=== PATIENT | female | born 1965 | race Caucasian/White ===

== ENCOUNTER 2022-04-13 11:39 | Inpatient (IN) | payer MEDICARE, MEDICAID ==
[~2022-04-13] VITALS: Ht 154.9 cm; Wt 64.9 kg
[2022-04-13 12:19] LABS: BASOPHILS # (AUTO) 0.1 10^3/uL (0.0-0.1); BASOPHILS % (AUTO) 0 % (0-10); EOSINOPHILS % (AUTO) 0 % (0-10); HEMATOCRIT 38 % (35-52); HEMOGLOBIN 11.7 g/dL (11.5-16.0); LYMPHOCYTES # (AUTO) 2.2 10^3/uL (1.0-4.0); LYMPHOCYTES % (AUTO) 9 % (12-44); MEAN CORPUSCULAR HEMOGLOBIN 22 pg (25-34); MEAN CORPUSCULAR HGB CONC 31 g/dL (32-36); MEAN CORPUSCULAR VOLUME 70 fL (80-99); MONOCYTES # (AUTO) 4.1 10^3/uL (0.0-1.0); MONOCYTES % (AUTO) 17 % (0-12); NEUTROPHILS # (AUTO) 16.8 10^3/uL (1.8-7.8); NEUTROPHILS % (AUTO) 72 % (42-75); PLATELET COUNT 446 10^3/uL (130-400); WHITE BLOOD COUNT 23.3 10^3/uL (4.3-11.0)
[2022-04-13] MEDS ORDERED: NS IV 1000 ML 1,000 ML IV STA (12:20)
--- NOTE | 2022-04-13 12:25 | ED General ---
General Chief Complaint: Abdominal/GI Problems Stated Complaint: RLQ PAIN, BACK PAIN, FEVER Nursing Triage Note: PT PRESENTS TO ED VIA POV ACCOMPANIED BY [facility] [employer] FOR ON GOING RASH, AND R LOWER QUADRAND PAIN, AND N/V. Source of Information: Patient Exam Limitations: No Limitations (ALICIA BERNSTEIN) History of Present Illness Date Seen by Provider: Apr 13, 2022 Time Seen by Provider: 12:22 Initial Comments Patient is a 56-year-old female with a history of CLL remission for years, stroke, COPD who is homeless who presents to ED with multiple complaints. She states she has been having this right lower quadrant pain since last night. Described as sharp with radiation to the right flank. She reports some decreased urine output with burning with urination. She states she has been having vomiting over the past 3 days without any blood or mucus. She states she is concerned she is vomiting up infections. She has had this diffuse red rash over the past several months. Has been treated recently with amoxicillin topical antibiotic ointment without much improvement. She presents ED with [facility] for further evaluation as patient is homeless and not currently being treated for her current symptoms. She states she has been seen at the [facility]. Recently moving to [place] from [place]. She denies history of previous abdominal surgery. Currently on aspirin. Denies any chest pain, headache, visual changes, sore throat, unilateral muscle weakness or sensory changes. She reports a chronic cough but does have breathing treatments at home however she has not been using the medication as she is concerned that she may have lost the medication. No suicidal homicidal thoughts. Patient denies any drug use. Denies of any dark tarry stool, diarrhea. No history of previous colonoscopy (ALICIA BERNSTEIN) Allergies and Home Medications Allergies Coded Allergies: alcohol (Verified Allergy, Unknown, 04/13/22) morphine (Verified Allergy, Unknown, 04/13/22) Patient Home Medication List Home Medication List Reviewed: Yes (ALICIA BERNSTEIN) Review of Systems Review of Systems Constitutional: No chills, No diaphoresis, No malaise, No weakness EENTM: No ear pain, No blurred vision, No double vision, No tearing, No mouth pain, No mouth swelling, No nose pain, No throat pain, No throat swelling Respiratory: cough; No short of breath Cardiovascular: No chest pain Gastrointestinal: RLQ, abdominal pain; No diarrhea; nausea, vomiting Genitourinary: decreased output, dysuria Musculoskeletal: back pain Skin: change in color; No change in hair/nails; rash (Diffuse erythematous crusty rash) (ALICIA BERNSTEIN) All Other Systems Reviewed Negative Unless Noted: Yes (ALICIA BERNSTEIN) Past Hsrxuop-Cgimou-Gqymvn Hx Patient Social History Tobacco Use?: Yes Tobacco type used: Cigarettes Smoking Status: Current Everyday Smoker Substance use?: No Alcohol Use?: No Pt feels they are or have been: No (ALICIA BERNSTEIN) Immunizations Up To Date First/Initial COVID19 Vaccinat: YES Second COVID19 Vaccination Jamaal: YES (ALICIA BERNSTEIN) Past Medical History Surgery/Hospitalization HX: PMH: ANXIETY, PTSD, HTN, DEPRESSION, COPD, POPCORN LUNG, FIBRO, RLS (ALICIA BERNSTEIN) Physical Exam Vital Signs Vital Signs - First Documented 04/13/22 12:09 Pulse 117 Resp 16 B/P (MAP) 139/82 (101) Pulse Ox 95 (KENNEDI RODRIGUEZ MD) Vital Signs Capillary Refill : Less Than 3 Seconds (ALICIA BERNSTEIN) Height, Weight, BMI Height: '" Weight: lbs. oz. kg; 26.00 BMI Method: General Appearance: No Apparent Distress, WD/WN Eyes: Bilateral Eye Normal Inspection, Bilateral Eye PERRL, Bilateral Eye EOMI HEENT: PERRL/EOMI, TMs Normal, Normal ENT Inspection, Pharynx Normal, Other (Dry oral mucosal) Neck: Full Range of Motion, Normal Inspection, Non Tender, Supple Respiratory: Chest Non Tender, Normal Breath Sounds, No Accessory Muscle Use, No Respiratory Distress, Wheezing (Bilateral wheezing expiratory without respiratory distress) Cardiovascular: Regular Rate, Rhythm, No Edema, No Gallop, No JVD, No Murmur Gastrointestinal: Normal Bowel Sounds, No Organomegaly, No Pulsatile Mass, Soft, Tenderness (Right lower quadrant tenderness on palpation) Back: Normal Inspection, No CVA Tenderness, No Vertebral Tenderness Extremity: Normal Capillary Refill, Normal Inspection, Normal Range of Motion Neurologic/Psychiatric: Alert, Oriented x3, No Motor/Sensory Deficits, Normal Mood/Affect Skin: Other (diffuse erythematous papular rash with crusting. No fluctuant mass.) (ALICIA BERNSTEIN) Focused Exam Lactate Level 04/13/22 13:02: Lactic Acid Level 1.78 (KENNEDI RODRIGUEZ MD) Lactic Acid Level Laboratory Tests Test 04/13/22 13:02 Lactic Acid Level 1.78 MMOL/L (0.50-2.00) (KENNEDI RODRIGUEZ MD) Progress/Results/Core Measures Suspected Sepsis SIRS Temperature: Pulse: 117 Respiratory Rate: 16 Laboratory Tests 04/13/22 12:04: White Blood Count 23.3H Blood Pressure 139 /82 Mean: 101 04/13/22 13:02: Lactic Acid Level 1.78 Laboratory Tests 04/13/22 12:04: Creatinine 0.89, INR Comment 1.2, Platelet Count 446H, Total Bilirubin 1.1H (ALICIA BERNSTEIN) Results/Orders Lab Results Laboratory Tests Test 04/13/22 12:04 04/13/22 12:45 04/13/22 13:02 Range/Units White Blood Count 23.3 H 4.3-11.0 10^3/uL Red Blood Count 5.45 H 3.80-5.11 10^6/uL Hemoglobin 11.7 11.5-16.0 g/dL Hematocrit 38 35-52 % Mean Corpuscular Volume 70 L 80-99 fL Mean Corpuscular Hemoglobin 22 L 25-34 pg Mean Corpuscular Hemoglobin Concent 31 L 32-36 g/dL Red Cell Distribution Width 16.5 H 10.0-14.5 % Platelet Count 446 H 130-400 10^3/uL Mean Platelet Volume 10.0 9.0-12.2 fL Immature Granulocyte % (Auto) 1 % Neutrophils (%) (Auto) 72 42-75 % Lymphocytes (%) (Auto) 9 L 12-44 % Monocytes (%) (Auto) 17 H 0-12 % Eosinophils (%) (Auto) 0 0-10 % Basophils (%) (Auto) 0 0-10 % Neutrophils # (Auto) 16.8 H 1.8-7.8 10^3/uL Lymphocytes # (Auto) 2.2 1.0-4.0 10^3/uL Monocytes # (Auto) 4.1 H 0.0-1.0 10^3/uL Eosinophils # (Auto) 0.0 0.0-0.3 10^3/uL Basophils # (Auto) 0.1 0.0-0.1 10^3/uL Immature Granulocyte # (Auto) 0.2 H 0.0-0.1 10^3/uL Neutrophils % (Manual) 74 % Lymphocytes % (Manual) 11 % Monocytes % (Manual) 15 % Hypochromasia SLIGHT Anisocytosis SLIGHT Microcytosis SLIGHT Prothrombin Time 15.7 H 12.2-14.7 SEC INR Comment 1.2 0.8-1.4 Activated Partial Thromboplast Time 37 H 24-35 SEC Sodium Level 132 L 135-145 MMOL/L Potassium Level 3.6 3.6-5.0 MMOL/L Chloride Level 92 L 98-107 MMOL/L Carbon Dioxide Level 30 21-32 MMOL/L Anion Gap 10 5-14 MMOL/L Blood Urea Nitrogen 9 7-18 MG/DL Creatinine 0.89 0.60-1.30 MG/DL Estimat Glomerular Filtration Rate 77 BUN/Creatinine Ratio 10 Glucose Level 112 H 70-105 MG/DL Calcium Level 9.2 8.5-10.1 MG/DL Corrected Calcium 9.1 8.5-10.1 MG/DL Total Bilirubin 1.1 H 0.1-1.0 MG/DL Aspartate Amino Transf (AST/SGOT) 41 H 5-34 U/L Alanine Aminotransferase (ALT/SGPT) 19 0-55 U/L Alkaline Phosphatase 109 40-136 U/L C-Reactive Protein High Sensitivity 16.55 H 0.00-0.50 MG/DL Total Protein 7.9 6.4-8.2 GM/DL Albumin 4.1 3.2-4.5 GM/DL Urine Color YELLOW Urine Clarity CLEAR Urine pH 7.5 5-9 Urine Specific [place] 1.010 L 1.016-1.022 Urine Protein TRACE H NEGATIVE Urine Glucose (UA) NEGATIVE NEGATIVE Urine Ketones NEGATIVE NEGATIVE Urine Nitrite NEGATIVE NEGATIVE Urine Bilirubin NEGATIVE NEGATIVE Urine Urobilinogen 0.2 < = 1.0 MG/DL Urine Leukocyte Esterase 2+ H NEGATIVE Urine RBC (Auto) NEGATIVE NEGATIVE Urine RBC RARE /HPF Urine WBC 5-10 H /HPF Urine Squamous Epithelial Cells 25-50 H /HPF Urine Crystals PRESENT H /LPF Urine Amorphous Sediment RARE ANKIT PHOSPHATE H /LPF Urine Bacteria FEW H /HPF Urine Casts NONE /LPF Urine Mucus NEGATIVE /LPF Urine Culture Indicated NO Urine Opiates Screen NEGATIVE NEGATIVE Urine Oxycodone Screen NEGATIVE NEGATIVE Urine Methadone Screen NEGATIVE NEGATIVE Urine Propoxyphene Screen NEGATIVE NEGATIVE Urine Barbiturates Screen NEGATIVE NEGATIVE Ur Tricyclic Antidepressants Screen NEGATIVE NEGATIVE Urine Phencyclidine Screen NEGATIVE NEGATIVE Urine Amphetamines Screen NEGATIVE NEGATIVE Urine Methamphetamines Screen NEGATIVE NEGATIVE Urine Benzodiazepines Screen POSITIVE H NEGATIVE Urine Cocaine Screen NEGATIVE NEGATIVE Urine Cannabinoids Screen NEGATIVE NEGATIVE Lactic Acid Level 1.78 0.50-2.00 MMOL/L (KENNEDI RODRIGUEZ MD) My Orders Orders - KENNEDI RODRIGUEZ MD Cbc With Automated Diff (04/13/22 11:48) Comprehensive Metabolic Panel (04/13/22 11:48) Hs C Reactive Protein (04/13/22 11:48) Ua Culture If Indicated (04/13/22 11:48) Ed Iv/Invasive Line Start (04/13/22 11:48) Manual Differential (04/13/22 12:04) (KENNEDI RODRIGUEZ MD) Medications Given in ED Current Medications Medications Dose Ordered Sig/Martha Route Start Time Stop Time Status Last Admin Dose Admin Cefepime HCl 1000 mg/Sodium Chloride 50 ml @ 100 mls/hr ONCE ONCE IV 04/13/22 12:45 04/13/22 13:14 DC 04/13/22 13:23 100 MLS/HR Iohexol 100 ml ONCE ONCE IV 04/13/22 13:00 04/13/22 13:01 DC 04/13/22 12:59 79 ML Ondansetron HCl 4 mg ONCE ONCE IVP 04/13/22 12:30 04/13/22 12:31 DC 04/13/22 12:29 4 MG Sodium Chloride 10 ml NEEDED PRN IV 04/13/22 13:00 04/13/22 12:59 10 ML Sodium Chloride 100 ml ONCE ONCE IV 04/13/22 13:00 04/13/22 13:01 DC 04/13/22 12:59 80 ML (KENNEDI RODRIGUEZ MD) Vital Signs/I&O 04/13/22 12:09 Pulse 117 Resp 16 B/P (MAP) 139/82 (101) Pulse Ox 95 (KENNEDI RODRIGUEZ MD) Vital Signs/I&O Capillary Refill : Less Than 3 Seconds (ALICIA BERNSTEIN) Blood Pressure Mean: 101 Departure Communication (Admissions) Time/Spoke to Admitting Phy: 13:46 Dr. Villegas accepts patient. Consulted Dr. West concerning for colon cancer with metastasis (ALICIA BERNSTEIN) Communication (PCP) Patient with a history of CLL, COPD, stroke who presents ED with right lower quad abdominal pain with radiation to right flank. Associated vomiting with urinary symptoms. Patient was tachycardic with a low-grade temperature of 99.6. Elevated white blood count of 23,000. She states she is currently in remission for years from CLL. Unclear what her previous white blood count has shown in the past. Urinalysis did show concerning for infection but did have moderate amount of squamous cell. Patient was given cefepime with a liter of fluid. Blood cultures pending with normal lactic acid. Patient drug screen positive for benzos. Denies any drug use. Chest x-ray was negative for pneumonia. She denies breathing treatments. She is homeless but does have some expiratory wheezing. She has no chest pain short of breath or worsening cough at this time. CT scan of the abdomen pelvis concerning for colon cancer with malignancy to the liver. Strong family history of colon cancer with her mother who . Patient would likely benefit with colonoscopy and further evaluation. This was discussed with Dr. West who recommends clear liquids at this time. She does have a notable rash for the past several months. Concerning for infectious etiology. She states she has been on antibiotics in the past. Due to elevated white blood count and abdominal mass patient will be admitted for further evaluation. Patient was discussed with Dr. Kirkland who accepts patient at this time (ALICIA BERNSTEIN) Impression Primary Impression: UTI (urinary tract infection) Additional Impressions: Abdominal mass COPD (chronic obstructive pulmonary disease) Leukocytosis Disposition: ADMITTED INPATIENT Condition: Stable Admissions Decision to Admit Reason: Admit from ER (General) Decision to Admit/Date: Apr 13, 2022 Time/Decision to Admit Time: 13:46 (ALICIA BERNSTEIN) Departure-Patient Inst. Referrals: NO,LOCAL PHYSICIAN (PCP/Family) Primary Care Physician ATTENDING PHYSICIAN NOTE: I was physically present as attending physician in the emergency department during the care of this patient. I have placed orders based off of chief complaint and triage information. I was otherwise not directly involved in the decision making or delivery of care for this patient. (KENNEDI RODRIGUEZ MD) ALICIA BERNSTEIN Apr 13, 2022 12:25 KENNEDI RODRIGUEZ MD Apr 13, 2022 19:16
[2022-04-13] MEDS ORDERED: ONDANSETRON 4 MG/2 ML (SDV) Z0FRAN ONE (12:26)
[2022-04-13] MEDS ORDERED: NS IV 1000 ML 1,000 ML ONE (12:26)
[2022-04-13] MEDS ORDERED: ONDANSETRON 4 MG/2 ML (SDV) Z0FRAN IVP ONE (12:30)
[2022-04-13 12:33] LABS: ALBUMIN 4.1 GM/DL (3.2-4.5); POTASSIUM 3.6 MMOL/L (3.6-5.0)
[2022-04-13 12:34] LABS: CALCIUM 9.2 MG/DL (8.5-10.1)
[2022-04-13 12:36] LABS: TOTAL PROTEIN 7.9 GM/DL (6.4-8.2)
[2022-04-13 12:37] LABS: BILIRUBIN,TOTAL 1.1 MG/DL (0.1-1.0); INR 1.2 (0.8-1.4); PROTHROMBIN TIME PATIENT 15.7 SEC (12.2-14.7)
[2022-04-13 12:39] LABS: CREATININE SERUM 0.89 MG/DL (0.60-1.30)
[2022-04-13] MEDS ORDERED: CEFEPIME INJECTION 1,000 MG in NS (IVPB) 50 ML IV ONE (12:45)
--- NOTE | 2022-04-13 12:47 | Diagnostic Imaging Report ---
INDICATION: Cough. FINDINGS: Lungs are clear. There is no failure, effusion, or pneumothorax. Old healed rib deformity posterior right laterally at the sixth rib as a chronic finding noted. IMPRESSION: No acute-appearing abnormality. Dictated by: Dictated on workstation # [id number]
[2022-04-13 12:48] LABS: LYMPHOCYTES % (MANUAL) 11 %; NEUTROPHILS % (MANUAL) 74 %
[2022-04-13 12:49] LABS: ANISOCYTOSIS SLIGHT; HYPOCHROMASIA SLIGHT; MICROCYTOSIS SLIGHT; MONOCYTES % (MANUAL) 15 %
[2022-04-13 12:52] LABS: BILIRUBIN,URINE NEGATIVE (NEGATIVE); CLARITY,URINE CLEAR; COLOR,URINE YELLOW; GLUCOSE, URINE (UA) NEGATIVE (NEGATIVE); KETONES,URINE NEGATIVE (NEGATIVE); LEUKOCYTE ESTERASE ,URINE 2+ (NEGATIVE); NITRITE,URINE NEGATIVE (NEGATIVE); PH,URINE 7.5 (5-9); PROTEIN,URINE TRACE (NEGATIVE)
[2022-04-13] MEDS ORDERED: CATHETER FLUSH 10 ML SYR IV PRN (13:00)
[2022-04-13] MEDS ORDERED: HOLD METFORMIN - RECEIVED CONTRAST 20 ML VIAL IV SCH (13:00)
[2022-04-13] MEDS ORDERED: NS 100 ML (IVPB) BAG IV ONE (13:00)
[2022-04-13] MEDS ORDERED: IOHEXOL 350 MG/ML 100 ML (OMNIPAQUE 350) VIAL IV ONE (13:00)
--- NOTE | 2022-04-13 13:13 | Diagnostic Imaging Report ---
EXAMINATION: CT abdomen and pelvis with intravenous contrast. TECHNIQUE: Multiple contiguous axial images were obtained through the abdomen and pelvis after the uneventful administration of intravenous contrast. All CT scans use one or more of the following dose optimizing techniques: automated exposure control, MA and/or KvP adjustment based on patient size and exam type or iterative reconstruction. HISTORY: Right lower quadrant abdominal pain. Nausea and vomiting. COMPARISON: None available. FINDINGS: The heart is unremarkable. The included lung bases are clear. An ill-defined mass is seen in the central liver measuring 5.2 x 5.5 cm. A second similar-appearing lesion is visualized in the more posterior aspect of the right hepatic lobe measuring 5.2 x 3.9 cm. The portal vein is patent. The gallbladder is nondistended. The spleen, pancreas, adrenal glands, and kidneys have a normal appearance. There is no pathologically enlarged mesenteric or retroperitoneal adenopathy. A focal segment of bowel wall thickening and luminal stenosis is seen in the transverse colon near the splenic flexure. This segment measures approximately 3.6 cm in length. No evidence of bowel obstruction. Scattered diverticula are seen in the sigmoid colon without evidence of acute diverticulitis. The appendix is visualized in the right lower quadrant and has a normal appearance. There is no free fluid or free air. No acute osseous abnormalities. There is grade 1 anterolisthesis of L5 on S1 with bilateral pars defects at L5. There is calcified aortic and iliac atherosclerotic plaque without aneurysm. Ureters and bladder are grossly normal. There is no free air, loculated collection, or adenopathy in the pelvis. IMPRESSION: 1. Findings concerning for colon malignancy involving the transverse colon with metastatic lesions to the liver. Recommend GI consultation to further evaluate. The liver lesions would be amenable to percutaneous biopsy, if indicated. 2. Scattered diverticula in the sigmoid colon without evidence of acute diverticulitis. 3. Grade 1 anterolisthesis of L5 on S1 with bilateral pars defects at L5. Dictated by: Dictated on workstation # [id number]
[2022-04-13 13:20] LABS: AMPHETAMINE SCREEN, URINE NEGATIVE (NEGATIVE); BARBITURATE SCREEN URINE NEGATIVE (NEGATIVE); BENZODIAZEPINES SCREEN URINE POSITIVE (NEGATIVE); CANNABINOID SCREEN, URINE NEGATIVE (NEGATIVE); COCAINE SCREEN URINE NEGATIVE (NEGATIVE); METHADONE STAT NEGATIVE (NEGATIVE); OPIATE SCREEN URINE NEGATIVE (NEGATIVE); OXYCODONE STAT NEGATIVE (NEGATIVE); PROPOXYPHENE STAT NEGATIVE (NEGATIVE); TRICYCLIC ANTIDEPRESSANTS SCRE NEGATIVE (NEGATIVE)
[2022-04-13 13:25] LABS: AMORPHOUS SEDIMENT,UR RARE AMOR PHOSPHATE /LPF; BACTERIA,URINE FEW /HPF; RBC,URINE RARE /HPF; SQUAMOUS EPITHELIAL CELL,UR 25-50 /HPF
[2022-04-13 16:00] VITALS: BP 116/69
[2022-04-13] MEDS ORDERED: ONDANSETRON 4 MG (ZOFRAN) ORAL DISSOLVE TAB PO PRN (16:00)
[2022-04-13] MEDS ORDERED: CALCIUM CARBONATE 500 MG (TUMS) TAB.CHEW PO PRN (16:00)
[2022-04-13] MEDS ORDERED: ONDANSETRON 4 MG/2 ML (SDV) Z0FRAN IV PRN (16:00)
[2022-04-13] MEDS ORDERED: MELATONIN 3 MG TABLET PO PRN (16:00)
[2022-04-13] MEDS ORDERED: BISACODYL 10 MG SUPP (DULCOLAX) PR PRN (16:00)
[2022-04-13] MEDS ORDERED: diphenhydrAMINE 25 MG TAB (BENADRYL) PO PRN (16:00)
[2022-04-13] MEDS ORDERED: polyethylene glycoL POWDER 17 GM (MIRALAX) PACK PO PRN (16:00)
[2022-04-13] MEDS ORDERED: MILK OF MAGNESIA 400 MG/5 ML 30 ML UDC PO PRN (16:00)
[2022-04-13] MEDS ORDERED: ANTACID SUSP 30 ML UDC (MYLANTA) PO PRN (16:00)
[2022-04-13] MEDS ORDERED: diphenhydrAMINE 50 MG/ML INJ (BENADRYL) IVP PRN (16:00)
[2022-04-13] MEDS ORDERED: LACTULOSE SYRUP 10GM/15ML (ENULOSE) 30ML UDC PO PRN (16:00)
--- NOTE | 2022-04-13 16:39 | Consultation - Surgery ---
History of Present Illness History of Present Illness Patient Consulted On(edouard/time) 04/13/22 15:33 Date Seen by Provider: Apr 13, 2022 Time Seen by Provider: 15:33 History of Present Illness Seen and evaluated in ED. Consult requested by Dr. Kirkland for abdominal mass. Patient is a 56 year old female with 3 days of nausea vomiting and abdominal pain. Pain mostly in right lower quadrant but also generalized. Pain moves into back. Nothing making better or worse. Decreased and burning urination. She has a hard time keeping fluids and food down. She has never had a colonoscopy. She has a family history of colon cancer. Her personal history of CLL, stroke and COPD. Patient had ct scan showing colonic mass and liver masses, diverticulosis. Allergies and Home Medications Allergies Coded Allergies: alcohol (Verified Allergy, Unknown, 04/13/22) morphine (Verified Allergy, Unknown, 04/13/22) Patient Home Medication List Home Medication List Reviewed: Yes Past Llkxipu-Ydzdev-Yqvamt Hx Patient Social History Smoking Status: Current Everyday Smoker Alcohol Use?: No Have you traveled recently?: No Surgeries History of Surgeries: No Respiratory History of Respiratory Disorde: Yes (COPD) Cardiovascular History of Cardiac Disorders: No Neurological History of Neurological Disord: No Genitourinary History of Genitourinary Disor: Yes Genitourinary Disorders: Bladder Infection Gastrointestinal History of Gastrointestinal Di: No Musculoskeletal History of Musculoskeletal Dis: No Endocrine History of Endocrine Disorders: No HEENT History of HEENT Disorders: No Cancer History of Cancer: Yes (CLL) Psychosocial History of Psychiatric Problem: No Integumentary History of Skin or Integumenta: Yes Skin/Integumentary Disorders: Recent Skin Changes Family Medical History Significant Family History: Cancer Review of Systems-General Constitutional: No chills, No diaphoresis EENTM: No blurred vision, No double vision Respiratory: cough; No dyspnea on exertion Cardiovascular: No chest pain, No palpitations Gastrointestinal: abdominal pain, nausea, vomiting Genitourinary: decreased output; No discharge Musculoskeletal: back pain; No joint pain Skin: No change in hair/nails; rash Psychiatric/Neurological: Denies Anxiety, Denies Depressed, Denies Emotional Problems All Other Systems Reviewed Negative Unless Noted: Yes (Negative excepted noted.) Physical Exam-General Problems Physical Exam Vital Signs Vital Signs - First Documented 04/13/22 12:09 Pulse 117 Resp 16 B/P (MAP) 139/82 (101) Pulse Ox 95 Capillary Refill : Less Than 3 Seconds General Appearance: WD/WN, no apparent distress HEENT: PERRL/EOMI, normal ENT inspection Neck: non-tender, supple Respiratory: chest non-tender, no respiratory distress, no accessory muscle use Cardiovascular: regular rate, rhythm, no JVD Gastrointestinal: soft, tenderness (generalized), mass (right upper quadrant), hepatomegaly Rectal: deferred Back: normal inspection, no CVA tenderness Extremities: normal range of motion, non-tender Neurologic/Psychiatric: alert, normal mood/affect, oriented x 3 Skin: warm/dry, rash Lymphatic: no adenopathy Data Review Labs Laboratory Tests 04/13/22 12:04: White Blood Count 23.3H, Red Blood Count 5.45H, Hemoglobin 11.7, Hematocrit 38, Mean Corpuscular Volume 70L, Mean Corpuscular Hemoglobin 22L, Mean Corpuscular Hemoglobin Concent 31L, Red Cell Distribution Width 16.5H, Platelet Count 446H, Mean Platelet Volume 10.0, Immature Granulocyte % (Auto) 1, Neutrophils (%) (Auto) 72, Lymphocytes (%) (Auto) 9L, Monocytes (%) (Auto) 17H, Eosinophils (%) (Auto) 0, Basophils (%) (Auto) 0, Neutrophils # (Auto) 16.8H, Lymphocytes # (Auto) 2.2, Monocytes # (Auto) 4.1H, Eosinophils # (Auto) 0.0, Basophils # (Auto) 0.1, Immature Granulocyte # (Auto) 0.2H, Neutrophils % (Manual) 74, Lymphocytes % (Manual) 11, Monocytes % (Manual) 15, Hypochromasia SLIGHT, Ani socytosis SLIGHT, Microcytosis SLIGHT, Prothrombin Time 15.7H, INR Comment 1.2, Activated Partial Thromboplast Time 37H, Sodium Level 132L, Potassium Level 3.6, Chloride Level 92L, Carbon Dioxide Level 30, Anion Gap 10, Blood Urea Nitrogen 9, Creatinine 0.89, Estimat Glomerular Filtration Rate 77, BUN/Creatinine Ratio 10, Glucose Level 112H, Calcium Level 9.2, Corrected Calcium 9.1, Total Bili pineda 1.1H, Aspartate Amino Transf (AST/SGOT) 41H, Alanine Aminotransferase (ALT/SGPT) 19, Alkaline Phosphatase 109, C-Reactive Protein High Sensitivity 16.55H, Total Protein 7.9, Albumin 4.1 04/13/22 12:45: Urine Color YELLOW, Urine Clarity CLEAR, Urine pH 7.5, Urine Specific [place] 1.010L, Urine Protein TRACEH, Urine Glucose (UA) NEGATIVE, Urine Ketones NEGATIVE, Urine Nitrite NEGATIVE, Urine Bilirubin NEGATIVE, Urine Urobilinogen 0.2, Urine Leukocyte Esterase 2+H, Urine RBC (Auto) NEGATIVE, Urine RBC RARE, Urine WBC 5-10H, Urine Squamous Epithelial Cells 25-50H, Urine Crystals PRESENTH , Urine Amorphous Sediment RARE ANKIT PHOSPHATEH, Urine Bacteria FEWH, Urine Casts NONE, Urine Mucus NEGATIVE, Urine Culture Indicated NO, Urine Opiates Screen NEGATIVE, Urine Oxycodone Screen NEGATIVE, Urine Methadone Screen NEGATIVE, Urine Propoxyphene Screen NEGATIVE, Urine Barbiturates Screen NEGATIVE, Ur Tricyclic Antidepressants Screen NEGATIVE, Urine Phencyclidine Screen NEGATIVE, Urine Amphetamines Screen NEGATIVE, Urine Methamphetamines Screen NEGATIVE, Urine Benzodiazepines Screen POSITIVEH, Urine Cocaine Screen NEGATIVE, Urine Cannabinoids Screen NEGATIVE 04/13/22 13:02: Lactic Acid Level 1.78 Assessment/Plan Assessment/Plan Assessment/Plan abdominal mass liver masses generalized abdominal pain UTI nasuea and vomiting admitted to dr. kirkland clear liquids as tolerates antibiotics for uti once can keep fluids will need colonoscopy she is not able to prep at this time will do when able i reviewed ct scan and results with patient may need liver biopsy by ir IV Fluids Repeat labs in am Clinical Quality Measures DVT/VTE Risk/Contraindication: Contraindications-Pharm: Other *list below* Other: surgery FLETCHER ALLAN DO Apr 13, 2022 16:39
[2022-04-13 16:50] VITALS: BP 122/79
[2022-04-13] MEDS: NS IV 1000 ML 1,000 ML IV SCH (16:51)
[2022-04-13] MEDS: ACETAMINOPHEN 325 MG TABLET PO PRN (16:52)
[2022-04-13] MEDS: fentaNYL INJ 100 MCG/2 ML AMP IVP PRN (16:52)
[2022-04-13] MEDS ORDERED: RT-ALBUTEROL/IPRATROPIUM 3 ML (DUONEB) VIAL INH PRN (17:15)
[2022-04-13] MEDS: RT-ALBUTEROL/IPRATROPIUM 3 ML (DUONEB) VIAL INH SCH ×2 (18:30→21:35)
[2022-04-13] MEDS: CEFEPIME INJECTION 1,000 MG in NS (IVPB) 50 ML IV SCH (19:49)
[2022-04-13] MEDS: DOCUSATE SODIUM 100 MG (COLACE) CAP PO SCH (19:52)
[2022-04-13] MEDS: SENNOSIDES 8.6 MG (SENOKOT) TAB PO SCH (19:52)
[2022-04-13 20:00] VITALS: BP 109/60
[2022-04-13 23:19] VITALS: BP 104/70
[2022-04-14] MEDS: NS IV 1000 ML 1,000 ML IV SCH ×4 (00:06→18:11)
[2022-04-14] MEDS: ACETAMINOPHEN 325 MG TABLET PO PRN ×2 (00:06→20:09)
[2022-04-14] MEDS: CEFEPIME INJECTION 1,000 MG in NS (IVPB) 50 ML IV SCH ×4 (01:38→19:59)
[2022-04-14] MEDS: RT-ALBUTEROL/IPRATROPIUM 3 ML (DUONEB) VIAL INH SCH ×5 (02:01→18:26)
[2022-04-14 03:35] VITALS: BP 97/65
[2022-04-14] MEDS: LORazepam 0.5 MG (ATIVAN) TABLET PO PRN ×3 (03:47→23:22)
[2022-04-14] MEDS: fentaNYL INJ 100 MCG/2 ML AMP IVP PRN (03:51)
--- NOTE | 2022-04-14 05:59 | History & Physical-Hospitalist ---
History of Present Illness HPI/Chief Complaint CC: Abdominal pain HPI: This is a 56 yr old female clinic pt of [facility]. She presented with abdominal pain and was found to have colon mass with liver metastasis and UTI. Currently she is very upset and wants to eat, but a colonoscopy needs to be done to obtain a biopsy. Then further management from that angle. She reports her mother had colon cancer too. Pt is very unrealistic. She still has nausea and vomiting, but still wants to eat food. Source: patient Exam Limitations: clinical condition Date Seen 04/14/22 Time Seen by a Provider: 09:00 Attending Physician No,Local Physician PCP Admitting Physician: Azucena Kirkland DO Attending Physician: Azucena Kirkland DO Referring Physician Date of Admission Apr 13, 2022 at 15:31 Home Medications & Allergies Home Medications Reviewed patient Home Medication Reconciliation performed by pharmacy medication reconciliations glass technician and/or nursing. Patients Allergies have been reviewed. Allergies Allergies Coded Allergies alcohol (Verified Allergy, Unknown, Hives, 04/13/22) morphine (Verified Allergy, Unknown, Hives, 04/13/22) Past [id number] Hx Patient Social History Marrital Status: single Employed/Student: unemployed Tobacco Use?: Yes Tobacco type used: Cigarettes Smoking Status: Current Everyday Smoker Use of E-Cig and/or Vaping dev: No Substance use?: No Alcohol Use?: No Pt feels they are or have been: No Immunizations Up To Date First/Initial COVID19 Vaccinat: 3 YEARS AGO Second COVID19 Vaccination Jamaal: YES Tetanus Booster (TDap): Unknown Hepatitis A: No Hepatitis B: No Current Status Advance Directives: No Communicates: Verbally Primary Language: Yemeni Preferred Spoken Language: Yemeni Is interpretation needed?: No Implanted or Applied Medical D: None Past Medical History Bladder Infection Recent Skin Changes Family Medical History Cancer Review of Systems Constitutional: see HPI, malaise, weakness EENTM: no symptoms reported Respiratory: no symptoms reported Gastrointestinal: abdominal pain, loss of appetite, nausea, vomiting Genitourinary: no symptoms reported Musculoskeletal: no symptoms reported Skin: no symptoms reported Psychiatric/Neurological: Anxiety, Depressed All Other Systems Reviewed Negative Unless Noted: Yes Physical Exam Physical Exam Vital Signs Vital Signs - First Documented 04/13/22 04/13/22 12:09 16:00 Temp 40.1 Pulse 117 Resp 16 B/P (MAP) 139/82 (101) Pulse Ox 95 O2 Delivery Nasal Cannula O2 Flow Rate 4.00 Capillary Refill : Less Than 3 Seconds Height, Weight, BMI Height: '" Weight: lbs. oz. kg; 27.04 BMI Method: General Appearance: Anxious, Chronically ill, Moderate Distress Eyes: Right Eye Normal Inspection, Right Eye PERRL HEENT: PERRL/EOMI, Normal ENT Inspection, Pharynx Normal, Moist Mucous Membranes Neck: Full Range of Motion, Normal Inspection, Non Tender Respiratory: Chest Non Tender, Lungs Clear, Normal Breath Sounds, No Accessory Muscle Use, No Respiratory Distress Cardiovascular: Regular Rate, Rhythm, No Edema, No Gallop, No JVD, No Murmur, Normal Peripheral Pulses Gastrointestinal: Normal Bowel Sounds, No Organomegaly, No Pulsatile Mass, Tenderness Back: Normal Inspection, No CVA Tenderness, No Vertebral Tenderness Extremity: Normal Capillary Refill, Normal Inspection, Normal Range of Motion, Non Tender, No Calf Tenderness, No Pedal Edema Neurologic/Psychiatric: Alert, Oriented x3, No Motor/Sensory Deficits, Normal Mood/Affect Skin: Normal Color, Warm/Dry Lymphatic: No Adenopathy Results Results/Procedures Labs Laboratory Tests 04/13/22 12:04 04/14/22 05:40 Patient resulted labs reviewed. Assessment/Plan Admission Diagnosis Assessment: Abdominal pain UTI Colon mass with liver mets Smoker Plan: Pain control IV abx Admission Status: Inpatient Order (span 2 midnights) Reason for Inpatient Admission: colon mass with mets and UTI Diagnosis/Problems Diagnosis/Problems (1) Abdominal mass Status: Acute (2) UTI (urinary tract infection) Status: Acute (3) Leukocytosis Status: Acute (4) COPD (chronic obstructive pulmonary disease) Status: Acute Clinical Quality Measures DVT/VTE Risk/Contraindication: Contraindications-Pharm: Other *list below* Other: surgery AZUCENA KIRKLAND DO Apr 14, 2022 05:59
[2022-04-14 06:37] LABS: BASOPHILS # (AUTO) 0.1 10^3/uL (0.0-0.1); BASOPHILS % (AUTO) 0 % (0-10); EOSINOPHILS # (AUTO) 0.1 10^3/uL (0.0-0.3); EOSINOPHILS % (AUTO) 0 % (0-10); HEMATOCRIT 33 % (35-52); HEMOGLOBIN 9.7 g/dL (11.5-16.0); LYMPHOCYTES # (AUTO) 2.1 10^3/uL (1.0-4.0); LYMPHOCYTES % (AUTO) 10 % (12-44); MEAN CORPUSCULAR HEMOGLOBIN 21 pg (25-34); MEAN CORPUSCULAR HGB CONC 29 g/dL (32-36); MEAN CORPUSCULAR VOLUME 73 fL (80-99); MEAN PLATELET VOLUME 10.5 fL (9.0-12.2); MONOCYTES # (AUTO) 3.7 10^3/uL (0.0-1.0); MONOCYTES % (AUTO) 18 % (0-12); NEUTROPHILS # (AUTO) 14.3 10^3/uL (1.8-7.8); NEUTROPHILS % (AUTO) 70 % (42-75); PLATELET COUNT 322 10^3/uL (130-400); WHITE BLOOD COUNT 20.3 10^3/uL (4.3-11.0)
[2022-04-14 06:49] LABS: ALBUMIN 3.3 GM/DL (3.2-4.5); POTASSIUM 3.7 MMOL/L (3.6-5.0)
[2022-04-14 06:50] LABS: CALCIUM 8.3 MG/DL (8.5-10.1)
[2022-04-14 06:51] LABS: TOTAL PROTEIN 6.3 GM/DL (6.4-8.2)
[2022-04-14 06:55] LABS: CREATININE SERUM 0.7 MG/DL (0.60-1.30)
[2022-04-14 08:11] VITALS: BP 111/72
[2022-04-14] MEDS: DOCUSATE SODIUM 100 MG (COLACE) CAP PO SCH ×2 (09:22→20:01)
[2022-04-14] MEDS: SENNOSIDES 8.6 MG (SENOKOT) TAB PO SCH ×2 (09:22→20:01)
--- NOTE | 2022-04-14 11:19 | Progress Note - Surgery ---
Subjective Date Seen by a Provider: Apr 14, 2022 Time Seen by a Provider: 11:19 Subjective/Events-last exam nausea and vomiting improved. patient still with mild abdominal pain g eneralized. wanting food. not willing to do prep. States she will not have colonoscopy till at least Tuesday. Patient states still just not feeling well. Reports fever. Denies nausea, vomiting sweats chills shortness of breath or chest pain. Focused Exam Lactate Level 04/13/22 13:02: Lactic Acid Level 1.78 Objective Exam Vital Signs Date Time Temp Pulse Resp B/P (MAP) Pulse Ox O2 Delivery O2 Flow Rate FiO2 04/14/22 10:29 99 Nasal Cannula 2.00 04/14/22 08:11 37.3 92 18 111/72 (85) 99 Nasal Cannula 2.00 04/14/22 08:00 Nasal Cannula 3.00 04/14/22 07:20 99 Nasal Cannula 3.00 04/14/22 03:35 36.2 87 18 97/65 (76) 100 High Flow N/C 4.00 04/14/22 02:01 99 Nasal Cannula 4.00 04/13/22 23:19 37.2 96 18 104/70 (81) 100 High Flow N/C 4.00 04/13/22 21:35 97 Nasal Cannula 4.00 04/13/22 20:00 36.7 96 18 109/60 (76) 99 04/13/22 19:50 Nasal Cannula 3.00 04/13/22 18:30 98 Nasal Cannula 4.00 04/13/22 18:00 36.6 04/13/22 16:52 40.0 04/13/22 16:50 112 93 04/13/22 16:00 40.1 102 22 116/69 (85) 92 Room Air 04/13/22 16:00 91 Nasal Cannula 4.00 04/13/22 15:54 112 16 122/79 93 04/13/22 12:09 117 16 139/82 (101) 95 I & O 04/14/22 07:00 Intake Total 850 ml Balance 850 ml Capillary Refill : Less Than 3 Seconds General Appearance: No Apparent Distress, WD/WN HEENT: PERRL/EOMI, Normal ENT Inspection, Pharynx Normal Neck: Full Range of Motion, Normal Inspection, Non Tender, Supple Respiratory: Chest Non Tender, No Accessory Muscle Use, No Respiratory Distress, Wheezing (Bilateral wheezing expiratory without respiratory distress) Cardiovascular: Regular Rate, Rhythm, No JVD Gastrointestinal: soft, tenderness (generalized), mass (right upper quadrant), hepatomegaly Extremity: Normal Capillary Refill, Normal Inspection, Normal Range of Motion Neurologic/Psychiatric: Alert, Oriented x3, No Motor/Sensory Deficits, Normal Mood/Affect Skin: Warm/Dry, Other (diffuse erythematous papular rash with crusting. ) Lymphatic: No Adenopathy Results Lab Laboratory Tests 04/13/22 12:04: White Blood Count 23.3H, Red Blood Count 5.45H, Hemoglobin 11.7, Hematocrit 38, Mean Corpuscular Volume 70L, Mean Corpuscular Hemoglobin 22L, Mean Corpuscular Hemoglobin Concent 31L, Red Cell Distribution Width 16.5H, Platelet Count 446H, Mean Platelet Volume 10.0, Immature Granulocyte % (Auto) 1, Neutrophils (%) (Auto) 72, Lymphocytes (%) (Auto) 9L, Monocytes (%) (Auto) 17H, Eosinophils (%) (Auto) 0, Basophils (%) (Auto) 0, Neutrophils # (Auto) 16.8H, Lymphocytes # (Auto) 2.2, Monocytes # (Auto) 4.1H, Eosinophils # (Auto) 0.0, Basophils # (Auto) 0.1, Immature Granulocyte # (Auto) 0.2H, Neutrophils % (Manual) 74, Lymph ocytes % (Manual) 11, Monocytes % (Manual) 15, Hypochromasia SLIGHT, Anisocytosis SLIGHT, Microcytosis SLIGHT, Prothrombin Time 15.7H, INR Comment 1.2, Activated Partial Thromboplast Time 37H, Sodium Level 132L, Potassium Level 3.6, Chloride Level 92L, Carbon Dioxide Level 30, Anion Gap 10, Blood Urea Nitrogen 9, Creatinine 0.89, Estimat Glomerular Filtration Rate 77, BUN/Creatinine Ratio 10, Glucose Level 112H, Calcium Level 9.2, Corrected Calcium 9.1, Total Bilirubin 1.1H, Aspartate Amino Transf (AST/SGOT) 41H, Alanine Aminotransferase (ALT/SGPT) 19, Alkaline Phosphatase 109, C-Reactive Protein High Sensitivity 16.55H, Total Protein 7.9, Albumin 4.1 04/13/22 12:45: Urine Color YELLOW, Urine Clarity CLEAR, Urine pH 7.5, Urine Specific [place] 1.010L, Urine Protein TRACEH, Urine Glucose (UA) NEGATIVE, Urine Ketones NEGATIVE, Urine Nitrite NEGATIVE, Urine Bilirubin NEGATIVE, Urine Urobilinogen 0.2, Urine Leukocyte Esterase 2+H, Urine RBC (Auto) NEGATIVE, Urine RBC RARE, Urine WBC 5-10H, Urine Squamous Epithelial Cells 25-50H, Urine Crystals PRESENTH , Urine Amorphous Sediment RARE ANKIT PHOSPHATEH, Urine Bacteria FEWH, Urine Casts NONE, Urine Mucus NEGATIVE, Urine Culture Indicated NO, Urine Opiates Screen NEGATIVE, Urine Oxycodone Screen NEGATIVE, Urine Methadone Screen NEGATIVE, Urine Propoxyphene Screen NEGATIVE, Urine Barbiturates Screen NEGATIVE, Ur Tricyclic Antidepressants Screen NEGATIVE, Urine Phencyclidine Screen NEGATIVE, Urine Amphetamines Screen NEGATIVE, Urine Methamphetamines Screen NEGATIVE, Urine Benzodiazepines Screen POSITIVEH, Urine Cocaine Screen NEGATIVE, Urine Cannabinoids Screen NEGATIVE 04/13/22 13:02: Lactic Acid Level 1.78 04/14/22 05:40: White Blood Count 20.3H, Red Blood Count 4.54, Hemoglobin 9.7L, Hematocrit 33L, Mean Corpuscular Volume 73L, Mean Corpuscular Hemoglobin 21L, Mean Corpuscular Hemoglobin Concent 29L, Red Cell Distribution Width 16.3H, Platelet Count 322, Mean Platelet Volume 10.5, Immature Granulocyte % (Auto) 1, Neutrophils (%) (Auto) 70, Lymphocytes (%) (Auto) 10L, Monocytes (%) (Auto) 18H, Eosinophils (%) (Auto) 0, Basophils (%) (Auto) 0, Neutrophils # (Auto) 14.3H, Lymphocytes # (Auto) 2.1, Monocytes # (Auto) 3.7H, Eosinophils # (Auto) 0.1, Basophils # (Auto) 0.1, Immature Granulocyte # (Auto) 0.1, Sodium Level 137, Potassium Level 3.7, Chloride Level 102, Carbon Dioxide Level 25, Anion Gap 10, Blood Urea Nitrogen 8, Creatinine 0.70, Estimat Glomerular Filtration Rate 103, BUN/Creatinine Ratio 11, Glucose Level 93, Calcium Level 8.3L, Corrected Calcium 8.9, Total Bilirubin 1.0, Aspartate Amino Transf (AST/SGOT) 23, Alanine Aminotransferase (ALT/SGPT) 14, Alkaline Phosphatase 88, Total Protein 6.3L, Albumin 3.3 Assessment/Plan Assessment/Plan Assessment/Plan abdominal mass liver masses generalized abdominal pain UTI nasuea and vomiting clear liquids as tolerates continue antibiotics once can keep fluids will need colonoscopy she is not able to prep at this time will do when able not willing to have colonoscopy yet may need liver biopsy by ir IV Fluids Repeat labs in am Clinical Quality Measures DVT/VTE Risk/Contraindication: Contraindications-Pharm: Other *list below* Other: surgery FLETCHER ALLAN DO Apr 14, 2022 11:19
[2022-04-14 11:25] VITALS: BP 119/59
[2022-04-14] MEDS ORDERED: HYDR25TA4 PO (12:07)
[2022-04-14] MEDS ORDERED: HYDR-700 PO (12:07)
[2022-04-14] MEDS ORDERED: ALBU18HF2 INH (12:07)
[2022-04-14] MEDS ORDERED: FLUT1BLS INH (12:07)
[2022-04-14] MEDS ORDERED: OMEG100032 PO (12:07)
[2022-04-14] MEDS ORDERED: ASCO-262 PO (12:07)
[2022-04-14] MEDS ORDERED: BUPR150T24 PO (12:07)
[2022-04-14] MEDS ORDERED: IBUP-1780 PO (12:07)
[2022-04-14] MEDS ORDERED: ASPI-1238 PO (12:07)
[2022-04-14] MEDS ORDERED: DIAZ10TA3 PO (12:07)
[2022-04-14] MEDS ORDERED: NON-FORMULARY MEDICATION 1 EA EA (Hydroxyzine HCl 25 MG) PO PRN (13:15)
[2022-04-14] MEDS ORDERED: IBUPROFEN 800 MG (MOTRIN) TAB PO PRN (13:15)
[2022-04-14] MEDS ORDERED: NON-FORMULARY MEDICATION 1 EA EA (Diazepam 10 MG) PO PRN (13:15)
[2022-04-14] MEDS ORDERED: RT-ALBUTEROL SULF 2.5 MG/3 ML PRE-MIX VIAL INH PRN (13:15)
[2022-04-14] MEDS: hydrOXYzine (VISTARIL/ATARAX) 25 MG capsule/tablet PO PRN (13:53)
[2022-04-14 16:00] VITALS: BP 135/101
[2022-04-14 20:00] VITALS: BP 101/67
[2022-04-15] VITALS (7 sets, daily range): BP systolic 107–138; BP diastolic 60–84
[2022-04-15] MEDS: CEFEPIME INJECTION 1,000 MG in NS (IVPB) 50 ML IV SCH ×4 (01:43→19:31)
[2022-04-15] MEDS: NS IV 1000 ML 1,000 ML IV SCH (03:51)
--- NOTE | 2022-04-15 05:57 | Progress Note - Hospitalist ---
Subjective HPI/CC On Admission Date Seen by Provider: Apr 15, 2022 Time Seen by Provider: 11:00 CC: Abdominal pain HPI: This is a 56 yr old female clinic pt of [facility]. She presented with abdominal pain and was found to have colon mass with liver metastasis and UTI. Currently she is very upset and wants to eat, but a colonoscopy needs to be done to obtain a biopsy. Then further management from that angle. She reports her mother had colon cancer too. Pt is very unrealistic. She still has nausea and vomiting, but still wants to eat food. Subjective/Events-last exam Pt is more reasonable today Wants a second opinion for Dr. Hudson Hep locking IV fluid Cefepime maintained for Bronchitis and UTI Singulair and Clairitin will be initiated Review of Systems General: Fatigue, Malaise Focused Exam Lactate Level 04/13/22 13:02: Lactic Acid Level 1.78 Objective Exam Vital Signs Vital Signs Date Time Temp Pulse Resp B/P (MAP) Pulse Ox O2 Delivery O2 Flow Rate FiO2 04/15/22 19:43 Nasal Cannula 3.00 04/15/22 19:10 38.4 100 24 119/75 (90) 92 Capillary Refill : Less Than 3 Seconds General Appearance: No Apparent Distress, WD/WN, Chronically ill Respiratory: Lungs Clear, Normal Breath Sounds Neurologic/Psychiatric: Alert, Oriented x3, No Motor/Sensory Deficits, Normal Mood/Affect Results/Procedures Lab Laboratory Tests 04/15/22 05:41 Patient resulted labs reviewed. Assessment/Plan Assessment and Plan Assess & Plan/Chief Complaint Assessment: Abdominal pain UTI Bronchitis Colon mass with liver mets Wheezing Smoker Plan: Pain control IV abx Lung meds Dr Hudson for second opinion Diagnosis/Problems Diagnosis/Problems (1) Abdominal mass Status: Acute (2) UTI (urinary tract infection) Status: Acute (3) Leukocytosis Status: Acute (4) COPD (chronic obstructive pulmonary disease) Status: Acute Clinical Quality Measures DVT/VTE Risk/Contraindication: Contraindications-Pharm: Other *list below* Other: surgery PILI ORTIZ DO Apr 15, 2022 05:57
[2022-04-15 06:11] LABS: BASOPHILS % (AUTO) 0 % (0-10); EOSINOPHILS # (AUTO) 0.1 10^3/uL (0.0-0.3); EOSINOPHILS % (AUTO) 1 % (0-10); HEMATOCRIT 34 % (35-52); HEMOGLOBIN 9.8 g/dL (11.5-16.0); LYMPHOCYTES # (AUTO) 1.6 10^3/uL (1.0-4.0); LYMPHOCYTES % (AUTO) 10 % (12-44); MEAN CORPUSCULAR HEMOGLOBIN 21 pg (25-34); MEAN CORPUSCULAR HGB CONC 29 g/dL (32-36); MEAN CORPUSCULAR VOLUME 72 fL (80-99); MEAN PLATELET VOLUME 10.5 fL (9.0-12.2); MONOCYTES # (AUTO) 2.7 10^3/uL (0.0-1.0); MONOCYTES % (AUTO) 16 % (0-12); NEUTROPHILS # (AUTO) 12.2 10^3/uL (1.8-7.8); NEUTROPHILS % (AUTO) 73 % (42-75); PLATELET COUNT 308 10^3/uL (130-400); WHITE BLOOD COUNT 16.7 10^3/uL (4.3-11.0)
[2022-04-15 06:21] LABS: ALBUMIN 3.3 GM/DL (3.2-4.5); POTASSIUM 3.7 MMOL/L (3.6-5.0)
[2022-04-15 06:22] LABS: CALCIUM 8.5 MG/DL (8.5-10.1)
[2022-04-15 06:24] LABS: TOTAL PROTEIN 6.8 GM/DL (6.4-8.2)
[2022-04-15 06:25] LABS: BILIRUBIN,TOTAL 0.9 MG/DL (0.1-1.0)
[2022-04-15 06:27] LABS: CREATININE SERUM 0.74 MG/DL (0.60-1.30)
[2022-04-15] MEDS ORDERED: RT--FLUTICASONE/SALMETEROL 232-14 (AIRDUO RespiCLICK) IH SCH (08:00)
[2022-04-15] MEDS: ASPIRIN E.C. 81 MG (ECOTRIN) TAB PO SCH (08:23)
[2022-04-15] MEDS: OMEGA 3 (FISH OIL) 1000 MG CAP PO SCH (08:23)
[2022-04-15] MEDS: SENNOSIDES 8.6 MG (SENOKOT) TAB PO SCH ×2 (08:24→21:02)
[2022-04-15] MEDS: DOCUSATE SODIUM 100 MG (COLACE) CAP PO SCH ×2 (08:24→21:02)
[2022-04-15] MEDS: ASCORBIC ACID (VIT C) 500 MG TABLET PO SCH (08:24)
[2022-04-15] MEDS: buPROPion SR 150 MG (WELLBUTRIN SR) TAB PO SCH (08:24)
[2022-04-15] MEDS: ACETAMINOPHEN 325 MG TABLET PO PRN ×3 (08:30→23:03)
[2022-04-15] MEDS ORDERED: FLUTICASONE/VILANTEROL 200 MCG 14'S (BREO) IH SCH (09:00)
[2022-04-15] MEDS ORDERED: NON-FORMULARY MEDICATION 1 EA EA (Bupropion HCl (Bupropion Xl) 150 MG) PO SCH (09:00)
[2022-04-15] MEDS ORDERED: NON-FORMULARY MEDICATION 1 EA EA (Ascorbate Calcium (Vitamin C) 500 MG) PO SCH (09:00)
[2022-04-15] MEDS ORDERED: LORATADINE (CLARITIN) 10 MG TAB PO NR (11:30)
[2022-04-15] MEDS: MONTELUKAST 10 MG (SINGULAIR) TAB PO SCH (11:40)
--- NOTE | 2022-04-15 16:02 | CONSULTATION REPORT ---
DATE OF SERVICE: 04/15/2022 ADMITTING PHYSICIAN: Dr. Kirkland. HISTORY OF PRESENT ILLNESS: The patient is a 56-year-old female who presented to the Emergency Department with a 3-day history of crampy abdominal pain as well as nausea and vomiting. She states that the pain was more on the right side of the abdomen. A CT scan was performed, which did show two significant sized lesions of the liver as well as a lesion of the transverse colon, highly suspicious for metastatic malignancy. She states that since she has been admitted, she has had bowel movements. She also does not report any known history of red blood per rectum nor any dark tarry stools. She also does not report any recent inadvertent weight loss. She does have a history of chronic lymphocytic leukemia; however, states that this has been in remissive state for a number of years. She has not had a colonoscopy done in the past. PAST MEDICAL HISTORY: COPD, hypertension, chronic urinary tract infection, history of chronic lymphocytic leukemia, anxiety. PAST SURGICAL HISTORY: Right breast biopsy, which was benign; tubal ligation. ALLERGIES: MORPHINE. MEDICATIONS: Albuterol MDI 90 mcg q.6 hours p.r.n., aspirin 81 mg daily, bupropion 150 mg daily, Breo Ellipta 200/25 mcg daily, hydrochlorothiazide 25 mg daily, hydroxyzine 25 mg daily. SOCIAL HISTORY: Positive smoke 40 pack years. Negative alcohol. FAMILY HISTORY: Mother, colon cancer. Brother, lung cancer. VITAL SIGNS: Temperature 37.2, blood pressure 126/60, pulse 86, respirations 18, pulse ox 94% on room air. REVIEW OF SYSTEMS: Well-nourished female currently in no acute distress. She is not experiencing any shortness of breath or difficulty breathing. No chest pain, palpitations, diaphoresis. She does not report any nausea or vomiting as well as no crampy abdominal pain. She states that she has had a bowel movement since admission, which were normal in consistency and color. No red blood per rectum, no dark tarry stools. No fever, chills, no recent inadvertent weight loss. All other review of systems negative. PHYSICAL EXAMINATION: CHEST: Scattered wheezes and distant breath sounds bilaterally. HEART: Regular, no murmurs. EXTREMITIES: No lower extremity edema, negative Homans sign. HEENT: No scleral icterus. NECK: No cervical lymphadenopathy. ABDOMEN: Soft, nondistended. There is mild discomfort in the mid abdominal region upon deep palpation, small umbilical hernia. SKIN: Warm, dry. LABORATORY DATA: WBC 16.7, hemoglobin 9.8, hematocrit 34, platelets 308. BUN 7, creatinine 0.74. Liver function enzymes normal. Urinalysis, leukocyte esterase 2 positive, few bacteria. ASSESSMENT AND PLAN: A 56-year-old female with a transverse colonic lesion as well as liver lesions, likely consistent with metastatic colon cancer. The patient is very specific about her treatment and states that she would like to have a diagnosis and would like to have a colonoscopy; however, would like to feel better before proceeding with the colonic prep. She does have a leukocytosis and does feel weak and is currently being treated for urinary tract infection. She also reports some psychosocial issues with anxiety as well as being homeless right now. She states that she was living in [place], [place]; however, moved back to this area where she is originally from. She states that if she is feeling better from a clinical standpoint, she will proceed with prep and colonoscopy on this admission. It was explained to her that this may represent a number of different things; however, if this does represent a malignancy, she is unsure of what she would like to do and wants to wait further after more definitive diagnosis before making these type of decisions as well. Job ID: [id number] DocumentID: [id number] Dictated Date: 04/15/2022 15:32:25 Portal Administrator Date: 04/15/2022 16:01:43 Dictated By: HELENE PORTER MD
[2022-04-15] MEDS: LORazepam 0.5 MG (ATIVAN) TABLET PO PRN (19:37)
--- NOTE | 2022-04-15 20:14 | Physician Query Clarification ---
Physician Query-General Query to Physician: The medical record reflects the following clinical evidence: Clinical Indicators: Smoking history with no documentation of home O2, reports being homeless, UTI with fevers up to 40 C on admission, Work up for cancer with possible liver mets Risk Factor(s): Nursing documentation of pursed lipped breathing, shortness of air at rest on admission respiratory rate 16-24, O2 sat on admission 91 on 4 L of oxygen O2 sats ranged from 93% to 100% on 3 to 4 L (Lowest P/F 62/.78=534), attempted to wean off O2 O2 sats dropped to 85% on room air (P/F 50/.74=780) was placed back on oxygen at 3 to 4 L Treatment: Supplemental 02 up to 4L for greater than 48 hours, IV Abx, DuoNebs, Breo Ellipta, 1. Acute respiratory failure, Present on admission, Improving 2. Other explanation of clinical findings 3. Unable to determine (no explanation for clinical findings) Please clarify and document your clinical opinion in the progress notes and discharge summary including the definitive and/or presumptive diagnosis, (suspected or probable), related to the above clinical findings. Please include clinical findings supporting your diagnosis. Karla Calzada MSN, RN Clinical Product Sales Representative [phone] [email or web address] PHYSICIAN RESPONSE: Based on the clinical findings in the record, please respond to the query above on this document as an addendum. Physician Response: Physician Response 1 If you have questions please contact: Branding Machine Tender: Ext: Thank you for your time and cooperation. Clinical Product Sales Representative/Branding Machine Tender This is a permanent part of the medical r ecord KARLA CALZADA Apr 15, 2022 20:14 PILI ORTIZ DO Apr 15, 2022 21:34
[2022-04-15] MEDS ORDERED: ADVAIR HFA 115/21 MCG INHALER 8 GM IH SCH (21:00)
[2022-04-16] MEDS: CEFEPIME INJECTION 1,000 MG in NS (IVPB) 50 ML IV SCH ×3 (01:10→13:18)
[2022-04-16 03:27] VITALS: BP 105/59
[2022-04-16] MEDS: ACETAMINOPHEN 325 MG TABLET PO PRN (05:55)
[2022-04-16] MEDS: LORazepam 0.5 MG (ATIVAN) TABLET PO PRN (05:55)
--- NOTE | 2022-04-16 06:05 | Progress Note - Hospitalist ---
Subjective HPI/CC On Admission Date Seen by Provider: Apr 16, 2022 Time Seen by Provider: 11:00 CC: Abdominal pain HPI: This is a 56 yr old female clinic pt of [facility]. She presented with abdominal pain and was found to have colon mass with liver metastasis and UTI. Currently she is very upset and wants to eat, but a colonoscopy needs to be done to obtain a biopsy. Then further management from that angle. She reports her mother had colon cancer too. Pt is very unrealistic. She still has nausea and vomiting, but still wants to eat food. Focused Exam Lactate Level 04/13/22 13:02: Lactic Acid Level 1.78 Objective Exam Vital Signs Vital Signs Date Time Temp Pulse Resp B/P (MAP) Pulse Ox O2 Delivery O2 Flow Rate FiO2 04/16/22 08:03 37.4 98 20 107/69 (82) 93 Room Air 04/16/22 08:00 4.00 Capillary Refill : Less Than 3 Seconds Results/Procedures Lab Laboratory Tests 04/16/22 05:00 Patient resulted labs reviewed. Assessment/Plan Assessment and Plan Assess & Plan/Chief Complaint Assessment: Abdominal pain UTI Bronchitis Colon mass with liver mets Wheezing Smoker Plan: Pain control IV abx Lung meds Dr Hudson for second opinion Diagnosis/Problems Diagnosis/Problems (1) Abdominal mass Status: Acute (2) UTI (urinary tract infection) Status: Acute (3) Leukocytosis Status: Acute (4) COPD (chronic obstructive pulmonary disease) Status: Acute Clinical Quality Measures DVT/VTE Risk/Contraindication: Contraindications-Pharm: Other *list below* Other: surgery PILI ORTIZ DO Apr 16, 2022 06:05
[2022-04-16 06:26] LABS: BASOPHILS # (AUTO) 0.1 10^3/uL (0.0-0.1); BASOPHILS % (AUTO) 0 % (0-10); EOSINOPHILS # (AUTO) 0.4 10^3/uL (0.0-0.3); EOSINOPHILS % (AUTO) 3 % (0-10); HEMATOCRIT 30 % (35-52); LYMPHOCYTES # (AUTO) 1.9 10^3/uL (1.0-4.0); LYMPHOCYTES % (AUTO) 16 % (12-44); MEAN CORPUSCULAR HEMOGLOBIN 22 pg (25-34); MEAN CORPUSCULAR HGB CONC 30 g/dL (32-36); MEAN CORPUSCULAR VOLUME 71 fL (80-99); MEAN PLATELET VOLUME 10.8 fL (9.0-12.2); MONOCYTES # (AUTO) 2.1 10^3/uL (0.0-1.0); MONOCYTES % (AUTO) 18 % (0-12); NEUTROPHILS # (AUTO) 7.5 10^3/uL (1.8-7.8); NEUTROPHILS % (AUTO) 63 % (42-75); PLATELET COUNT 305 10^3/uL (130-400)
[2022-04-16 06:30] LABS: POTASSIUM 3.3 MMOL/L (3.6-5.0)
[2022-04-16 06:32] LABS: CALCIUM 8.6 MG/DL (8.5-10.1)
[2022-04-16 06:33] LABS: TOTAL PROTEIN 6.2 GM/DL (6.4-8.2)
[2022-04-16 06:35] LABS: BILIRUBIN,TOTAL 0.4 MG/DL (0.1-1.0)
[2022-04-16 06:36] LABS: CREATININE SERUM 0.74 MG/DL (0.60-1.30)
[2022-04-16] MEDS: MONTELUKAST 10 MG (SINGULAIR) TAB PO SCH (07:49)
[2022-04-16] MEDS: buPROPion SR 150 MG (WELLBUTRIN SR) TAB PO SCH (07:49)
[2022-04-16] MEDS: ASPIRIN E.C. 81 MG (ECOTRIN) TAB PO SCH (07:49)
[2022-04-16] MEDS: OMEGA 3 (FISH OIL) 1000 MG CAP PO SCH (07:50)
[2022-04-16] MEDS: SENNOSIDES 8.6 MG (SENOKOT) TAB PO SCH (07:50)
[2022-04-16] MEDS: ASCORBIC ACID (VIT C) 500 MG TABLET PO SCH (07:50)
[2022-04-16] MEDS: DOCUSATE SODIUM 100 MG (COLACE) CAP PO SCH (07:50)
[2022-04-16] MEDS: hydrOXYzine (VISTARIL/ATARAX) 25 MG capsule/tablet PO PRN (07:53)
[2022-04-16 08:03] VITALS: BP 107/69
[2022-04-16] MEDS ORDERED: LORATADINE (CLARITIN) 10 MG TAB PO SCH (09:00)
[2022-04-16] MEDS ORDERED: MONT-40 PO (11:17)
[2022-04-16] MEDS ORDERED: ACHD5005 PO (11:17)
[2022-04-16] MEDS ORDERED: LORA10TA7 PO (11:17)
[2022-04-16] MEDS ORDERED: ALBU18HF2 INH (11:17)
[2022-04-16] MEDS ORDERED: CEFD300C3 PO (11:17)
[2022-04-16] MEDS ORDERED: ONDA4TAB11 PO (11:17)
[2022-04-16] MEDS ORDERED: HYDR-3584 PO (11:19)
--- NOTE | 2022-04-16 11:19 | Discharge Summary ---
Discharge Summary Hospital Course Was the Problem List Reviewed?: Yes Problems/Dx: (1) Abdominal mass Status: Acute (2) UTI (urinary tract infection) Status: Acute (3) Leukocytosis Status: Acute (4) COPD (chronic obstructive pulmonary disease) Status: Acute Hospital Course Date of Admission: Apr 13, 2022 at 15:31 Admission Diagnosis : Family Physician/Provider: No,Local Physician Date of Discharge: 04/16/22 Discharge Diagnosis: [ ] Hospital Course: Pt had an uneventful 4 day hospital course after she was admitted for abdominal pain. UTI and acute exacerbation of COPD with wheezing. Colon mass with metasta sis diagnosed. Dr. West evaluated her. She wanted a second opinion. She will have follow-up with Dr. Hudson for outpatient colonoscopy. She will complete Omnicef. Singulair and Claritin were sent into the pharmacy. Labs and Pending Lab Test: Laboratory Tests 04/16/22 05:00: White Blood Count 12.0H, Red Blood Count 4.16, Hemoglobin 9.0L, Hematocrit 30L, Mean Corpuscular Volume 71L, Mean Corpuscular Hemoglobin 22L, Mean Corpuscular Hemoglobin Concent 30L, Red Cell Distribution Width 16.1H, Platelet Count 305, Mean Platelet Volume 10.8, Immature Granulocyte % (Auto) 0, Neutrophils (%) (Auto) 63, Lymphocytes (%) (Auto) 16, Monocytes (%) (Auto) 18H, Eosinophils (%) (Auto) 3, Basophils (%) (Auto) 0, Neutrophils # (Auto) 7.5, Lymphocytes # (Auto) 1.9, Monocytes # (Auto) 2.1H, Eosinophils # (Auto) 0.4H, Basophils # (Auto) 0.1, Immature Granulocyte # (Auto) 0.1, Sodium Level 137, Potassium Level 3.3L, Chloride Level 100, Carbon Dioxide Level 29, Anion Gap 8, Blood Urea Nitrogen 10, Creatinine 0.74, Estimat Glomerular Filtration Rate 96, BUN/Creatinine Ratio 14, Glucose Level 105, Calcium Level 8.6, Corrected Calcium 9.4, Total Bilirubin 0.4, Aspartate Amino Transf (AST/SGOT) 17, Alanine Aminotransferase (ALT/SGPT) 13, Alkaline Phosphatase 104, Total Protein 6.2L, Albumin 3.0L Microbiology 04/13/22 Blood Culture - Preliminary, Resulted No growth Home Meds Active Hydrocodone-Acetamin 5-325 mg (Hydrocodone/Acetaminophen) 5 Mg-325 Mg Tablet 1 Tab PO BID PRN Cefdinir 300 Mg Capsule 300 Mg PO BID Ondansetron Odt (Ondansetron) 4 Mg Tab.rapdis 4 Mg PO Q6H PRN Montelukast Sodium 10 Mg Tablet 10 Mg PO DAILY@0800 Loratadine 10 Mg Tablet 10 Mg PO DAILY Ventolin Hfa (Albuterol Sulfate) 90 Mcg Hfa.aer.ad 2 Puff INH Q6H PRN Reported Vitamin C (Ascorbate Calcium) 500 Mg Tablet 500 Mg PO DAILY Aspirin EC (Aspirin) 81 Mg Tablet.dr 81 Mg PO DAILY Fish Oil 1,000 mg Softgel ([place]-3/Dha/Epa/Fish Oil) 1,000 Mg (120 Mg-180 Mg) Capsule 1,000 Mg PO DAILY Breo Ellipta 200-25 Mcg INH (Fluticasone/Vilanterol) 200 Mcg-25 Mcg/Dose Blst.w.dev 1 Puff INH DAILY Bupropion Xl (Bupropion HCl) 150 Mg Tab.er.24h 150 Mg PO DAILY Hydrochlorothiazide 25 Mg Tablet 25 Mg PO DAILY Diazepam 10 Mg Tablet 10 Mg PO DAILY PRN Hydroxyzine HCl 25 Mg Tablet 25 Mg PO Q8H PRN Ibuprofen 800 Mg Tablet 800 Mg PO TID PRN Assessment/Pt Instructions 1 week pcp Discharge Planning: <30 minutes discharge planning Discharge Instructions Discharge Diet: No Restrictions Discharge Physical Examination Vital Signs Vital Signs Date Time Temp Pulse Resp B/P (MAP) Pulse Ox O2 Delivery O2 Flow Rate FiO2 04/16/22 08:03 37.4 98 20 107/69 (82) 93 Room Air 04/16/22 08:00 4.00 General Appearance: No Apparent Distress, WD/WN Respiratory: No Accessory Muscle Use, No Respiratory Distress, Wheezing Allergies: Coded Allergies: alcohol (Verified Allergy, Unknown, Hives, 04/13/22) morphine (Verified Allergy, Unknown, Hives, 04/13/22) Discharge Summary Date of Admission Apr 13, 2022 at 15:31 Date of Discharge Discharge Date: Apr 16, 2022 Admission Diagnosis Assessment: Abdominal pain UTI Colon mass with liver mets Smoker Plan: Pain control IV abx Discharge Diagnosis Assessment: Abdominal pain UTI Bronchitis Colon mass with liver mets Wheezing Smoker Plan: Pain control IV abx Lung meds Dr Hudson for second opinion (1) Abdominal mass Status: Acute (2) UTI (urinary tract infection) Status: Acute (3) Leukocytosis Status: Acute (4) COPD (chronic obstructive pulmonary disease) Status: Acute Clinical Quality Measures DVT/VTE Risk/Contraindication: Contraindications-Pharm: Other *list below* Other: surgery PILI ORTIZ DO Apr 16, 2022 11:18
[2022-04-16 11:37] VITALS: BP 102/60
[2022-04-16] MEDS ORDERED: FLUTICASONE/VILANTEROL 100 MCG 14'S (BREO) IH SCH (12:00)
== END 2022-04-16 15:30 | disposition home or self-care (01) | DRG 689 ==
LOC: EDUNIT# 11:39 → ER 11:41 → 4TH 15:31
PROVIDERS: ADMIT Internal Medicine; ATTEND Internal Medicine
PROC: 5A0935A Assistance with Respiratory Ventilation, Less than 24 Consecutive Hours, High Flow/Velocity Cannula (ICD-10-PCS; principal; 2022-04-13)
DX: N39.0 Urinary tract infection, site not specified (principal); J96.00 Acute respiratory failure, unspecified whether with hypoxia or hypercapnia; C18.9 Malignant neoplasm of colon, unspecified; J44.1 Chronic obstructive pulmonary disease with (acute) exacerbation; C78.7 Secondary malignant neoplasm of liver and intrahepatic bile duct; F17.210 Nicotine dependence, cigarettes, uncomplicated; D72.829 Elevated white blood cell count, unspecified; Z85.6 Personal history of leukemia; I10 Essential (primary) hypertension; F41.9 Anxiety disorder, unspecified; Z80.0 Family history of malignant neoplasm of digestive organs; Z86.73 Personal history of transient ischemic attack (TIA), and cerebral infarction without residual deficits
CPT/HCPCS: 36415; 71045; 74177; 80053; 80306; 81000; 83605; 85007; 85025; 85027; 85610; 85730; 86141; 87040; 94640; 94760; 96361; 96365; 96366; 96375

== ENCOUNTER 2022-05-05 06:24 | Outpatient (CLI) | payer MEDICARE, MEDICAID ==
[~2022-05-05] VITALS: Ht 154.9 cm; Wt 61.2 kg
[~2022-05-05 06:24] MED LIST: ACHD5005 PO; ALBU18HF2 INH; ASCO-262 PO; ASPI-1238 PO; BUPR150T24 PO; CEFD300C3 PO; DIAZ10TA3 PO; FLUT1BLS INH; HYDR-3584 PO; HYDR-700 PO; HYDR25TA4 PO; IBUP-1780 PO; LORA10TA7 PO; MONT-40 PO; OMEG100032 PO; ONDA4TAB11 PO
[2022-05-07] MEDS ORDERED: HYDR-3817 PO (11:56)
== END 2022-05-05 08:41 | disposition home or self-care (01) ==
LOC: PREOP 06:24
PROVIDERS: ATTEND Surgery
DX: Z01.818 Encounter for other preprocedural examination (principal)

== ENCOUNTER 2022-05-07 09:42 | Day surgery (SDC) | payer MEDICARE, MEDICAID ==
[2022-05-07] VITALS (7 sets, daily range): BP systolic 79–127; BP diastolic 44–84
[~2022-05-07] VITALS: Ht 154.9 cm; Wt 61.2 kg
[2022-05-07] MEDS ORDERED: LACTATED RINGERS 1,000 ML IV STA (09:45)
[2022-05-07] MEDS ORDERED: LIDOCAINE JELLY 2% 6 ML SYRINGE MM PRN (09:45)
[2022-05-07] MEDS ORDERED: MIDAZOLAM 2 MG/2 ML (VERSED) VIAL ONE (10:45)
[2022-05-07] MEDS ORDERED: PROPOFOL INJECTION 50 ML IV ONE ×2 (10:45→11:13)
--- NOTE | 2022-05-07 11:40 | Anesthesia-General Post-Op ---
MAC Patient Condition Mental Status/LOC: Same as Preop Cardiovascular: Satisfactory Nausea/Vomiting: Absent Respiratory: Satisfactory Pain: Controlled Complications: Absent Post Op Complications Complications None Follow Up Care/Instructions Patient Instructions None needed. Anesthesiology Discharge Order Discharge Order Patient is doing well, no complaints, stable vital signs, no apparent adverse anesthesia problems. No complications reported per nursing. MT ORR CRNA May 07, 2022 11:40
--- NOTE | 2022-05-07 11:55 | Progress Note-Pre Operative ---
Pre-Operative Progress Note H&P Reviewed The H&P was reviewed, patient examined and no changes noted. Date Seen by Provider: May 07, 2022 Time Seen by Provider: 10:00 Date H&P Reviewed: May 07, 2022 Time H&P Reviewed: 10:00 Pre-Operative Diagnosis: colon and liver mass HELENE PORTER MD May 07, 2022 11:55
[2022-05-07] MEDS ORDERED: HYDR-3817 PO (11:56)
--- NOTE | 2022-05-07 11:57 | Discharge Inst-Surgical ---
D/C Lap Instructions-KIDO New, Converted, or Re-Newed RX: RX on Chart Follow Up Appt in 1 week Activity as tolerated High Fiber Diet 25g or more per day Avoid Alcohol, Caffeine, Spicy [place] and Acid foods. Drink 64 fluid oz or more of fluids per day. Symptoms to Report: Fever over 101 degree F, Nausea/Vomiting If any problems/questions: Contact your physician or go to Emergency Room HELENE PORTER MD May 07, 2022 11:57
[2022-05-07] MEDS ORDERED: ONDANSETRON 4 MG (ZOFRAN) ORAL DISSOLVE TAB PO PRN (12:00)
[2022-05-07] MEDS ORDERED: ONDANSETRON 4 MG/2 ML (SDV) Z0FRAN IVP PRN (12:00)
[2022-05-07] MEDS ORDERED: fentaNYL INJ 100 MCG/2 ML AMP ONE (12:00)
[2022-05-07] MEDS ORDERED: fentaNYL INJ 100 MCG/2 ML AMP IVP ONE (12:15)
[2022-05-07] MEDS ORDERED: fentaNYL INJ 100 MCG/2 ML AMP IVP PRN (12:15)
[2022-05-07] MEDS ORDERED: HYDROcodone/APAP 7.5 MG/325 MG (LORTAB, LORCET PLUS) TABLET PO PRN (12:15)
--- NOTE | 2022-05-07 22:02 | OPERATIVE REPORT ---
DATE OF SERVICE: 05/07/2022 PREOPERATIVE DIAGNOSES: Transverse colonic mass with liver lesions. POSTOPERATIVE DIAGNOSES: Circumferential transverse colonic mass, likely consistent with a neoplasm. Mild sigmoid diverticulosis. PROCEDURE: Colonoscopy with biopsy and submucosal injection. SURGEON: Helene Porter MD ANESTHESIA: Monitored anesthesia care. ESTIMATED BLOOD LOSS: Minimal. FINDINGS: Circumferential transverse colonic mass, likely consistent with a neoplasm. Mild sigmoid diverticulosis. DISPOSITION: The patient tolerated the procedure well. INDICATIONS: The patient is a 56-year-old female who presented to the Emergency Department approximately 3 weeks ago with 5-day history of crampy abdominal pain with associated nausea and vomiting. Pain was more in the right side of the abdomen. A CT scan was performed, which showed two significant lesions of the liver as well as a lesion of the transverse colon, which was highly suspicious for metastatic malignancy. She does not report any red blood per rectum nor any dark tarry stools. She also does not report any recent inadvertent weight loss. She does have a history of chronic lymphocytic leukemia; however, this has been in a remissive state. She does report a family history of colon cancer with her mother having the disease. DESCRIPTION OF PROCEDURE: The patient was brought to the endoscopy suite, laid in the left lateral decubitus position. After adequate IV pain and sedative medications and monitored anesthesia care, a digital rectal examination was performed. Chronic stage II external and internal hemorrhoids were identified, which were not actively edematous nor inflamed and no bleeding. Normal sphincter tone was felt and there were no palpable masses. The endoscope was then intubated to the anus and rectum gently insufflated. The endoscope was then advanced through the valves of Law of the rectum with no polyps or any neoplasms identified. Through the sigmoid colon, mild sigmoid diverticulosis identified. The endoscope was then advanced through the descending colon to the transverse colon and what was approximately the mid to proximal transverse colon. A circumferential neoplastic lesion identified. This was biopsied several times with visualization of good hemostasis. We then proceeded with submucosal injection of black ink for identification. The endoscope was then advanced through the neoplasm to the remainder of the transverse colon and through the ascending colon to the cecum, which appeared normal. No other lesions identified. The endoscope was then slowly withdrawn while taking a second look and suctioning of residual air with no additional findings. The patient tolerated the procedure well. We will await the biopsy results; however, due to the nature of the lesion, this will likely need to be excised, which would encompass a right hemicolectomy. Job ID: [id number] DocumentID: [id number] Dictated Date: 05/07/2022 11:43:52 Head Orthopedic Team Physician Date: 05/07/2022 22:01:54 Dictated By: HELENE PORTER MD
== END 2022-05-07 13:25 | disposition home or self-care (01) ==
LOC: ENDO 09:42
PROVIDERS: ATTEND Surgery
DX: C18.4 Malignant neoplasm of transverse colon (principal); K57.30 Diverticulosis of large intestine without perforation or abscess without bleeding; Z80.0 Family history of malignant neoplasm of digestive organs

== ENCOUNTER 2022-06-17 05:42 | Outpatient (CLI) | payer MEDICARE, MEDICAID ==
[~2022-06-17] VITALS: Ht 154.9 cm; Wt 61.2 kg
[~2022-06-17 05:42] MED LIST changes: +HYDR-3817 PO
[2022-06-17] MEDS ORDERED: CLON0.5T PO (10:22)
== END 2022-06-17 12:11 | disposition home or self-care (01) ==
LOC: PREOP 05:42
PROVIDERS: ATTEND Surgery
DX: Z01.818 Encounter for other preprocedural examination (principal)

== ENCOUNTER 2022-06-24 09:00 | Inpatient (IN) | payer MEDICARE, MEDICAID ==
--- NOTE | 2022-06-18 06:38 | HISTORY AND PHYSICAL ---
DATE OF SERVICE: DATE OF ADMISSION: 06/24/2022. HISTORY OF PRESENT ILLNESS: The patient is a 56-year-old female, who presented to the Emergency Department on 04/13/2022 with a 3-day history of crampy abdominal pain and nausea and vomiting. She had reported that the pain was more on the right side of her abdomen. A CT scan was performed, which did show two significant sized lesions of the liver as well as a lesion of the transverse colon, highly suspicious for metastatic malignancy. During that admission, it was recommended that she proceed with a colonoscopy; however, was initially resistant. She was then seen in the office several times and she did agree to have a colonoscopy, which was performed on 05/07/2022, found to have a circumferential transverse colonic mass, which was biopsied and submucosally marked. 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 It was recommended that she proceed with a right hemicolectomy. However, again, was resistant to this and needed time to think about it. She was seen in the office today and states that she continues to have right sided crampy abdominal pain and would like to proceed with a right hemicolectomy, which we will schedule. Again, it was explained to her that the lesions of the liver are likely consistent with metastatic disease and she will need further testing and evaluation as well as therapies as needed, which she again wants to take in different stages. PAST MEDICAL HISTORY: COPD, hypertension, chronic urinary tract infection, history of chronic lymphocytic leukemia, anxiety, and history of stroke in 2006. PAST SURGICAL HISTORY: Right breast biopsy, which was benign and tubal ligation. ALLERGIES: MORPHINE. MEDICATIONS: Albuterol 90 mcg 6 hours p.r.n., aspirin 81 mg daily, bupropion 150 mg daily, Breo Ellipta 200/25 mcg daily, hydrochlorothiazide 25 mg daily, and hydroxyzine 25 mg daily. SOCIAL HISTORY: Positive for smoke 40 pack years. Negative alcohol. FAMILY HISTORY: Mother, colon cancer. Brother, lung cancer. REVIEW OF SYSTEMS: A well-nourished female currently in no acute distress. She is not experiencing any shortness of breath or difficulty in breathing. No chest pain, palpitations, diaphoresis. No nausea, vomiting; however, has had worsening abdominal distention as well as worsening gastroesophageal reflux. She also does have intermittent episodes of crampy right-sided abdominal pain; however, is having loose bowel movements. She does not report any red blood per rectum nor any dark tarry stools. No fever, chills and states that she has lost some weight in the past several weeks. PHYSICAL EXAMINATION: VITAL SIGNS: Blood pressure is 156/88, pulse 86, respirations 18, and pulse ox 94% on room air. Current height 5 feet 1 inch at 141.8 pounds. CHEST: Few scattered rales and distant breath sounds bilaterally. HEART: Regular and no murmurs. EXTREMITIES: No lower extremity edema and negative Homans sign. HEENT: No scleral icterus. NECK: No cervical lymphadenopathy. ABDOMEN: Soft and nondistended. There is pain in the right side of the abdomen. There are no palpable masses. SKIN: Warm and dry. 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 The natural history of this disease process was explained the patient and that the first line therapy would be removal of the lesion due to the fact that leaving it alone and obstruction is not compatable with life. She is in understanding of this and would like to proceed with a right hemicolectomy, which we will schedule. She also does not want any further intervention at this time; however, states that once this initial right hemicolectomy has been done, she would like to take things in different stages and would then agree to get further evaluation of the liver masses and proper diagnoses and therapeutics as indicated. Job ID: [id number] DocumentID: [id number] Dictated Date: 06/08/2022 17:02:48 Manager School Date: 06/08/2022 17:17:05 Dictated By: HELENE PORTER MD [facility]ITALCasim[facility]
[~2022-06-24] VITALS: Ht 154.9 cm; Wt 61.2 kg
[2022-06-24] VITALS (11 sets, daily range): BP systolic 136–172; BP diastolic 74–97
[~2022-06-24 09:00] MED LIST changes: +CLON0.5T PO
--- NOTE | 2022-06-24 09:24 | Progress Note-Pre Operative ---
Pre-Operative Progress Note Date H&P Reviewed: Jun 24, 2022 Time H&P Reviewed: 09:20 History & Physical: H&P Reviewed, Patient Examed, No changes noted Pre-Operative Diagnosis: Colon Cancer ESE PAEZ APRN Jun 24, 2022 09:24
[2022-06-24] MEDS ORDERED: BUP/EPI 0.5% 1:200,000 (MARCAINE) 10ML VIAL IJ ONE (09:26)
[2022-06-24] MEDS ORDERED: ONDANSETRON 4 MG (ZOFRAN) ORAL DISSOLVE TAB PO STA (09:28)
[2022-06-24] MEDS ORDERED: metroNIDAZOLE 500MG/100ML IVPB 100 ML IV ONE (09:30)
[2022-06-24] MEDS ORDERED: ceFAZolin INJECTION 2,000 MG in NS (IVPB) 50 ML IV ONE (09:30)
[2022-06-24] MEDS: LACTATED RINGERS 1,000 ML IV PRN ×3 (09:40→12:35)
[2022-06-24] MEDS ORDERED: MIDAZOLAM 2 MG/2 ML (VERSED) VIAL IV ONE (09:45)
[2022-06-24] MEDS ORDERED: ONDANSETRON 4 MG/2 ML (SDV) Z0FRAN IV ONE (09:45)
[2022-06-24] MEDS ORDERED: LACTATED RINGERS 1,000 ML IV PRN (09:45)
[2022-06-24] MEDS ORDERED: MIDAZOLAM 2 MG/2 ML (VERSED) VIAL ONE ×2 (09:49→10:18)
[2022-06-24] MEDS ORDERED: SCOPOLAMINE 1.5 MG (TRANSDERM-SCOP) PATCH ONE (09:50)
[2022-06-24] MEDS ORDERED: SCOPOLAMINE 1.5 MG (TRANSDERM-SCOP) PATCH TOP ONE (10:00)
[2022-06-24] MEDS ORDERED: ONDANSETRON 4 MG/2 ML (SDV) Z0FRAN ONE (10:17)
[2022-06-24] MEDS ORDERED: GLYCOPYRROLATE 0.2 MG/ML (ROBINUL) 2 ML VIAL ONE ×3 (10:17→13:23)
[2022-06-24] MEDS ORDERED: LIDOCAINE PF 2% 5 ML (XYLOCAINE) VIAL ONE (10:17)
[2022-06-24] MEDS ORDERED: fentaNYL INJ 100 MCG/2 ML AMP ONE ×2 (10:17→13:41)
[2022-06-24] MEDS ORDERED: ROCURONIUM 10 MG/ML 5 ML SYRINGE IV ONE ×2 (10:17→13:13)
[2022-06-24] MEDS ORDERED: proPOfol 200 MG/20 ML (DIPRIVAN) VIAL IV ONE (10:17)
[2022-06-24] MEDS ORDERED: diphenhydrAMINE 50 MG/ML INJ (BENADRYL) IV PRN (11:00)
[2022-06-24] MEDS ORDERED: NALOXONE 0.4 MG/ML 1 ML (NARCAN) VIAL IV PRN (11:00)
[2022-06-24] MEDS ORDERED: NS IV 1000 ML 1,000 ML IV SCH (11:00)
[2022-06-24] MEDS ORDERED: fentaNYL INJ 1,000 MCG in NS (IVPB) 80 ML IV PRN (11:00)
[2022-06-24] MEDS ORDERED: BUP/EPI 0.5% 1:200,000 (SENSORCAINE) 30 ML VIAL INJ ONE (11:30)
[2022-06-24] MEDS ORDERED: PHENYLEPHRINE 100 MCG/ML 10 ML (ANESTHESIA) SYR ONE (12:11)
[2022-06-24] MEDS ORDERED: NEOSTIGMINE (BLOXIVERZ ) 1 MG/1ML 10 ML VIAL ONE (13:13)
[2022-06-24] MEDS ORDERED: SEVOFLURANE (ULTANE) 15 ML INHAL SOLN ONE (13:26)
[2022-06-24] MEDS ORDERED: fentaNYL INJ 100 MCG/2 ML AMP IVP ONE (13:45)
[2022-06-24] MEDS ORDERED: PROMETHAZINE INJ 25 MG/ML (PHENERGAN) AMP IVP ONE (13:45)
[2022-06-24] MEDS ORDERED: ONDANSETRON 4 MG/2 ML (SDV) Z0FRAN IVP PRN (13:45)
[2022-06-24] MEDS ORDERED: HYDROmorphone 2 MG/ML VIAL (DILAUDID) IV ONE (13:45)
--- NOTE | 2022-06-24 13:45 | Anesthesia-General Post-Op ---
General Patient Condition Mental Status/LOC: Same as Preop Cardiovascular: Satisfactory Nausea/Vomiting: Absent Respiratory: Satisfactory Pain: Controlled Complications: Absent Post Op Complications Complications None Follow Up Care/Instructions Patient Instructions None needed. Anesthesia/Patient Condition Patient Condition Patient is doing well, no complaints, stable vital signs, no apparent adverse anesthesia problems. No complications reported per nursing. KENAN CALZADA CRNA Jun 24, 2022 13:45
[2022-06-24] MEDS ORDERED: PROMETHAZINE INJ 25 MG/ML (PHENERGAN) AMP ONE (13:56)
[2022-06-24] MEDS ORDERED: HYDROmorphone 2 MG/ML VIAL (DILAUDID) ONE (13:56)
[2022-06-24] MEDS ORDERED: RT-ALBUTEROL SULF 2.5 MG/3 ML PRE-MIX VIAL INH SCH ×2 (14:00→22:00)
--- NOTE | 2022-06-24 14:07 | Diagnostic Imaging Report ---
Indication: Central line placement Frontal chest obtained at 0204 p.m. COMPARISON: 04/13/2022 Heart is normal in size. Mediastinal silhouette is unremarkable. There is mild central vascular prominence. There is no focal infiltrate or pneumothorax or pleural fluid. There is a new left-sided central venous catheter tip overlying the upper SVC. IMPRESSION: New central venous catheter in place tip overlying upper SVC. No pneumothorax or pleural fluid. Mild central vascular prominence. Dictated by: Dictated on workstation # [id number]
[2022-06-24] MEDS ORDERED: RT-ALBUTEROL SULF 2.5 MG/3 ML PRE-MIX VIAL ONE (14:27)
--- NOTE | 2022-06-24 14:52 | Progress Note-Post Operative ---
Post-Operative Progess Note Surgeon (s)/[employer] (s) Surgeon HELENE PORTER MD [employer]: laura schumacher PROPULSION ENGINEER Pre-Operative Diagnosis Colon Cancer Post-Operative Diagnosis same Procedure & Operative Findings Date of Procedure 06/24/22 Procedure Performed/Findings lt sc central line. laparoscopic tranverse colectomy Anesthesia Type get Estimated Blood Loss Estimated blood loss (mL): minimal Specimens/Packing Specimens Removed transverse colon HELENE PORTER MD Jun 24, 2022 14:52
[2022-06-24] MEDS ORDERED: RT-ALBUTEROL SULF 2.5 MG/3 ML PRE-MIX VIAL INH ONE ×2 (15:00→15:15)
[2022-06-24] MEDS: 1/2 NS W/KCL 20 MEQ/L 1,000 ML IV SCH ×3 (15:28→21:58)
[2022-06-24] MEDS: ONDANSETRON 4 MG/2 ML (SDV) Z0FRAN IVP SCH ×3 (17:01→23:47)
[2022-06-24] MEDS: diphenhydrAMINE 50 MG/ML INJ (BENADRYL) IVP PRN ×2 (17:16→23:47)
[2022-06-24] MEDS: metroNIDAZOLE 500MG/100ML IVPB 100 ML IV SCH (18:12)
[2022-06-24] MEDS: ceFAZolin INJECTION 2,000 MG in NS (IVPB) 50 ML IV SCH (18:12)
[2022-06-24] MEDS: LORazepam ORAL CONCENTRATE 2 MG/ML 30 ML (ATIVAN) SL PRN (18:32)
[2022-06-24] MEDS: RT-ALBUTEROL HFA 8.5 GM INHALER IH SCH (19:48)
[2022-06-24] MEDS: ENOXAPARIN INJECTION 30 MG/0.3 ML SYR SC SCH (20:41)
--- NOTE | 2022-06-24 21:48 | OPERATIVE REPORT ---
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 POSTOPERATIVE DIAGNOSIS: Near obstructing metastatic transverse colon cancer. No carcinomatosis. PROCEDURES: Diagnostic laparoscopy, laparoscopic transverse colectomy with takedown of the splenic flexure, placement of left subclavian central venous catheter. SURGEON: Helene Porter MD. INFORMATION TECHNOLOGY AUDITOR: Vahid Hicks APRN. ANESTHESIA: General endotracheal. ESTIMATED BLOOD LOSS: Minimal. FINDINGS: The mass was identified by submucosal injection of black ink and colonoscopy, which was just left of midline of the transverse colon. No carcinomatosis. No visible lesions of the liver. DISPOSITION: The patient tolerated the procedure well. INDICATIONS: The patient is a 57-year-old female who presented to the Emergency Department on 04/13/2022 with a 3-day history of crampy abdominal pain, nausea and vomiting. She stated that she had been having these symptoms for quite some time. A CT scan was performed, which did show two significant size lesions of the liver as well as a lesion of the transverse colon, highly suspicious for metastatic malignancy. During that admission, it was recommended that she proceed with colonoscopy; however, she initially was resistant. She was seen in the office several times and then did eventually agree to have a colonoscopy, which was performed on 05/07/2022 and she was found to have a circumferential transverse colonic mass, which was biopsied and submucosally marked and came back as an adenocarcinoma with no DNA mismatch repair gene that would indicate a Bhakta syndrome. It was recommended that she proceed with a colectomy and again she was resistant and needed time to think about it. She continued to have crampy abdominal pain, which worsened as well and again it was explained to her the reason why she was having her symptoms as well as the lesions of the liver, likely indicating metastatic disease. She ultimately agreed to proceed with a partial colectomy to relieve the obstruction as well as eventual further therapy, which would likely include biopsies of the liver and a referral to oncology for other potential therapies, which again she wanted to take in stages. DESCRIPTION OF PROCEDURE: The patient was brought to the operating room, laid supine on the table. After adequate IV pain and sedative medications and general endotracheal intubation, the chest and neck were prepped and draped in standard surgical fashion. The left subclavian vein was then cannulated with drawing of venous blood. The guidewire was then inserted without any resistance. The cannulating needle removed, and a skin incision made using 11-blade. A tract was then created using a venous dilator and through this opening, a triple lumen central venous catheter was placed. The guidewire was removed, and all three ports sesar venous blood and saline pushed in without any resistance. Catheter was then sutured to the skin using interrupted 3-0 silk sutures, cleaned and covered with Op-Site. The patient was then placed in modified lithotomy position and the abdomen prepped and draped in standard surgical fashion. A 0.5% Marcaine with epinephrine was used to anesthetize the left upper abdominal quadrant and a transverse skin incision made using a 15 blade. An 0 silk suture was applied to the medial aspect incision for retraction and a Veress needle inserted with a low opening pressure of 0 mmHg and the abdomen was then insufflated to 15 mmHg pressure. The Veress needle removed, and a 5 mm XL trocar placed followed by a 5 mm 45-degree angle laparoscope visualizing the peritoneal cavity. A 4-quadrant abdominal exploration was performed. There was no peritoneal carcinomatosis. There are no obvious liver lesions identified. The lesion of the transverse colon was identified by the previous colonoscopy and submucosal injection of black ink, which was just left of midline. It was decided to do a transverse colectomy and anastomosis due to the fact that this was mostly a palliative procedure. A supraumbilical 10 mm port was then placed under direct visualization after the skin and peritoneal lining were anesthetized using 0.5% Marcaine with epinephrine and a transverse skin incision made using a 15 blade. In a similar manner, two right lateral abdominal 5 mm ports were placed. The patient was then placed in a Trendelenburg position. The omentum was retracted anteriorly, and a lesion identified. We then proceeded with medial to lateral dissection of the mesentery using the Sonicision. We then proceeded with opening of the gastrocolic ligament using the Sonicision and the gastrocolic mesocolon was dissected as well. To get adequate length, we did take down the splenic flexure to do our anastomosis and to get 10 cm of margins proximally and distally. This was done using the Sonicision with visualization of good hemostasis. The 10 mm supraumbilical port site was then extended laterally using a 15 blade and the fascia opened using electrocautery. The mass was then eviscerated out of the abdomen and we proceeded with stapling and transection of the mass, leaving 10 cm margins using a RONNA-75 mm stapler with blue loads. We then proceeded with [id number] anastomosis with the same stapler. The open end was then reapproximated using 3-0 silk sutures and the staple together with the same stapler. Good hemostasis was observed. A 19-[place] drain was then placed next to the anastomosis and pulled through the left upper abdominal quadrant 5 mm port and sutured to the skin using 3-0 nylon suture. The fascia and peritoneum to the supraumbilical incision was then closed using #1 looped PDS suture. All skin incisions were then closed with 4-0 Monocryl running subcuticular sutures. Wounds were then cleaned and covered with Dermabond. The patient tolerated the procedure well. We will admit her and await bowel function. We will proceed with pain control with TAR DISTILLATION SUPERVISOR pump. We will also proceed with DVT prophylaxis with early ambulation and calf SCDs as well as Lovenox injections. When she does have some bowel function, we will start clear liquid diet and advance as tolerated. She also does have a history of COPD and we will proceed with incentive spirometer as well as breathing treatments q.8 hours. Job ID: [id number] DocumentID: [id number] Dictated Date: 06/24/2022 16:23:24 Pe Manager Date: 06/24/2022 21:47:45 Dictated By: HELENE PORTER MD [facility]
[2022-06-25] VITALS (7 sets, daily range): BP systolic 130–155; BP diastolic 70–86
[2022-06-25] MEDS: LORazepam ORAL CONCENTRATE 2 MG/ML 30 ML (ATIVAN) SL PRN (01:21)
[2022-06-25] MEDS: HALOPERIDOL 5 MG/ML (HALDOL) VIAL IM PRN (02:19)
[2022-06-25] MEDS: metroNIDAZOLE 500MG/100ML IVPB 100 ML IV SCH ×2 (02:19→10:56)
[2022-06-25] MEDS: ceFAZolin INJECTION 2,000 MG in NS (IVPB) 50 ML IV SCH ×2 (02:20→10:57)
[2022-06-25] MEDS: 1/2 NS W/KCL 20 MEQ/L 1,000 ML IV SCH ×3 (04:44→19:01)
[2022-06-25 04:49] LABS: HEMATOCRIT 33 % (35-52); HEMOGLOBIN 9.9 g/dL (11.5-16.0); MEAN CORPUSCULAR HEMOGLOBIN 21 pg (25-34); MEAN CORPUSCULAR HGB CONC 31 g/dL (32-36); MEAN CORPUSCULAR VOLUME 70 fL (80-99); MEAN PLATELET VOLUME 10.5 fL (9.0-12.2); PLATELET COUNT 307 10^3/uL (130-400); WHITE BLOOD COUNT 25.3 10^3/uL (4.3-11.0)
[2022-06-25 05:12] LABS: POTASSIUM 4.6 MMOL/L (3.6-5.0)
[2022-06-25 05:13] LABS: CALCIUM 8.6 MG/DL (8.5-10.1)
[2022-06-25 05:17] LABS: CREATININE SERUM 0.84 MG/DL (0.60-1.30)
[2022-06-25] MEDS: diphenhydrAMINE 50 MG/ML INJ (BENADRYL) IVP PRN (05:43)
[2022-06-25] MEDS: ONDANSETRON 4 MG/2 ML (SDV) Z0FRAN IVP SCH (05:43)
[2022-06-25] MEDS: RT-ALBUTEROL HFA 8.5 GM INHALER IH SCH ×2 (07:24→21:53)
[2022-06-25] MEDS ORDERED: fentaNYL INJ 100 MCG/2 ML AMP IVP PRN (08:30)
[2022-06-25] MEDS ORDERED: RT-ALBUTEROL SULF 2.5 MG/3 ML PRE-MIX VIAL INH PRN (09:00)
[2022-06-25] MEDS: CEPACOL SORE THROAT-COUGH LOZENGE PO PRN (09:25)
[2022-06-25] MEDS: PANTOPRAZOLE 40 MG (PROTONIX) VIAL IV SCH (09:25)
[2022-06-25] MEDS: HYDROmorphone 2 MG/ML VIAL (DILAUDID) IV PRN ×4 (09:25→19:01)
[2022-06-25] MEDS: ENOXAPARIN INJECTION 30 MG/0.3 ML SYR SC SCH ×2 (09:26→21:24)
[2022-06-25] MEDS: SENNA W/DOCUSATE (SENOKOT S) TABLET PO SCH (09:31)
[2022-06-25] MEDS ORDERED: METOCLOPRAMIDE INJ 10 MG/2 ML (REGLAN) IVP PRN (11:00)
--- NOTE | 2022-06-25 11:26 | Progress Note ---
Subjective Date Seen by a Provider: Jun 25, 2022 Time Seen by a Provider: 11:00 Subjective/Events-last exam complains of pain however somnolent. pt has hx of significant anxiety. VSS, has fever however likely due to atelectasis. will get cxr and u/a. Objective Exam Vital Signs Date Time Temp Pulse Resp B/P (MAP) Pulse Ox O2 Delivery O2 Flow Rate FiO2 06/25/22 08:56 97 Nasal Cannula 3.00 06/25/22 08:00 38.3 119 24 136/78 (97) 98 Nasal Cannula 2.00 06/25/22 08:00 97 Nasal Cannula 3.50 06/25/22 07:24 99 Nasal Cannula 3.00 06/25/22 07:00 18 06/25/22 03:52 36.5 89 18 130/86 (101) 98 Nasal Cannula 2.00 06/25/22 02:51 97 Nasal Cannula 2.00 06/25/22 00:06 37.0 98 18 138/84 (102) 100 Nasal Cannula 2.00 06/24/22 20:45 20 06/24/22 19:49 97 Nasal Cannula 2.00 06/24/22 19:30 37.4 89 20 172/97 (122) 98 Nasal Cannula 2.00 06/24/22 16:25 37.2 85 20 153/81 (105) 95 Nasal Cannula 2.00 06/24/22 14:45 36.7 91 22 153/74 (100) 88 Room Air 06/24/22 14:35 Room Air 06/24/22 14:30 36.8 20 144/90 (108) 100 Room Air 06/24/22 14:20 OxyMask 3.00 06/24/22 14:20 21 158/94 (115) 100 OxyMask 3.00 06/24/22 14:10 19 145/94 (111) 100 OxyMask 8 06/24/22 14:05 OxyMask 8 06/24/22 14:00 20 154/84 (107) 100 OxyMask 8 06/24/22 13:50 22 136/75 (95) 100 OxyMask 8 06/24/22 13:50 OxyMask 8 06/24/22 13:40 16 146/82 (103) 100 OxyMask 8 06/24/22 13:37 OxyMask 8 06/24/22 13:37 36.5 20 141/79 (99) 99 OxyMask 8 I & O 06/25/22 07:00 Intake Total 2215 ml Output Total 1260 ml Balance 955 ml Capillary Refill : General Appearance: No Apparent Distress HEENT: PERRL/EOMI Neck: Full Range of Motion Respiratory: Normal Breath Sounds Cardiovascular: Regular Rate, Rhythm Gastrointestinal: soft, tenderness, other (incisions clean/dry) Extremity: Normal Capillary Refill Neurologic/Psychiatric: Alert, Oriented x3 Skin: Normal Color Lymphatic: No Adenopathy Results Lab Laboratory Tests 06/25/22 04:40: White Blood Count 25.3H, Red Blood Count 4.67, Hemoglobin 9.9L, Hematocrit 33L, Mean Corpuscular Volume 70L, Mean Corpuscular Hemoglobin 21L, Mean Corpuscular Hemoglobin Concent 31L, Red Cell Distribution Width 17.2H, Platelet Count 307, Mean Platelet Volume 10.5, Sodium Level 136, Potassium Level 4.6, Chloride Level 100, Carbon Dioxide Level 23, Anion Gap 13, Blood Urea Nitrogen 10, Creatinine 0.84, Estimat Glomerular Filtration Rate 82, BUN/Creatinine Ratio 12, Glucose Level 123H, Calcium Level 8.6 Microbiology 06/24/22 MRSA Screen - Final, Complete MRSA not isolated Assessment/Plan Assessment/Plan Assess & Plan/Chief Complaint s/p laparoscopic transverse colon resection secondary metastatic near obstructing colon cancer. HELENE PORTER MD Jun 25, 2022 11:26
[2022-06-25] MEDS: RT-ALBUTEROL HFA 8.5 GM INHALER IH PRN (12:17)
--- NOTE | 2022-06-25 13:51 | Diagnostic Imaging Report ---
INDICATION: Leukocytosis. COMPARISON: 06/24/2022. FINDINGS: Single frontal radiographic view of the chest was obtained and demonstrates left-sided subclavian Port-A-Cath with tip in the high SVC. Cardiac silhouette and pulmonary vasculature are within normal limits. Lungs are clear. There is no focal consolidation, large effusion, nor pneumothorax. Osseous structures show no gross acute abnormalities. IMPRESSION: 1. No new acute cardiopulmonary process. Dictated by: Dictated on workstation # [id number]
[2022-06-25] MEDS: RT-ALBUTEROL SULF 2.5 MG/3 ML PRE-MIX VIAL INH SCH (14:45)
[2022-06-25] MEDS: aCETylcysteine 20% (MUCOMYST) 4 ML SOLN VIAL INH SCH ×2 (14:45→21:53)
[2022-06-25] MEDS ORDERED: RT-ALBUTEROL SULF 2.5 MG/3 ML PRE-MIX VIAL INH SCH (21:00)
[2022-06-25] MEDS: HYDROcodone/APAP 7.5 MG/325 MG (LORTAB, LORCET PLUS) TABLET PO PRN (21:24)
[2022-06-26] VITALS (7 sets, daily range): BP systolic 104–142; BP diastolic 56–77
[2022-06-26] MEDS: RT-ALBUTEROL SULF 2.5 MG/3 ML PRE-MIX VIAL INH SCH ×5 (00:13→21:50)
[2022-06-26] MEDS: HYDROmorphone 2 MG/ML VIAL (DILAUDID) IV PRN ×4 (00:30→21:20)
[2022-06-26] MEDS: 1/2 NS W/KCL 20 MEQ/L 1,000 ML IV SCH ×3 (01:51→16:51)
[2022-06-26] MEDS: aCETylcysteine 20% (MUCOMYST) 4 ML SOLN VIAL INH SCH ×4 (03:13→20:58)
[2022-06-26] MEDS: HYDROcodone/APAP 7.5 MG/325 MG (LORTAB, LORCET PLUS) TABLET PO PRN ×4 (03:35→23:07)
[2022-06-26] MEDS: ONDANSETRON 4 MG/2 ML (SDV) Z0FRAN IV PRN ×2 (03:35→12:49)
[2022-06-26 06:20] LABS: BASOPHILS # (AUTO) 0.1 10^3/uL (0.0-0.1); BASOPHILS % (AUTO) 0 % (0-10); EOSINOPHILS % (AUTO) 0 % (0-10); HEMATOCRIT 28 % (35-52); HEMOGLOBIN 8.5 g/dL (11.5-16.0); LYMPHOCYTES # (AUTO) 1.6 10^3/uL (1.0-4.0); LYMPHOCYTES % (AUTO) 6 % (12-44); MEAN CORPUSCULAR HEMOGLOBIN 21 pg (25-34); MEAN CORPUSCULAR HGB CONC 30 g/dL (32-36); MEAN CORPUSCULAR VOLUME 69 fL (80-99); MEAN PLATELET VOLUME 10.5 fL (9.0-12.2); MONOCYTES # (AUTO) 3.6 10^3/uL (0.0-1.0); MONOCYTES % (AUTO) 13 % (0-12); NEUTROPHILS # (AUTO) 22.2 10^3/uL (1.8-7.8); NEUTROPHILS % (AUTO) 80 % (42-75); PLATELET COUNT 277 10^3/uL (130-400); WHITE BLOOD COUNT 27.7 10^3/uL (4.3-11.0)
[2022-06-26 06:45] LABS: POTASSIUM 4.3 MMOL/L (3.6-5.0)
[2022-06-26 06:47] LABS: CALCIUM 8.3 MG/DL (8.5-10.1)
[2022-06-26 06:51] LABS: CREATININE SERUM 0.7 MG/DL (0.60-1.30)
[2022-06-26 06:58] LABS: NEUTROPHILS % (MANUAL) 88 %
[2022-06-26 06:59] LABS: EOSINOPHILS % (MANUAL) 1 %; HYPOCHROMASIA SLIGHT; LYMPHOCYTES % (MANUAL) 5 %; MICROCYTOSIS SLIGHT; MONOCYTES % (MANUAL) 6 %
[2022-06-26] MEDS: PANTOPRAZOLE 40 MG (PROTONIX) VIAL IV SCH ×2 (07:53→21:19)
[2022-06-26] MEDS: ENOXAPARIN INJECTION 30 MG/0.3 ML SYR SC SCH ×2 (07:54→20:07)
[2022-06-26] MEDS: diphenhydrAMINE 50 MG/ML INJ (BENADRYL) IVP PRN ×4 (07:55→23:07)
[2022-06-26] MEDS: SENNA W/DOCUSATE (SENOKOT S) TABLET PO SCH (07:55)
[2022-06-26] MEDS: METOCLOPRAMIDE INJ 10 MG/2 ML (REGLAN) IV PRN ×2 (08:07→16:34)
[2022-06-26] MEDS: RT-ALBUTEROL HFA 8.5 GM INHALER IH SCH ×2 (09:44→20:58)
--- NOTE | 2022-06-26 12:08 | Progress Note ---
Subjective Date Seen by a Provider: Jun 26, 2022 Time Seen by a Provider: 11:20 Subjective/Events-last exam Patient seen with Dr. Hudson. Patient reports having abdominal pain. No nausea or vomiting. Tolerating sips of clear liquids. Patient refusing breathing treatments this morning. Patient reports the abdominal drain is causing her pain and is the reason she cannot get up and walk or sit in the chair. She does report her abdomen is itching and believes she has an allergy to something. Objective Exam Vital Signs Date Time Temp Pulse Resp B/P (MAP) Pulse Ox O2 Delivery O2 Flow Rate FiO2 06/26/22 11:33 37.6 106 18 116/63 (80) 97 Nasal Cannula 3.00 06/26/22 09:48 Nasal Cannula 2.00 06/26/22 09:45 99 Nasal Cannula 3.00 06/26/22 08:18 92 Nasal Cannula 3.50 06/26/22 07:21 38.1 118 20 113/56 (75) 92 Nasal Cannula 3.00 06/26/22 07:00 18 06/26/22 03:33 37.7 111 18 142/71 (94) 98 Nasal Cannula 3.00 06/26/22 03:14 95 Nasal Cannula 3.00 06/26/22 00:06 37.7 114 18 121/69 (86) 97 Nasal Cannula 3.00 06/25/22 21:00 38.2 118 22 153/85 (107) 96 Nasal Cannula 3.00 06/25/22 20:54 18 06/25/22 20:30 97 Nasal Cannula 3.50 06/25/22 16:26 38.8 113 19 155/84 (107) 99 Nasal Cannula 3.00 06/25/22 14:46 97 Nasal Cannula 3.00 06/25/22 12:47 37.9 113 22 147/70 (95) 98 Nasal Cannula 2.00 I & O 06/26/22 07:00 Intake Total 1150 ml Output Total 4030 ml Balance -2880 ml Capillary Refill : General Appearance: No Apparent Distress, WD/WN Neck: Normal Inspection, Supple Respiratory: No Accessory Muscle Use, No Respiratory Distress Gastrointestinal: soft, tenderness, other (LUQ AFTAB drain with minimal SS fluid in bulb) Extremity: Normal Inspection, Normal Range of Motion Neurologic/Psychiatric: Alert, Oriented x3 Skin: Warm/Dry, Rash (Abdominal pinpoint rash in area of surgical prep), Other (Abdominal incisions C/D/I) Results Lab Laboratory Tests 06/26/22 06:00: White Blood Count 27.7H, Red Blood Count 4.04, Hemoglobin 8.5L, Hematocrit 28L, Mean Corpuscular Volume 69L, Mean Corpuscular Hemoglobin 21L, Mean Corpuscular Hemoglobin Concent 30L, Red Cell Distribution Width 17.2H, Platelet Count 277, Mean Platelet Volume 10.5, Immature Granulocyte % (Auto) 1, Neutrophils (%) (Auto) 80H, Lymphocytes (%) (Auto) 6L, Monocytes (%) (Auto) 13H, Eosinophils (%) (Auto) 0, Basophils (%) (Auto) 0, Neutrophils # (Auto) 22.2H, Lymphocytes # (Auto) 1.6, Monocytes # (Auto) 3.6H, Eosinophils # (Auto) 0.0, Basophils # (Auto) 0.1, Immature Granulocyte # (Auto) 0.2H, Neutrophils % (Manual) 88, Lymphocytes % (Manual) 5, Monocytes % (Manual) 6, Eosinophils % (Manual) 1, Hypochromasia SLIGHT, Microcytosis SLIGHT, Sodium Level 135, Potassium Level 4. 3, Chloride Level 99, Carbon Dioxide Level 26, Anion Gap 10, Blood Urea Nitrogen 8, Creatinine 0.70, Estimat Glomerular Filtration Rate 102, BUN/Creatinine Ratio 11, Glucose Level 80, Calcium Level 8.3L Microbiology 06/24/22 MRSA Screen - Final, Complete MRSA not isolated Assessment/Plan Assessment/Plan Assess & Plan/Chief Complaint A 57 year old female who is S/P laparoscopic transverse colon resection secondary metastatic near obstructing colon cancer. Having fevers and WBC 27.7 - on Abx - will continue to monitor - mostly likely due to atelectasis Tolerating sips of clear liquids Continue IV abx, pain, nausea meds PPI DVT prophylaxis Encouraged breathing treatments, ambulation, IS Will recheck CBC and CMP in ESE CREWS APRN Jun 26, 2022 12:08
[2022-06-26 12:19] LABS: BILIRUBIN,URINE NEGATIVE (NEGATIVE); CLARITY,URINE CLEAR; COLOR,URINE YELLOW; GLUCOSE, URINE (UA) NEGATIVE (NEGATIVE); KETONES,URINE 1+ (NEGATIVE); LEUKOCYTE ESTERASE ,URINE NEGATIVE (NEGATIVE); NITRITE,URINE NEGATIVE (NEGATIVE); PH,URINE 5.5 (5-9); PROTEIN,URINE NEGATIVE (NEGATIVE)
[2022-06-26 12:35] LABS: BACTERIA,URINE TRACE /HPF; RBC,URINE 0-2 /HPF
[2022-06-26] MEDS: LORazepam ORAL CONCENTRATE 2 MG/ML 30 ML (ATIVAN) SL PRN (18:26)
[2022-06-26] MEDS: METOCLOPRAMIDE INJ 10 MG/2 ML (REGLAN) IVP SCH (20:07)
[2022-06-26] MEDS: metroNIDAZOLE 500MG/100ML IVPB 100 ML IV SCH (20:07)
[2022-06-27] MEDS: 1/2 NS W/KCL 20 MEQ/L 1,000 ML IV SCH ×3 (00:20→18:04)
[2022-06-27] MEDS: RT-ALBUTEROL SULF 2.5 MG/3 ML PRE-MIX VIAL INH SCH ×2 (02:31→11:11)
[2022-06-27] MEDS: aCETylcysteine 20% (MUCOMYST) 4 ML SOLN VIAL INH SCH ×3 (02:31→11:11)
[2022-06-27] MEDS: LORazepam ORAL CONCENTRATE 2 MG/ML 30 ML (ATIVAN) SL PRN ×2 (03:04→21:43)
[2022-06-27] MEDS: HYDROmorphone 2 MG/ML VIAL (DILAUDID) IV PRN ×2 (03:05→22:29)
[2022-06-27 03:31] VITALS: BP 117/71
[2022-06-27 07:31] VITALS: BP 124/68
[2022-06-27 07:52] LABS: BASOPHILS # (AUTO) 0.1 10^3/uL (0.0-0.1); BASOPHILS % (AUTO) 0 % (0-10); EOSINOPHILS # (AUTO) 0.6 10^3/uL (0.0-0.3); EOSINOPHILS % (AUTO) 2 % (0-10); HEMATOCRIT 29 % (35-52); HEMOGLOBIN 8.7 g/dL (11.5-16.0); LYMPHOCYTES # (AUTO) 1.8 10^3/uL (1.0-4.0); LYMPHOCYTES % (AUTO) 6 % (12-44); MEAN CORPUSCULAR HEMOGLOBIN 21 pg (25-34); MEAN CORPUSCULAR HGB CONC 30 g/dL (32-36); MEAN CORPUSCULAR VOLUME 70 fL (80-99); MONOCYTES # (AUTO) 2.7 10^3/uL (0.0-1.0); MONOCYTES % (AUTO) 10 % (0-12); NEUTROPHILS # (AUTO) 22.1 10^3/uL (1.8-7.8); NEUTROPHILS % (AUTO) 81 % (42-75); PLATELET COUNT 274 10^3/uL (130-400); WHITE BLOOD COUNT 27.3 10^3/uL (4.3-11.0)
[2022-06-27 08:05] LABS: ALBUMIN 2.9 GM/DL (3.2-4.5); POTASSIUM 4.3 MMOL/L (3.6-5.0)
[2022-06-27 08:07] LABS: CALCIUM 8.7 MG/DL (8.5-10.1)
[2022-06-27 08:08] LABS: TOTAL PROTEIN 5.9 GM/DL (6.4-8.2)
[2022-06-27 08:10] LABS: BILIRUBIN,TOTAL 0.4 MG/DL (0.1-1.0)
[2022-06-27 08:11] LABS: CREATININE SERUM 0.62 MG/DL (0.60-1.30)
--- NOTE | 2022-06-27 10:05 | Progress Note ---
Subjective Date Seen by a Provider: Jun 27, 2022 Time Seen by a Provider: 09:50 Subjective/Events-last exam Patient see with Dr. Hudson. Patient reports still having LUQ pain but is better with oral pain meds. Still reports abdominal itching. Passing flatus and tolerating clear liquids. Reports having heartburn. Has not sat in chair or ambulated. Objective Exam Vital Signs Date Time Temp Pulse Resp B/P (MAP) Pulse Ox O2 Delivery O2 Flow Rate FiO2 06/27/22 07:31 37.1 102 20 124/68 (86) 96 Nasal Cannula 2.00 06/27/22 03:31 36.8 95 20 117/71 (86) 96 Nasal Cannula 2.00 06/27/22 02:32 97 Nasal Cannula 2.00 06/26/22 23:32 37.0 100 20 126/77 (93) 96 Nasal Cannula 2.00 06/26/22 21:52 20 06/26/22 20:23 37.2 104 20 104/59 (74) 96 Nasal Cannula 2.00 06/26/22 20:00 95 Nasal Cannula 3.50 06/26/22 16:17 37.2 106 18 106/57 (73) 95 Nasal Cannula 2.00 06/26/22 11:33 37.6 106 18 116/63 (80) 97 Nasal Cannula 3.00 I & O 06/27/22 07:00 Intake Total 730 ml Output Total 2830 ml Balance -2100 ml Capillary Refill : General Appearance: No Apparent Distress, WD/WN Neck: Normal Inspection, Supple Respiratory: No Accessory Muscle Use, No Respiratory Distress Gastrointestinal: soft, tenderness, other (Abominal incisions C/D/I. AFTAB drain with minimal SS drainage) Extremity: Normal Inspection, Normal Range of Motion Neurologic/Psychiatric: Alert, Oriented x3 Skin: Normal Color, Warm/Dry Results Lab Laboratory Tests 06/26/22 11:45: Urine Color YELLOW, Urine Clarity CLEAR, Urine pH 5.5, Urine Specific Whipple >=1.030, Urine Protein NEGATIVE, Urine Glucose (UA) NEGATIVE, Urine Ketones 1+H, Urine Nitrite NEGATIVE, Urine Bilirubin NEGATIVE, Urine Urobilinogen 0.2, Urine Leukocyte Esterase NEGATIVE, Urine RBC (Auto) TRACE-IH, Urine RBC 0-2, Urine WBC 2-5, Urine Crystals NONE, Urine Bacteria TRACE, Urine Casts NONE, Urine Mucus NEGATIVE, Urine Culture Indicated NO 06/27/22 07:43: White Blood Count 27.3H, Red Blood Count 4.18, Hemoglobin 8.7L, Hematocrit 29L, Mean Corpuscular Volume 70L, Mean Corpuscular Hemoglobin 21L, Mean Corpuscular Hemoglobin Concent 30L, Red Cell Distribution Width 17.2H, Platelet Count 274, Mean Platelet Volume 10.0, Immature Granulocyte % (Auto) 1, Neutrophils (%) (Auto) 81H, Lymphocytes (%) (Auto) 6L, Monocytes (%) (Auto) 10, Eosinophils (%) (Auto) 2, Basophils (%) (Auto) 0, Neutrophils # (Auto) 22.1H, Lymphocytes # (Auto) 1.8, Monocytes # (Auto) 2.7H, Eosinophils # (Auto) 0.6H, Basophils # (Auto) 0.1, Immature Granulocyte # (Auto) 0.2H, Sodium Level 135, Potassium Level 4.3, Chloride Level 96L, Carbon Dioxide Level 28, Anion Gap 11, Blood Urea Nitrogen 8, Creatinine 0.62, Estimat Glomerular Filtration Rate 105, BUN/Creatinine Ratio 13, Glucose Level 71, Calcium Level 8.7, Corrected Calcium 9.6, Total Bilirubin 0.4, Aspartate Amino Transf (AST/SGOT) 23, Alanine Aminotransferase (ALT/SGPT) 14, Alkaline Phosphatase 87, Total Protein 5.9L, Albumin 2.9L Microbiology 06/26/22 Urine Culture - Preliminary, Resulted NO GROWTH 06/24/22 MRSA Screen - Final, Complete MRSA not isolated Assessment/Plan Assessment/Plan Assess & Plan/Chief Complaint A 57 year old female who is S/P laparoscopic transverse colon resection secondary metastatic near obstructing colon cancer. Having fevers and WBC 27.3 - on Abx - will continue to monitor - mostly likely due to atelectasis Tolerating clear liquids - will await more bowel function Continue IV abx, pain, nausea meds PPI DVT prophylaxis Encouraged breathing treatments, ambulation, IS Will recheck CBC and CMP in AM Will start hydrocortisone cream as needed to abdomen for itching ESE PAEZ APRN Jun 27, 2022 10:05
[2022-06-27] MEDS: metroNIDAZOLE 500MG/100ML IVPB 100 ML IV SCH ×2 (10:07→21:44)
[2022-06-27] MEDS: PANTOPRAZOLE 40 MG (PROTONIX) VIAL IV SCH ×2 (10:07→21:43)
[2022-06-27] MEDS: METOCLOPRAMIDE INJ 10 MG/2 ML (REGLAN) IVP SCH ×2 (10:08→21:43)
[2022-06-27] MEDS: SENNA W/DOCUSATE (SENOKOT S) TABLET PO SCH ×2 (10:08→10:10)
[2022-06-27] MEDS: diphenhydrAMINE 50 MG/ML INJ (BENADRYL) IVP PRN (10:08)
[2022-06-27] MEDS: HYDROcodone/APAP 7.5 MG/325 MG (LORTAB, LORCET PLUS) TABLET PO PRN ×3 (10:09→21:43)
[2022-06-27] MEDS: ENOXAPARIN INJECTION 30 MG/0.3 ML SYR SC SCH ×2 (10:10→21:43)
[2022-06-27] MEDS: RT-ALBUTEROL HFA 8.5 GM INHALER IH SCH ×2 (11:11→18:55)
[2022-06-27] MEDS: SCOPOLAMINE PATCH REMOVAL TP SCH (11:17)
[2022-06-27 12:00] VITALS: BP 119/59
[2022-06-27] MEDS ORDERED: HYDROCORTISONE 2.5% CREAM (ANUSOL-HC) 30 GM TOP PRN (12:00)
[2022-06-27 16:10] VITALS: BP 115/77
[2022-06-27 20:04] VITALS: BP 128/81
[2022-06-27 23:12] VITALS: BP 115/75
[2022-06-28 03:48] VITALS: BP 119/70
[2022-06-28] MEDS: LORazepam ORAL CONCENTRATE 2 MG/ML 30 ML (ATIVAN) SL PRN ×3 (04:53→21:35)
[2022-06-28] MEDS: HYDROcodone/APAP 7.5 MG/325 MG (LORTAB, LORCET PLUS) TABLET PO PRN ×3 (04:54→14:59)
[2022-06-28] MEDS: HYDROmorphone 2 MG/ML VIAL (DILAUDID) IV PRN ×4 (05:29→19:58)
[2022-06-28 06:32] LABS: HEMATOCRIT 28 % (35-52); HEMOGLOBIN 8.5 g/dL (11.5-16.0); MEAN CORPUSCULAR HEMOGLOBIN 21 pg (25-34); MEAN CORPUSCULAR HGB CONC 31 g/dL (32-36); MEAN CORPUSCULAR VOLUME 69 fL (80-99); MEAN PLATELET VOLUME 10.5 fL (9.0-12.2); PLATELET COUNT 351 10^3/uL (130-400); WHITE BLOOD COUNT 17.3 10^3/uL (4.3-11.0)
[2022-06-28 06:49] LABS: ALBUMIN 2.9 GM/DL (3.2-4.5); POTASSIUM 3.6 MMOL/L (3.6-5.0)
[2022-06-28 06:50] LABS: CALCIUM 8.6 MG/DL (8.5-10.1)
[2022-06-28 06:51] LABS: TOTAL PROTEIN 5.8 GM/DL (6.4-8.2)
[2022-06-28 06:53] LABS: BILIRUBIN,TOTAL 0.3 MG/DL (0.1-1.0)
[2022-06-28 06:55] LABS: CREATININE SERUM 0.62 MG/DL (0.60-1.30)
[2022-06-28] MEDS: RT-ALBUTEROL HFA 8.5 GM INHALER IH SCH ×2 (07:08→21:45)
[2022-06-28 08:00] VITALS: BP 117/72
--- NOTE | 2022-06-28 08:23 | Diagnostic Imaging Report ---
Indication: COPD. Compared: 06/25/2022 Findings: Left subclavian line at the mid SVC stable, no pneumothorax. There is some volume loss in the right lung, elevating the right diaphragm with some mild basilar likely atelectatic changes, pneumonia superimposed could not be excluded. The left lung clear and well expanded. Impression: 1. Decreased expansion of the right lower lobe in the interim at least partial atelectasis is present but in the appropriate clinical scenario, pneumonia superimposed could not be radiographically excluded. 2. Stable support apparatus, negative left chest. No pneumothorax. Dictated by: Dictated on workstation # [id number]
[2022-06-28] MEDS: SENNA W/DOCUSATE (SENOKOT S) TABLET PO SCH (09:02)
[2022-06-28] MEDS: METOCLOPRAMIDE INJ 10 MG/2 ML (REGLAN) IVP SCH ×2 (09:03→19:44)
[2022-06-28] MEDS: metroNIDAZOLE 500MG/100ML IVPB 100 ML IV SCH ×2 (09:03→19:45)
[2022-06-28] MEDS: PANTOPRAZOLE 40 MG (PROTONIX) VIAL IV SCH ×2 (09:03→19:44)
[2022-06-28] MEDS: ENOXAPARIN INJECTION 30 MG/0.3 ML SYR SC SCH ×2 (09:03→19:44)
[2022-06-28 12:00] VITALS: BP 110/75
[2022-06-28] MEDS: diphenhydrAMINE 50 MG/ML INJ (BENADRYL) IVP PRN ×2 (15:36→22:19)
[2022-06-28 16:00] VITALS: BP 130/78
--- NOTE | 2022-06-28 18:28 | Progress Note ---
Subjective Date Seen by a Provider: Jun 28, 2022 Time Seen by a Provider: 18:00 Subjective/Events-last exam doing better. sat in chair for one hour today. passing flatus. tolerating dys2 diet. pain still there but more controlled. Objective Exam Vital Signs Date Time Temp Pulse Resp B/P (MAP) Pulse Ox O2 Delivery O2 Flow Rate FiO2 06/28/22 16:00 37.1 109 17 130/78 (95) 93 Nasal Cannula 1.00 06/28/22 12:00 38.4 101 20 110/75 (87) 94 Nasal Cannula 1.00 06/28/22 08:00 Nasal Cannula 1.00 06/28/22 08:00 38.0 111 22 117/72 (87) 92 Nasal Cannula 1.00 06/28/22 07:08 95 Nasal Cannula 1.00 06/28/22 03:48 37.0 105 18 119/70 (86) 94 Nasal Cannula 1.00 06/27/22 23:12 37.2 107 18 115/75 (88) 93 Nasal Cannula 1.00 06/27/22 20:45 Nasal Cannula 1.00 06/27/22 20:04 37.8 107 18 128/81 (97) 94 Nasal Cannula 1.00 06/27/22 18:56 96 Nasal Cannula 1.00 I & O 06/28/22 07:00 Intake Total 1325 ml Output Total 2590 ml Balance -1265 ml Capillary Refill : General Appearance: No Apparent Distress HEENT: PERRL/EOMI Neck: Full Range of Motion Respiratory: Decreased Breath Sounds, Wheezing Cardiovascular: Regular Rate, Rhythm Gastrointestinal: normal bowel sounds, soft, tenderness Extremity: Normal Capillary Refill Neurologic/Psychiatric: Alert, Oriented x3 Skin: Normal Color Lymphatic: No Adenopathy Results Lab Laboratory Tests 06/28/22 06:08: White Blood Count 17.3H, Red Blood Count 4.07, Hemoglobin 8.5L, Hematocrit 28L, Mean Corpuscular Volume 69L, Mean Corpuscular Hemoglobin 21L, Mean Corpuscular Hemoglobin Concent 31L, Red Cell Distribution Width 17.0H, Platelet Count 351, Mean Platelet Volume 10.5, Sodium Level 137, Potassium Level 3.6, Chloride Level 96L, Carbon Dioxide Level 32, Anion Gap 9, Blood Urea Nitrogen 7, Creatinine 0.62, Estimat Glomerular Filtration Rate 105, BUN/Creatinine Ratio 11, Glucose Level 116H, Calcium Level 8.6, Corrected Calcium 9.5, Total Bilirubin 0.3, Aspartate Amino Transf (AST/SGOT) 17, Alanine Aminotransferase (ALT/SGPT) 14, Alkaline Phosphatase 82, Total Protein 5.8L, Albumin 2.9L Microbiology 06/26/22 Urine Culture - Final, Complete NO GROWTH 06/24/22 MRSA Screen - Final, Complete MRSA not isolated Assessment/Plan Assessment/Plan Assess & Plan/Chief Complaint s/p laparoscopic transverse colon resection secondary metastatic near obstructing colon cancer. increase ambulation. advance to dys3 diet. cont abx for pneumonia HELENE PORTER MD Jun 28, 2022 18:28
[2022-06-28 20:00] VITALS: BP 141/84
[2022-06-28] MEDS: ONDANSETRON 4 MG/2 ML (SDV) Z0FRAN IV PRN (22:23)
[2022-06-28 23:43] VITALS: BP 118/75
[2022-06-29] MEDS: HYDROmorphone 2 MG/ML VIAL (DILAUDID) IV PRN ×5 (01:45→22:36)
[2022-06-29 03:46] VITALS: BP 119/77
[2022-06-29] MEDS: METOCLOPRAMIDE INJ 10 MG/2 ML (REGLAN) IV PRN ×2 (04:10→16:30)
[2022-06-29 05:26] LABS: BASOPHILS # (AUTO) 0.1 10^3/uL (0.0-0.1); BASOPHILS % (AUTO) 0 % (0-10); EOSINOPHILS # (AUTO) 1.2 10^3/uL (0.0-0.3); EOSINOPHILS % (AUTO) 7 % (0-10); HEMATOCRIT 30 % (35-52); LYMPHOCYTES # (AUTO) 1.5 10^3/uL (1.0-4.0); LYMPHOCYTES % (AUTO) 9 % (12-44); MEAN CORPUSCULAR HEMOGLOBIN 21 pg (25-34); MEAN CORPUSCULAR HGB CONC 31 g/dL (32-36); MEAN CORPUSCULAR VOLUME 69 fL (80-99); MEAN PLATELET VOLUME 10.1 fL (9.0-12.2); MONOCYTES # (AUTO) 2.3 10^3/uL (0.0-1.0); MONOCYTES % (AUTO) 13 % (0-12); NEUTROPHILS # (AUTO) 12.1 10^3/uL (1.8-7.8); NEUTROPHILS % (AUTO) 70 % (42-75); PLATELET COUNT 421 10^3/uL (130-400); WHITE BLOOD COUNT 17.3 10^3/uL (4.3-11.0)
[2022-06-29] MEDS: diphenhydrAMINE 50 MG/ML INJ (BENADRYL) IVP PRN ×2 (05:39→20:20)
[2022-06-29 05:57] LABS: ALBUMIN 2.9 GM/DL (3.2-4.5); POTASSIUM 4.1 MMOL/L (3.6-5.0)
[2022-06-29 05:58] LABS: CALCIUM 8.7 MG/DL (8.5-10.1)
[2022-06-29 05:59] LABS: TOTAL PROTEIN 5.9 GM/DL (6.4-8.2)
[2022-06-29 06:01] LABS: BILIRUBIN,TOTAL 0.3 MG/DL (0.1-1.0)
[2022-06-29 06:03] LABS: CREATININE SERUM 0.61 MG/DL (0.60-1.30)
[2022-06-29 07:49] VITALS: BP 121/75
[2022-06-29] MEDS: RT-ALBUTEROL HFA 8.5 GM INHALER IH SCH ×2 (07:52→18:11)
[2022-06-29] MEDS: SENNA W/DOCUSATE (SENOKOT S) TABLET PO SCH (09:00)
[2022-06-29] MEDS: metroNIDAZOLE 500MG/100ML IVPB 100 ML IV SCH (09:22)
[2022-06-29] MEDS: METOCLOPRAMIDE INJ 10 MG/2 ML (REGLAN) IVP SCH ×2 (09:22→20:18)
[2022-06-29] MEDS: ONDANSETRON 4 MG/2 ML (SDV) Z0FRAN IV PRN ×2 (09:22→20:19)
[2022-06-29] MEDS: ENOXAPARIN INJECTION 30 MG/0.3 ML SYR SC SCH ×2 (09:22→20:19)
[2022-06-29] MEDS: PANTOPRAZOLE 40 MG (PROTONIX) VIAL IV SCH ×2 (09:22→20:19)
[2022-06-29] MEDS: HYDROcodone/APAP 7.5 MG/325 MG (LORTAB, LORCET PLUS) TABLET PO PRN ×2 (09:23→20:21)
[2022-06-29 11:07] VITALS: BP 112/66
[2022-06-29] MEDS: LORazepam ORAL CONCENTRATE 2 MG/ML 30 ML (ATIVAN) SL PRN ×2 (11:57→20:20)
[2022-06-29 13:00] VITALS: BP 144/77
[2022-06-29] MEDS ORDERED: HYDR-3817 PO (15:26)
[2022-06-29] MEDS ORDERED: METR-145 PO (15:26)
[2022-06-29] MEDS ORDERED: LEVO-55 PO (15:26)
--- NOTE | 2022-06-29 15:26 | Discharge Inst-Surgical ---
D/C Lap Instructions-[place] New, Converted, or Re-Newed RX: RX on Chart Follow Up Appt in 1 week Activity as tolerated No driving for 24 hours No driving while on pain medications Incentive Spirometry use every 2 hours while awake Regular Diet Symptoms to Report: Fever over 101 degree F, Nausea/Vomiting Infection Signs and Symptoms to report: Increased redness, Foul odor of wound, Increased drainage Bathing instructions: May shower Operative Area Clean/Dry; Keep incision clean/dry If any problems/questions: Contact your physician or go to Emergency Room HELENE PORTER MD Jun 29, 2022 15:26
--- NOTE | 2022-06-29 15:31 | Progress Note ---
Subjective Date Seen by a Provider: Jun 29, 2022 Time Seen by a Provider: 11:00 Subjective/Events-last exam doing better. passing flatus but no BM. still not ambulating enough even though encouraged to. patient very difficult to deal with and non-compliant. Objective Exam Vital Signs Date Time Temp Pulse Resp B/P (MAP) Pulse Ox O2 Delivery O2 Flow Rate FiO2 06/29/22 13:00 36.6 116 18 144/77 (99) 93 Nasal Cannula 1.00 06/29/22 11:07 37.5 109 18 112/66 (81) 96 Nasal Cannula 1.00 06/29/22 08:09 Nasal Cannula 2.00 06/29/22 07:52 94 Nasal Cannula 2.00 06/29/22 07:49 38.0 115 20 121/75 (90) 92 Nasal Cannula 1.00 06/29/22 03:46 38.0 112 18 119/77 (91) 90 Nasal Cannula 1.00 06/28/22 23:43 38.0 114 18 118/75 (89) 92 Nasal Cannula 1.00 06/28/22 21:55 94 Nasal Cannula 1.00 06/28/22 20:03 Nasal Cannula 1.00 06/28/22 20:00 36.9 111 17 141/84 (103) 91 Nasal Cannula 1.00 06/28/22 16:00 37.1 109 17 130/78 (95) 93 Nasal Cannula 1.00 I & O 06/29/22 07:00 Intake Total 780 ml Output Total 1275 ml Balance -495 ml Capillary Refill : General Appearance: No Apparent Distress HEENT: PERRL/EOMI Neck: Full Range of Motion Respiratory: Chest Non Tender, Decreased Breath Sounds, Wheezing Cardiovascular: Regular Rate, Rhythm Gastrointestinal: soft, distended, tenderness, other (AFTAB minimal and SS) Extremity: Normal Capillary Refill Neurologic/Psychiatric: Alert, Oriented x3 Skin: Normal Color Lymphatic: No Adenopathy Results Lab Laboratory Tests 06/29/22 05:11: White Blood Count 17.3H, Red Blood Count 4.28, Hemoglobin 9.0L, Hematocrit 30L, Mean Corpuscular Volume 69L, Mean Corpuscular Hemoglobin 21L, Mean Corpuscular Hemoglobin Concent 31L, Red Cell Distribution Width 17.1H, Platelet Count 421H, Mean Platelet Volume 10.1, Immature Granulocyte % (Auto) 1, Neutrophils (%) (Auto) 70, Lymphocytes (%) (Auto) 9L, Monocytes (%) (Auto) 13H, Eosinophils (%) (Auto) 7, Basophils (%) (Auto) 0, Neutrophils # (Auto) 12.1H, Lymphocytes # (Auto) 1.5, Monocytes # (Auto) 2.3H, Eosinophils # (Auto) 1.2H, Basophils # (Auto) 0.1, Immature Granulocyte # (Auto) 0.1, Sodium Level 138, Potassium Level 4.1, Chloride Level 97L, Carbon Dioxide Level 29, Anion Gap 12, Blood Urea Nitrogen 7, Creatinine 0.61, Estimat Glomerular Filtration Rate 106, BUN/Creatinine Ratio 11, Glucose Level 113H, Calcium Level 8.7, Corrected Calcium 9.6, Total Bilirubin 0.3, Aspartate Amino Transf (AST/SGOT) 14, Alanine Aminotransferase (ALT/SGPT) 14, Alkaline Phosphatase 78, Total Protein 5.9L, Albumin 2.9L Microbiology 06/26/22 Urine Culture - Final, Complete NO GROWTH 06/24/22 MRSA Screen - Final, Complete MRSA not isolated Assessment/Plan Assessment/Plan Assess & Plan/Chief Complaint s/p laparoscopic transverse colon resection secondary metastatic near obstructing colon cancer. increase ambulation. advance to regular diet. cont abx for pneumonia. start miralax. HELENE PORTER MD Jun 29, 2022 15:31
[2022-06-29 16:27] VITALS: BP 167/86
[2022-06-29 19:58] VITALS: BP 131/88
[2022-06-29] MEDS: polyethylene glycoL POWDER 17 GM (MIRALAX) PACK PO SCH (21:00)
[2022-06-29] MEDS: RT-ALBUTEROL HFA 8.5 GM INHALER IH PRN (21:57)
[2022-06-30] VITALS: BP 115/57
[2022-06-30 04:00] VITALS: BP 134/74
[2022-06-30] MEDS: ONDANSETRON 4 MG/2 ML (SDV) Z0FRAN IV PRN ×2 (04:14→12:20)
[2022-06-30] MEDS: HYDROmorphone 2 MG/ML VIAL (DILAUDID) IV PRN ×5 (04:14→22:47)
[2022-06-30 04:41] LABS: BASOPHILS # (AUTO) 0.1 10^3/uL (0.0-0.1); BASOPHILS % (AUTO) 0 % (0-10); EOSINOPHILS # (AUTO) 1.6 10^3/uL (0.0-0.3); EOSINOPHILS % (AUTO) 10 % (0-10); HEMATOCRIT 29 % (35-52); HEMOGLOBIN 8.8 g/dL (11.5-16.0); LYMPHOCYTES % (AUTO) 12 % (12-44); MEAN CORPUSCULAR HEMOGLOBIN 21 pg (25-34); MEAN CORPUSCULAR HGB CONC 30 g/dL (32-36); MEAN CORPUSCULAR VOLUME 69 fL (80-99); MEAN PLATELET VOLUME 9.8 fL (9.0-12.2); MONOCYTES # (AUTO) 2.2 10^3/uL (0.0-1.0); MONOCYTES % (AUTO) 14 % (0-12); NEUTROPHILS # (AUTO) 10.2 10^3/uL (1.8-7.8); NEUTROPHILS % (AUTO) 63 % (42-75); PLATELET COUNT 457 10^3/uL (130-400)
[2022-06-30 05:00] LABS: POTASSIUM 3.8 MMOL/L (3.6-5.0)
[2022-06-30 05:01] LABS: CALCIUM 8.7 MG/DL (8.5-10.1)
[2022-06-30 05:06] LABS: CREATININE SERUM 0.6 MG/DL (0.60-1.30)
[2022-06-30] MEDS: LORazepam ORAL CONCENTRATE 2 MG/ML 30 ML (ATIVAN) SL PRN ×3 (05:38→20:56)
[2022-06-30 07:48] VITALS: BP 135/71
[2022-06-30] MEDS: METOCLOPRAMIDE INJ 10 MG/2 ML (REGLAN) IVP SCH ×2 (08:03→13:28)
[2022-06-30] MEDS: polyethylene glycoL POWDER 17 GM (MIRALAX) PACK PO SCH ×2 (08:03→20:44)
[2022-06-30] MEDS: SENNA W/DOCUSATE (SENOKOT S) TABLET PO SCH (08:04)
[2022-06-30] MEDS: PANTOPRAZOLE 40 MG (PROTONIX) VIAL IV SCH ×2 (08:04→20:44)
[2022-06-30] MEDS: ENOXAPARIN INJECTION 30 MG/0.3 ML SYR SC SCH ×2 (08:04→20:44)
[2022-06-30] MEDS: SCOPOLAMINE PATCH REMOVAL TP SCH (08:05)
[2022-06-30] MEDS: RT-ALBUTEROL HFA 8.5 GM INHALER IH SCH (09:44)
[2022-06-30 11:14] VITALS: BP 128/75
[2022-06-30] MEDS: HYDROcodone/APAP 7.5 MG/325 MG (LORTAB, LORCET PLUS) TABLET PO PRN ×2 (13:20→18:30)
--- NOTE | 2022-06-30 15:06 | Progress Note ---
Subjective Date Seen by a Provider: Jun 30, 2022 Time Seen by a Provider: 10:00 Subjective/Events-last exam doing better. passing lots of flatus but no BM. tolerating diet. pain better controlled and ambulating better. Objective Exam Vital Signs Date Time Temp Pulse Resp B/P (MAP) Pulse Ox O2 Delivery O2 Flow Rate FiO2 06/30/22 11:14 36.6 100 18 128/75 (92) 98 Nasal Cannula 3.00 06/30/22 09:44 95 Nasal Cannula 3.00 06/30/22 07:48 37.2 100 18 135/71 (92) 99 Nasal Cannula 3.00 06/30/22 04:00 37.1 100 16 134/74 (94) 98 Nasal Cannula 3.00 06/30/22 00:00 36.7 101 14 115/57 (76) 92 Nasal Cannula 3.00 06/29/22 21:57 96 Nasal Cannula 3.00 06/29/22 20:00 Nasal Cannula 3.00 06/29/22 19:58 37.4 112 18 131/88 (102) 97 Nasal Cannula 1.00 06/29/22 18:11 94 Nasal Cannula 2.00 06/29/22 16:27 37.1 116 18 167/86 (113) 94 Nasal Cannula 1.00 I & O 06/30/22 07:00 Intake Total 2270 ml Output Total 875 ml Balance 1395 ml Capillary Refill : General Appearance: No Apparent Distress HEENT: PERRL/EOMI Neck: Full Range of Motion Respiratory: Decreased Breath Sounds, Wheezing Cardiovascular: Regular Rate, Rhythm Gastrointestinal: normal bowel sounds, soft, distended, tenderness Extremity: Normal Capillary Refill Neurologic/Psychiatric: Alert, Oriented x3 Skin: Normal Color Lymphatic: No Adenopathy Results Lab Laboratory Tests 06/30/22 04:23: White Blood Count 16.0H, Red Blood Count 4.23, Hemoglobin 8.8L, Hematocrit 29L, Mean Corpuscular Volume 69L, Mean Corpuscular Hemoglobin 21L, Mean Corpuscular Hemoglobin Concent 30L, Red Cell Distribution Width 17.0H, Platelet Count 457H, Mean Platelet Volume 9.8, Immature Granulocyte % (Auto) 1, Neutrophils (%) (Auto) 63, Lymphocytes (%) (Auto) 12, Monocytes (%) (Auto) 14H, Eosinophils (%) (Auto) 10, Basophils (%) (Auto) 0, Neutrophils # (Auto) 10.2H, Lymphocytes # (Auto) 2.0, Monocytes # (Auto) 2.2H, Eosinophils # (Auto) 1.6H, Basophils # (Auto) 0.1, Immature Granulocyte # (Auto) 0.1, Sodium Level 138, Potassium Level 3.8, Chloride Level 94L, Carbon Dioxide Level 32, Anion Gap 12, Blood Urea Nitrogen 6L, Creatinine 0.60, Estimat Glomerular Filtration Rate 106, BUN/Creatinine Ratio 10, Glucose Level 104, Calcium Level 8.7 Microbiology 06/26/22 Urine Culture - Final, Complete NO GROWTH 06/24/22 MRSA Screen - Final, Complete MRSA not isolated Assessment/Plan Assessment/Plan Assess & Plan/Chief Complaint s/p laparoscopic transverse colon resection secondary metastatic near obstructing colon cancer. increase ambulation. advance to regular diet. cont abx for pneumonia. start miralax. await BM then home soon. HELENE PORTER MD Jun 30, 2022 15:06
[2022-06-30 16:05] VITALS: BP 135/72
[2022-06-30] MEDS: METOCLOPRAMIDE INJ 10 MG/2 ML (REGLAN) IV PRN ×2 (18:30→22:48)
[2022-06-30 19:27] VITALS: BP 141/65
[2022-06-30] MEDS: diphenhydrAMINE 50 MG/ML INJ (BENADRYL) IVP PRN (20:38)
[2022-06-30] MEDS ORDERED: MELATONIN 3 MG TABLET PO PRN (21:15)
[2022-06-30] MEDS ORDERED: IBUPROFEN TABLET 200 MG TAB PO PRN (21:15)
[2022-07-01] VITALS (7 sets, daily range): BP systolic 116–154; BP diastolic 60–83
[2022-07-01] MEDS: diphenhydrAMINE 50 MG/ML INJ (BENADRYL) IVP PRN (02:41)
[2022-07-01] MEDS: LORazepam ORAL CONCENTRATE 2 MG/ML 30 ML (ATIVAN) SL PRN ×3 (02:41→21:07)
[2022-07-01] MEDS: ONDANSETRON 4 MG/2 ML (SDV) Z0FRAN IV PRN ×2 (02:50→14:36)
[2022-07-01] MEDS: METOCLOPRAMIDE INJ 10 MG/2 ML (REGLAN) IV PRN ×2 (05:03→16:27)
[2022-07-01] MEDS: HYDROmorphone 2 MG/ML VIAL (DILAUDID) IV PRN (05:05)
[2022-07-01] MEDS: RT-ALBUTEROL HFA 8.5 GM INHALER IH SCH ×2 (07:33→21:44)
[2022-07-01] MEDS: HYDROcodone/APAP 7.5 MG/325 MG (LORTAB, LORCET PLUS) TABLET PO PRN ×3 (08:27→20:26)
[2022-07-01] MEDS: SENNA W/DOCUSATE (SENOKOT S) TABLET PO SCH (09:38)
[2022-07-01] MEDS: polyethylene glycoL POWDER 17 GM (MIRALAX) PACK PO SCH ×2 (09:39→20:25)
[2022-07-01] MEDS: METOCLOPRAMIDE INJ 10 MG/2 ML (REGLAN) IVP SCH ×2 (09:40→20:25)
[2022-07-01] MEDS: ENOXAPARIN INJECTION 30 MG/0.3 ML SYR SC SCH ×2 (09:40→20:25)
[2022-07-01] MEDS: PANTOPRAZOLE 40 MG (PROTONIX) VIAL IV SCH ×2 (09:40→20:25)
--- NOTE | 2022-07-01 12:59 | Diagnostic Imaging Report ---
Indication: Vomiting. Post colon surgery. FINDINGS: PA and lateral views. The lungs are well-aerated and free of infiltrates. The heart is not enlarged. No pulmonary edema or hilar adenopathy. Central line via left subclavian tip in the superior vena cava region appears normal. IMPRESSION: Normal PA and lateral chest. Dictated by: Dictated on workstation # [id number]
--- NOTE | 2022-07-01 12:59 | Diagnostic Imaging Report ---
Indication: Post colon surgery with nausea and vomiting. Comparison with CT scan abdomen 04/13/2022. FINDINGS: There is a drain overlying the left upper quadrant. There is a distended stomach with air-fluid level. Small bowel is not dilated. Colon shows very little stool or gas. There is some gas to the rectum. IMPRESSION: Upright and supine abdomen showing no evidence of free air. The distended stomach containing air-fluid level. Dictated by: Dictated on workstation # [id number]
--- NOTE | 2022-07-01 15:00 | Progress Note ---
Subjective Date Seen by a Provider: Jul 01, 2022 Time Seen by a Provider: 13:30 Subjective/Events-last exam Patient seen with Dr. Hudson. Patient walking around room and then sits in bed upon entering the room. She reports continue abdominal pain. Having episodes of nausea with yellow/brown emesis. Reports has not ate much today. Reports had small stool this morning. Objective Exam Vital Signs Date Time Temp Pulse Resp B/P (MAP) Pulse Ox O2 Delivery O2 Flow Rate FiO2 07/01/22 11:43 37.0 114 20 154/77 (102) 92 Room Air 07/01/22 07:41 36.3 106 20 129/60 (83) 96 Nasal Cannula 3.00 07/01/22 07:34 98 Nasal Cannula 3.00 07/01/22 04:01 37.7 93 20 122/75 (91) 98 Nasal Cannula 3.00 07/01/22 00:13 37.3 98 18 131/83 (99) 97 Nasal Cannula 3.00 06/30/22 20:17 Nasal Cannula 3.00 06/30/22 19:27 37.2 102 16 141/65 (90) 96 Nasal Cannula 3.00 06/30/22 19:26 Nasal Cannula 2.00 06/30/22 16:05 37.1 115 16 135/72 (93) 95 Nasal Cannula 3.00 I & O 07/01/22 07:00 Intake Total 1760 ml Output Total 990 ml Balance 770 ml Capillary Refill : General Appearance: No Apparent Distress, WD/WN Neck: Normal Inspection, Supple Respiratory: No Accessory Muscle Use, No Respiratory Distress Gastrointestinal: normal bowel sounds, soft, tenderness, other (AFTAB drain with minimal SS drainage) Extremity: Normal Inspection, Normal Range of Motion Neurologic/Psychiatric: Alert, Oriented x3 Skin: Normal Color, Warm/Dry, Other (Abdominal incisions C/D/I) Results Lab Microbiology 06/26/22 Urine Culture - Final, Complete NO GROWTH 06/24/22 MRSA Screen - Final, Complete MRSA not isolated Assessment/Plan Assessment/Plan Assess & Plan/Chief Complaint A 57 year old female who is S/P laparoscopic transverse colon resection secondary metastatic near obstructing colon cancer. increase ambulation. regular diet. cont abx for pneumonia. start miralax. await BM then home soon. Will add phenergan for nausea Ok to DC AFTAB drain ESE PAEZ [employer] Jul 01, 2022 15:00
[2022-07-01] MEDS: PROMETHAZINE INJ 25 MG/ML (PHENERGAN) AMP IVP PRN (22:59)
[2022-07-02] MEDS: HYDROcodone/APAP 7.5 MG/325 MG (LORTAB, LORCET PLUS) TABLET PO PRN ×3 (00:26→16:35)
[2022-07-02] MEDS: HALOPERIDOL 5 MG/ML (HALDOL) VIAL IM PRN (00:33)
[2022-07-02] MEDS: METOCLOPRAMIDE INJ 10 MG/2 ML (REGLAN) IV PRN ×3 (03:56→16:34)
[2022-07-02 04:11] VITALS: BP 125/75
[2022-07-02] MEDS: ONDANSETRON 4 MG/2 ML (SDV) Z0FRAN IV PRN ×2 (06:24→11:35)
[2022-07-02] MEDS: RT-ALBUTEROL HFA 8.5 GM INHALER IH SCH ×2 (07:16→22:48)
[2022-07-02 07:34] VITALS: BP 124/65
[2022-07-02] MEDS: METOCLOPRAMIDE INJ 10 MG/2 ML (REGLAN) IVP SCH ×2 (08:18→20:05)
[2022-07-02] MEDS: HYDROmorphone 2 MG/ML VIAL (DILAUDID) IV PRN ×4 (08:18→23:51)
[2022-07-02] MEDS: PANTOPRAZOLE 40 MG (PROTONIX) VIAL IV SCH ×2 (08:21→20:00)
[2022-07-02] MEDS: polyethylene glycoL POWDER 17 GM (MIRALAX) PACK PO SCH ×2 (08:22→20:06)
[2022-07-02] MEDS: SENNA W/DOCUSATE (SENOKOT S) TABLET PO SCH (08:22)
[2022-07-02] MEDS: ENOXAPARIN INJECTION 30 MG/0.3 ML SYR SC SCH ×2 (08:26→20:02)
--- NOTE | 2022-07-02 08:43 | Progress Note ---
Subjective Date Seen by a Provider: Jul 02, 2022 Time Seen by a Provider: 08:15 Subjective/Events-last exam Patient seen and reports doing better this morning. Still having episodes of nausea and vomiting. Still liquid yellowish-brown liquid. Does report that she tried some food and liquids. She reports that she has been ambulating more. Had small bowel movement this morning. Reports having heartburn. Objective Exam Vital Signs Date Time Temp Pulse Resp B/P (MAP) Pulse Ox O2 Delivery O2 Flow Rate FiO2 07/02/22 07:34 37.4 107 18 124/65 (84) 98 Nasal Cannula 3.00 07/02/22 07:16 96 Nasal Cannula 3.00 07/02/22 04:11 36.5 110 18 125/75 (92) 100 Nasal Cannula 3.00 07/01/22 23:49 37.0 123 18 149/80 (103) 97 Nasal Cannula 3.00 07/01/22 20:40 Nasal Cannula 3.00 07/01/22 19:53 37.2 126 17 116/71 (86) 89 Room Air 07/01/22 15:30 37.5 108 18 143/72 (95) 96 Nasal Cannula 3.00 07/01/22 11:43 37.0 114 20 154/77 (102) 92 Room Air I & O 07/02/22 07:00 Intake Total 1560 ml Output Total 630 ml Balance 930 ml Capillary Refill : General Appearance: No Apparent Distress, WD/WN Neck: Normal Inspection, Supple Respiratory: No Accessory Muscle Use, No Respiratory Distress Gastrointestinal: normal bowel sounds, soft, distended (mild), tenderness Extremity: Normal Inspection, Normal Range of Motion Neurologic/Psychiatric: Alert, Oriented x3 Skin: Normal Color, Warm/Dry, Other (Abdomial incisions C/D/I) Results Lab Microbiology 06/26/22 Urine Culture - Final, Complete NO GROWTH 06/24/22 MRSA Screen - Final, Complete MRSA not isolated Assessment/Plan Assessment/Plan Assess & Plan/Chief Complaint A 57 year old female who is S/P laparoscopic transverse colon resection seco ndary metastatic near obstructing colon cancer. increase ambulation. regular diet. cont abx for pneumonia. start miralax. Will add phenergan for nausea Ok to DC AFTAB drain Once patients vomiting has stopped and she had significant bowel movement, then she may be DC'd home ESE PAEZ APRN Jul 02, 2022 08:43
[2022-07-02] MEDS: LORazepam ORAL CONCENTRATE 2 MG/ML 30 ML (ATIVAN) SL PRN ×2 (08:49→21:22)
[2022-07-02] MEDS: PROMETHAZINE INJ 25 MG/ML (PHENERGAN) AMP IVP PRN ×2 (09:46→23:52)
[2022-07-02] MEDS ORDERED: SODIUM CHLORIDE FLUSH 10 ML IVP PRN (09:47)
[2022-07-02 12:09] VITALS: BP 149/79
[2022-07-02] MEDS: diphenhydrAMINE 50 MG/ML INJ (BENADRYL) IVP PRN ×2 (12:56→20:04)
[2022-07-02 15:49] VITALS: BP 132/83
[2022-07-02 19:42] VITALS: BP 139/80
[2022-07-03 00:05] VITALS: BP 115/62
[2022-07-03 03:51] VITALS: BP 120/76
[2022-07-03] MEDS: METOCLOPRAMIDE INJ 10 MG/2 ML (REGLAN) IV PRN (05:35)
[2022-07-03] MEDS: HYDROcodone/APAP 7.5 MG/325 MG (LORTAB, LORCET PLUS) TABLET PO PRN (05:35)
--- NOTE | 2022-07-03 08:20 | Progress Note - Surgery ---
STANTON REESE 07/03/22 0820: Subjective Date Seen by a Provider: Jul 03, 2022 Time Seen by a Provider: 07:20 Subjective/Events-last exam Patient has had 4 episodes of emesis since last night. When she went to grab a bucket to vomit she tore out her central line on her left side. She has had 2 BMs since last evening and endorses having "a lot of gas". She is voiding and ambulating independently. She does not have an IS. She says her abdominal pain is a 9/10 but is better now than it was last night. Review of Systems General: Chills; No Night Sweats; Fatigue HEENT: Head Aches; No Dysphasia; Sore Throat (from the vomiting) Pulmonary: Dyspnea; No Cough Cardiovascular: Chest Pain (new this AM, located on left chest but doesn't radiate), Lt Headedness Gastrointestinal: Nausea, Vomiting (green/brown vomitus), Abdominal Pain; No: Diarrhea, Constipation Genitourinary: No Dysuria, No Hematuria Musculoskeletal: leg pain; No: neck pain, back pain Neurological: Weakness; No: Confusion Objective Exam Vital Signs Date Time Temp Pulse Resp B/P (MAP) Pulse Ox O2 Delivery O2 Flow Rate FiO2 07/03/22 03:51 37.8 101 18 120/76 (91) 100 Nasal Cannula 3.00 07/03/22 00:05 37.1 105 18 115/62 (79) 98 Nasal Cannula 3.00 07/02/22 19:42 37.4 112 22 139/80 (99) 98 Nasal Cannula 3.00 07/02/22 15:49 37.0 111 18 132/83 (99) 97 Nasal Cannula 3.00 07/02/22 12:09 37.5 120 18 149/79 (102) 98 Nasal Cannula 3.00 I & O 07/03/22 07:00 Intake Total 2170 ml Output Total 1760 ml Balance 410 ml Capillary Refill : General Appearance: Chronically ill, Mild Distress HEENT: PERRL/EOMI, Other (edentulous) Neck: Non Tender, Supple Respiratory: No Respiratory Distress, Accessory Muscle Use, Wheezing (insiration and expiration) Cardiovascular: No Murmur, Tachycardia Peripheral Pulses: 2+ Dorsalis Pedis (R), 2+ Left Dors-Pedis (L), 2+ Radial Pulses (R), 2+ Radial Pulses (L) Gastrointestinal: normal bowel sounds, soft, tenderness (epigastric, LUQ), hernia (supraumbilical, tender to palpation), other (dressing where AFTAB was andrey suzy drain had minimal amout of serous fluid, RN changed at 0830) Extremity: No Pedal Edema, Calf Tenderness (b/l) Neurologic/Psychiatric: Alert, Oriented x3 Skin: Tattoos/Piercings, Other (vitiligo on anterior neck, diffusely on upper back) Lymphatic: No Adenopathy (cervical) Results Lab Microbiology 06/26/22 Urine Culture - Final, Complete NO GROWTH 06/24/22 MRSA Screen - Final, Complete MRSA not isolated Assessment/Plan Assessment/Plan Assessment/Plan S/P laparoscopic transverse colon resection Secondary metastatic near obstructing colon cancer. N/V Ventral hernia Patient is having BMs. Lortab for pain control. Continue phenergan and zofran prn for N/V. Encouraged the patient to ambulate as much as she can tolerate. Consider CT abdomen for new ventral hernia. MEKHI COWAN DO 07/03/22 1125: Subjective Time Seen by a Provider: 10:42 Subjective/Events-last exam Pt seen and examined, complained of pain above umbilicus and acid taste in her mouth. States she is vomiting more, she is ambulating by herself. Nurse states everytime she eats a solid meal she vomits. Review of Systems General: Chills; No Night Sweats; Fatigue HEENT: Head Aches, Sore Throat (from the vomiting) Pulmonary: Dyspnea; No Cough Cardiovascular: Chest Pain (new this AM, located on left chest but doesn't radiate), Lt Headedness Gastrointestinal: Nausea, Vomiting (green/brown vomitus); No: Diarrhea, Constipation Genitourinary: No Dysuria, No Hematuria Musculoskeletal: leg pain; No: back pain Neurological: Weakness; No: Confusion Objective Exam General Appearance: Anxious, Chronically ill, Mild Distress HEENT: PERRL/EOMI, Other (edentulous) Respiratory: No Respiratory Distress, Accessory Muscle Use, Wheezing (insiration and expiration) Cardiovascular: No Murmur, Tachycardia Gastrointestinal: soft, distended, tenderness (epigastric, LUQ), hernia (?? hernia supraumbilical, tender to palpation and there is 4cm area of erythema), other (dressing where AFTAB was placed drain had minimal amout of serous fluid, RN changed at 0830) Extremity: No Pedal Edema, Calf Tenderness (b/l) Neurologic/Psychiatric: Alert, Oriented x3 Skin: Tattoos/Piercings, Other (vitiligo on anterior neck, diffusely on upper back) Assessment/Plan Assessment/Plan Assessment/Plan Cellulitis - IV Ancef ?? Hernia - ordering a CT abd/pelvis Anxiety S/P laparoscopic transverse colon resection - secondary to metastatic near obstructing colon cancer. N/V Patient is having BMs. Lortab for pain control, will stop Fentanyl. WIll d/c Haldol and recommend using the Ativan for anxiety. Continue phenergan and zofran prn for N/V. Encouraged the patient to ambulate as much as she can tolerate and will get her an IS. Consider CT abdomen for new bulge and erythema at supra-umbilical site. Supervisory-Addendum Brief Verification & Attestation Participated in pt care: history, MDM, physical Personally performed: exam, history, MDM, supervision of care Care discussed with: Medical Student Procedures: n/a Verification and Attestation of Medical Student E/M Service A medical student performed and documented this service. I then reviewed and verified all information documented by the medical student and made modifications to such information, when appropriate. I personally performed a physical exam, medical decision making and then discussed any differences between the notes and made revisions as necessary to create one note. Mekhi Cowan , 07/03/22 , 11:25 STANTON REESE Jul 03, 2022 08:20 MEKHI COWAN DO Jul 03, 2022 11:25
[2022-07-03] MEDS: RT-ALBUTEROL HFA 8.5 GM INHALER IH SCH ×2 (08:34→18:52)
[2022-07-03 08:37] VITALS: BP 121/71
[2022-07-03] MEDS: LORazepam ORAL CONCENTRATE 2 MG/ML 30 ML (ATIVAN) SL PRN ×2 (08:59→20:26)
[2022-07-03] MEDS: ENOXAPARIN INJECTION 30 MG/0.3 ML SYR SC SCH ×2 (08:59→20:26)
[2022-07-03] MEDS: PANTOPRAZOLE 40 MG (PROTONIX) VIAL IV SCH ×2 (08:59→20:26)
[2022-07-03] MEDS: SCOPOLAMINE PATCH REMOVAL TP SCH (09:00)
[2022-07-03] MEDS: polyethylene glycoL POWDER 17 GM (MIRALAX) PACK PO SCH ×2 (09:00→20:57)
[2022-07-03] MEDS: METOCLOPRAMIDE INJ 10 MG/2 ML (REGLAN) IVP SCH ×2 (09:00→20:26)
[2022-07-03] MEDS: SENNA W/DOCUSATE (SENOKOT S) TABLET PO SCH (09:00)
[2022-07-03 11:31] VITALS: BP 129/82
[2022-07-03] MEDS ORDERED: RT-ALBUTEROL SULF 2.5 MG/3 ML PRE-MIX VIAL ONE (11:41)
[2022-07-03] MEDS: RT-ALBUTEROL SULF 2.5 MG/3 ML PRE-MIX VIAL INH PRN ×2 (11:43→18:50)
--- NOTE | 2022-07-03 12:40 | Progress Note ---
Standard Progress Note Progress Notes/Assess & Plan Time Seen by a Provider: 12:34 Progress/Assessment & Plan I reviewed the CT and pt has an umbilical and incisional hernia with inflammatio n; possibly just normal after surgery. There is no entrapped bowel. She also appears to have at least an ileus with possible small bowel obstruction. She would benefit from NGT to empty her stomach which has a lot of fluid/contents in it. Will ask her to allow NGT placement. I will also make her NPO. Final Diagnosis Ileus vs SBO Cellulitis Ventral/Incisional hernia Umbilical hernia - incarcerated fat MEKHI MCBRIDE DO Jul 03, 2022 12:40
--- NOTE | 2022-07-03 13:10 | Diagnostic Imaging Report ---
PROCEDURE: CT abdomen and pelvis without contrast. TECHNIQUE: Multiple contiguous axial images were obtained through the abdomen and pelvis without the use of intravenous contrast. Auto Exposure Controls were utilized during the CT exam to meet ALARA standards for radiation dose reduction. INDICATION: Incisional bulge with erythema. COMPARISON: CT abdomen and pelvis 04/13/2022. FINDINGS: Lung bases are clear. Multiple low-attenuation regions in the liver are incompletely characterized on this noncontrast exam but appear generally stable compared to the prior. There are several dilated small bowel loops and fluid-filled dilated stomach. There appears to be a focal transition point to decompressed small bowel in the left upper quadrant, best seen on coronal image 41. New transverse colon anastomosis. Ill-defined edema in the subcutaneous tissues of the anterior midline abdominal wall just above the level of the umbilicus. There is a small fat-containing anterior abdominal wall hernia above the level of the umbilicus in the inflammatory change which is new compared to the prior. No free intraperitoneal air or fluid. Moderate colonic diverticulosis. The gallbladder, pancreas, spleen, adrenals, kidneys, collecting systems, and bladder are unremarkable. Moderate spondylotic changes in the lumbar spine. No acute osseous findings. IMPRESSION: 1. Proximal dilated small bowel loops and dilated stomach. There appears to be a focal transition point, suspicious for a small bowel obstruction. This is best seen on coronal image 41 and is located in the left mid to upper quadrant. 2. Interval post operative changes including a transverse colon anastomosis. There is ill-defined nonspecific edema in the subcutaneous tissues of the anterior abdominal wall above the level of the umbilicus which may be post operative. There is no discrete or organized fluid collection. 3. Metastatic disease in the liver is poorly characterized on this noncontrast exam but is likely stable. 4. Small fat-containing anterior abdominal wall hernia above the inflammatory changes in the anterior subcutaneous tissues is new since the prior exam. This measures up to 2.5 cm. Dictated by: Dictated on workstation # [id number]
[2022-07-03] MEDS: HYDROmorphone 2 MG/ML VIAL (DILAUDID) IV PRN ×3 (13:22→20:42)
[2022-07-03] MEDS: PROMETHAZINE INJ 25 MG/ML (PHENERGAN) AMP IVP PRN (13:23)
[2022-07-03] MEDS: ceFAZolin INJECTION 500 MG in NS (IVPB) 50 ML IV SCH ×2 (14:33→21:34)
--- NOTE | 2022-07-03 14:44 | Diagnostic Imaging Report ---
EXAM: CHEST 1 VIEW, AP/PA ONLY INDICATION: NG tube placement. COMPARISON: 06/28/2022. FINDINGS: NG tube tip and side-port in the stomach. Normal heart size and central pulmonary vascularity. Lungs are clear. No pleural effusion or pneumothorax. No acute osseous findings. IMPRESSION: 1. NG tube tip and side-port in stomach. 2. No acute cardiopulmonary findings. Dictated by: Dictated on workstation # [id number]
[2022-07-03 15:47] VITALS: BP 129/79
[2022-07-03] MEDS ORDERED: CHLORASEPTIC SPRAY 177 ML LIQUID MC PRN (17:30)
[2022-07-03] MEDS ORDERED: CHLORASEPTIC LOZENGE MM PRN (17:30)
[2022-07-03] MEDS: NS IV 1000 ML 1,000 ML IV SCH (18:38)
[2022-07-03 20:02] VITALS: BP 137/82
[2022-07-03] MEDS: diphenhydrAMINE 50 MG/ML INJ (BENADRYL) IVP PRN (20:41)
[2022-07-03] MEDS: ONDANSETRON 4 MG/2 ML (SDV) Z0FRAN IV PRN (20:50)
[2022-07-03] MEDS: CEPACOL SORE THROAT-COUGH LOZENGE PO PRN (22:01)
[2022-07-04] VITALS: BP 110/78
[2022-07-04] MEDS: NS IV 1000 ML 1,000 ML IV SCH ×4 (01:23→15:35)
[2022-07-04] MEDS: PROMETHAZINE INJ 25 MG/ML (PHENERGAN) AMP IVP PRN ×2 (01:24→11:16)
[2022-07-04] MEDS: HYDROmorphone 2 MG/ML VIAL (DILAUDID) IV PRN ×8 (01:24→20:58)
[2022-07-04] MEDS: CEPACOL SORE THROAT-COUGH LOZENGE PO PRN (02:08)
[2022-07-04 03:50] VITALS: BP 126/83
[2022-07-04] MEDS: ceFAZolin INJECTION 500 MG in NS (IVPB) 50 ML IV SCH ×3 (06:31→21:02)
[2022-07-04] MEDS ORDERED: CEPACOL SORE THROAT-COUGH LOZENGE MM PRN (07:30)
[2022-07-04] MEDS: polyethylene glycoL POWDER 17 GM (MIRALAX) PACK PO SCH ×2 (07:42→20:59)
[2022-07-04] MEDS: SENNA W/DOCUSATE (SENOKOT S) TABLET PO SCH (07:42)
[2022-07-04 07:59] VITALS: BP 116/79
--- NOTE | 2022-07-04 08:07 | Progress Note - Surgery ---
STANTON REESE 07/04/22 0807: Subjective Date Seen by a Provider: Jul 04, 2022 Time Seen by a Provider: 06:50 Subjective/Events-last exam Patient appears to be doing better today. She consented to getting the NG tube placed and she said that has helped with her nausea. She has not vomited since the NG was placed. She still endorses 9/10 abdominal pain and says that it is the same as yesterday. She has only ambulated to the restroom since NG placement. There was no IS in her room this AM. She has been voiding, she has not had a BM since yesterday morning, she does endorse having flatus. Review of Systems HEENT: Sore Throat (from NGT placement) Pulmonary: No Dyspnea; Cough (since NGT placement) Cardiovascular: Chest Pain (she claimed chest pain, I pressed on epigastric area and asked if that is where the chest pain was and she said yes); No: Lt Hea dedness Gastrointestinal: Abdominal Pain; No: Nausea, Vomiting Objective Exam Vital Signs Date Time Temp Pulse Resp B/P (MAP) Pulse Ox O2 Delivery O2 Flow Rate FiO2 07/04/22 07:59 37.1 112 20 116/79 (91) 94 Nasal Cannula 3.00 07/04/22 03:50 37.5 104 18 126/83 (97) 97 Nasal Cannula 3.00 07/04/22 00:00 37.2 120 18 110/78 (89) 97 Nasal Cannula 3.00 07/03/22 20:02 37.1 126 18 137/82 (100) 100 Nasal Cannula 3.00 07/03/22 20:00 Nasal Cannula 3.00 07/03/22 18:50 98 Nasal Cannula 3.00 07/03/22 15:47 36.8 116 16 129/79 (96) 98 Nasal Cannula 3.00 07/03/22 11:43 96 Nasal Cannula 3.00 07/03/22 11:31 37.7 109 20 129/82 (98) 99 Nasal Cannula 3.00 07/03/22 09:28 96 Nasal Cannula 3.00 07/03/22 08:37 37.0 108 20 121/71 (88) 97 Nasal Cannula 3.00 I & O 07/04/22 07:00 Intake Total 550 ml Output Total 950 ml Balance -400 ml Capillary Refill : General Appearance: Chronically ill, Mild Distress HEENT: PERRL/EOMI, Other (NGT in left nares) Neck: Non Tender, Supple Respiratory: No Accessory Muscle Use, No Respiratory Distress, Wheezing (insiration and expiration) Cardiovascular: No Murmur, Tachycardia Peripheral Pulses: 2+ Dorsalis Pedis (R), 2+ Left Dors-Pedis (L), 2+ Radial Pulses (R), 2+ Radial Pulses (L) Gastrointestinal: soft, distended, tenderness (epigastric, LUQ, LLQ), hernia (?? hernia supraumbilical, tender to palpation and there is 4cm area of erythema), other (dressing where AFTAB was placed drain had minimal amout of serous fluid) Extremity: Non Tender, No Calf Tenderness, No Pedal Edema Neurologic/Psychiatric: Alert, Oriented x3 Skin: Warm/Dry, Tattoos/Piercings, Other (vitiligo on anterior neck, diffusely on upper back) Lymphatic: No Adenopathy (cervical) Results Lab Microbiology 06/26/22 Urine Culture - Final, Complete NO GROWTH 06/24/22 MRSA Screen - Final, Complete MRSA not isolated Assessment/Plan Assessment/Plan Assessment/Plan Cellulitis Incisional Hernia Anxiety S/P laparoscopic transverse colon resection - secondary to metastatic near obstructing colon cancer. N/V- last episode yesterday afternoon Continue IV cefazolin. IV dilaudid for pain control 0.5mg q2H PRN. Patient not complaining of nausea this AM but continue phenergan and zofran PRN. Encouraged patient to ambulate to chair as tolerated. Keep NGT in place. Ativan PRN for anxiety. Continue IV fluids, maintain NPO. XAVIER COWAN DO 07/04/22 1406: Subjective Time Seen by a Provider: 12:51 Subjective/Events-last exam Pt seen and examined, she has a lot of complaints today. She isn't vomiting and hasn't since NGT placed, but wants to eat ice cream and milk. While I was talking to her she never complained of pain or appeared to be in pain. Stated large flatus and 2 very small BMs. She also complains about sore throat from NGT. She was talking about how everyone in the hospital was calling her dumb, when she was stating something was wrong because of her emesis. She is very angry at everybody. 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 Review of Systems Pulmonary: No Dyspnea; Cough (since NGT placement) Cardiovascular: Chest Pain (she claimed chest pain, I pressed on epigastric area and asked if that is where the chest pain was and she said yes) Gastrointestinal: Abdominal Pain; No: Nausea, Vomiting Objective Exam General Appearance: Chronically ill, Mild Distress HEENT: PERRL/EOMI, Other (NGT in left nares) Respiratory: No Accessory Muscle Use, No Respiratory Distress, Wheezing (insiration and expiration) Cardiovascular: No Murmur, Tachycardia Gastrointestinal: soft, distended, tenderness (epigastric, LUQ, LLQ), hernia (?? hernia supraumbilical, tender to palpation and there is 4cm area of erythema), other (dressing where AFTAB was placed drain had minimal amout of serous fluid, abdomen looks about same as yesterday - still red) Extremity: Non Tender, No Calf Tenderness, No Pedal Edema Neurologic/Psychiatric: Alert, Oriented x3 Skin: Tattoos/Piercings, Other (vitiligo on anterior neck, diffusely on upper back) Assessment/Plan Assessment/Plan Assessment/Plan Cellulitis Incisional Hernia Anxiety S/P laparoscopic transverse colon resection - secondary to metastatic near obstructing colon cancer. N/V- last episode yesterday afternoon Continue IV cefazolin. IV dilaudid for pain control 0.5mg q2H PRN. Patient not complaining of nausea this AM but continue phenergan and zofran PRN. Encouraged patient to ambulate to chair as tolerated. Keep NGT in place. Ativan PRN for anxiety. Continue IV fluids, maintain NPO. I spoke with pt for about 20 minutes trying to explain about the ileus vs. SBO and why she couldn't eat. I told her we would try to take care of all her complaints, some things we couldn't do (like eat) and apologized for past treatment; unfortunately I can't do anything about that. Supervisory-Addendum Brief Verification & Attestation Participated in pt care: history, MDM, physical Personally performed: exam, history, MDM, supervision of care Care discussed with: Medical Student Procedures: n/a Verification and Attestation of Medical Student E/M Service A medical student performed and documented this service. I then reviewed and verified all information documented by the medical student and made modifications to such information, when appropriate. I personally performed a physical exam, medical decision making and then discussed any differences between the notes and made revisions as necessary to create one note. Xavier Cowan , 07/04/22 , 14:09 STANTON REESE Jul 04, 2022 08:07 XAVIER COWAN DO Jul 04, 2022 14:06
[2022-07-04] MEDS: RT-ALBUTEROL SULF 2.5 MG/3 ML PRE-MIX VIAL INH SCH ×2 (08:16→21:41)
[2022-07-04] MEDS: PANTOPRAZOLE 40 MG (PROTONIX) VIAL IV SCH ×2 (08:27→20:54)
[2022-07-04] MEDS: METOCLOPRAMIDE INJ 10 MG/2 ML (REGLAN) IVP SCH ×2 (08:28→20:55)
[2022-07-04] MEDS: ENOXAPARIN INJECTION 30 MG/0.3 ML SYR SC SCH ×2 (08:29→20:55)
[2022-07-04] MEDS: LORazepam ORAL CONCENTRATE 2 MG/ML 30 ML (ATIVAN) SL PRN ×2 (10:46→21:00)
[2022-07-04 11:43] VITALS: BP 117/77
[2022-07-04] MEDS ORDERED: LIDOCAINE 2% VISCOUS 15 ML UDC PO SCH (13:30)
[2022-07-04] MEDS ORDERED: LIDOCAINE 2% VISCOUS 15 ML UDC PO PRN (14:00)
[2022-07-04 15:49] VITALS: BP 110/56
[2022-07-04 20:28] VITALS: BP 112/59
[2022-07-05 00:02] VITALS: BP 109/67
[2022-07-05 03:42] VITALS: BP 129/67
[2022-07-05] MEDS: ceFAZolin INJECTION 500 MG in NS (IVPB) 50 ML IV SCH ×2 (05:41→14:10)
[2022-07-05] MEDS: METOCLOPRAMIDE INJ 10 MG/2 ML (REGLAN) IV PRN (05:43)
[2022-07-05] MEDS: NS IV 1000 ML 1,000 ML IV SCH ×3 (05:43→16:12)
[2022-07-05] MEDS: diphenhydrAMINE 50 MG/ML INJ (BENADRYL) IVP PRN (05:44)
[2022-07-05] MEDS: RT-ALBUTEROL SULF 2.5 MG/3 ML PRE-MIX VIAL INH SCH (07:27)
--- NOTE | 2022-07-05 07:50 | Progress Note - Surgery ---
STANTON REESE 07/05/22 0750: Subjective Date Seen by a Provider: Jul 05, 2022 Time Seen by a Provider: 07:05 Subjective/Events-last exam I spoke with RN before entering the room. RN reported that the patient has been in increased pain and has told her consistently that her abdominal pain is a 10/10. She also pulled out her NG tube last night. When I entered the room she told me the only complaint she had was that she was hungry. She said her abdominal pain was a max 4/10 and was much better. She said her throat was no longer sore because the tube was out. She endorsed having 2 small BMs and frequent flatus. She asked again to have some ice cream with milk, she thinks if she gets that she will have a large BM and be able to go home. She is ambulating freely after pulling out NG tube. Review of Systems Pulmonary: No Dyspnea, No Cough Cardiovascular: No: Chest Pain, Lt Headedness Gastrointestinal: Abdominal Pain; No: Nausea, Vomiting, Melena Objective Exam Vital Signs Date Time Temp Pulse Resp B/P (MAP) Pulse Ox O2 Delivery O2 Flow Rate FiO2 07/05/22 07:28 100 Nasal Cannula 3.00 07/05/22 03:42 36.5 105 18 129/67 (87) 97 Nasal Cannula 3.00 07/05/22 00:02 37.3 102 18 109/67 (81) 97 Nasal Cannula 3.00 07/04/22 21:42 97 Nasal Cannula 3.00 07/04/22 20:28 37.1 108 18 112/59 (76) 97 Nasal Cannula 3.00 07/04/22 20:00 Nasal Cannula 3.00 07/04/22 15:49 36.8 104 18 110/56 (74) 99 Nasal Cannula 3.00 07/04/22 11:43 37.6 110 20 117/77 (90) 97 Nasal Cannula 3.00 07/04/22 08:18 98 Nasal Cannula 3.00 07/04/22 08:00 Nasal Cannula 3.00 07/04/22 07:59 37.1 112 20 116/79 (91) 94 Nasal Cannula 3.00 I & O 07/05/22 07:00 Output Total 2700 ml Balance -2700 ml Capillary Refill : General Appearance: No Apparent Distress, Chronically ill HEENT: PERRL/EOMI; No Scleral Icterus (L), No Scleral Icterus (R) Neck: Non Tender, Supple Respiratory: No Accessory Muscle Use, No Respiratory Distress, Wheezing (insiration and expiration) Cardiovascular: No Murmur, Tachycardia Peripheral Pulses: 2+ Dorsalis Pedis (R), 2+ Left Dors-Pedis (L), 2+ Radial Pulses (R), 2+ Radial Pulses (L) Gastrointestinal: soft, guarding (Epigastric, LUQ), tenderness (epigastric, LUQ), hernia (?? hernia supraumbilical, tender to palpation and there is 4cm area of erythema), other ( abdomen looks about same as yesterday - still red) Extremity: Non Tender, No Calf Tenderness, No Pedal Edema Neurologic/Psychiatric: Alert, Oriented x3 Skin: Tattoos/Piercings, Other (vitiligo on anterior neck, diffusely on upper back) Lymphatic: No Adenopathy (cervical) Results Lab Microbiology 06/26/22 Urine Culture - Final, Complete NO GROWTH 06/24/22 MRSA Screen - Final, Complete MRSA not isolated Assessment/Plan Assessment/Plan Assessment/Plan Cellulitis Incisional Hernia Anxiety S/P laparoscopic transverse colon resection - secondary to metastatic near obstructing colon cancer. N/V- last episode 2 days ago Continue IV cefazolin. IV dilaudid for pain control 0.5mg q2H PRN. Patient not complaining of nausea this AM but continue phenergan and zofran PRN. Encouraged patient to ambulate as tolerated. Ativan PRN for anxiety. Continue IV fluids, maintain NPO. Consider placement of tele monitoring after NG tube removal. XAVIER COWAN DO 07/05/22 1706: Subjective Time Seen by a Provider: 16:56 Subjective/Events-last exam Pt seen and examined, states "everything is coming out of the right hole now". Nurse states she talked to Dr. Hudson who said to send her home. She has not had any N/V today and pain is controlled. Review of Systems Pulmonary: No Dyspnea, No Cough Cardiovascular: No: Chest Pain, Palpitations Gastrointestinal: No: Nausea, Vomiting, Abdominal Pain, Melena Objective Exam General Appearance: No Apparent Distress, Chronically ill HEENT: No Scleral Icterus (L), No Scleral Icterus (R) Respiratory: No Accessory Muscle Use, No Respiratory Distress, Wheezing (insiration and expiration) Cardiovascular: Tachycardia Gastrointestinal: guarding (Epigastric, LUQ with deep palpation), tenderness (epigastric, LUQ), hernia (?? hernia supraumbilical, tender to palpation and there is 4cm area of erythema), other ( abdomen looks about same as yesterday - still red) Assessment/Plan Assessment/Plan Assessment/Plan Cellulitis - ??better Incisional Hernia Anxiety S/P laparoscopic transverse colon resection - secondary to metastatic near obstructing colon cancer. N/V- last episode 2 days ago Would d/c home with PO ABX, change to oral pain meds and zofran PRN. Encouraged patient to ambulate as tolerated. Ativan PRN for anxiety. Diet as tolerated. Supervisory-Addendum Brief Verification & Attestation Participated in pt care: history, MDM, physical Personally performed: exam, history, MDM, supervision of care Care discussed with: Medical Student Procedures: n/a Verification and Attestation of Medical Student E/M Service A medical student performed and documented this service. I then reviewed and verified all information documented by the medical student and made modifications to such information, when appropriate. I personally performed a physical exam, medical decision making and then discussed any differences between the notes and made revisions as necessary to create one note. Xavier Cowan , 07/05/22 , 17:06 STANTON REESE Jul 05, 2022 07:50 XAVIER COWAN DO Jul 05, 2022 17:06
[2022-07-05 08:21] VITALS: BP 114/71
[2022-07-05] MEDS ORDERED: NICOTINE 21 MG (NICODERM) PATCH TD SCH (09:00)
[2022-07-05] MEDS: HYDROmorphone 2 MG/ML VIAL (DILAUDID) IV PRN ×2 (09:30→16:18)
[2022-07-05] MEDS: METOCLOPRAMIDE INJ 10 MG/2 ML (REGLAN) IVP SCH (09:30)
[2022-07-05] MEDS: PANTOPRAZOLE 40 MG (PROTONIX) VIAL IV SCH (09:30)
[2022-07-05] MEDS: LORazepam ORAL CONCENTRATE 2 MG/ML 30 ML (ATIVAN) SL PRN (09:43)
[2022-07-05] MEDS: polyethylene glycoL POWDER 17 GM (MIRALAX) PACK PO SCH (09:46)
[2022-07-05] MEDS: ENOXAPARIN INJECTION 30 MG/0.3 ML SYR SC SCH (09:47)
[2022-07-05] MEDS: SENNA W/DOCUSATE (SENOKOT S) TABLET PO SCH (09:47)
[2022-07-05 12:52] VITALS: BP 110/67
[2022-07-05 15:43] VITALS: BP 135/83
[2022-07-05] MEDS: ONDANSETRON 4 MG/2 ML (SDV) Z0FRAN IV PRN (15:51)
[2022-07-05 17:57] VITALS: BP 135/83
[2022-07-06] MEDS ORDERED: NICOTINE PATCH REMOVAL TP SCH (08:59)
--- NOTE | 2022-07-06 13:24 | Physician Query Clarification ---
PQ-Link Path Diagnosis Admission/Discharge Admission Date: Jun 24, 2022 at 09:09 Discharge Date: Jul 05, 2022 at 19:00 Dr. Porter, The medical record reflects the following: Transverse Ca The pathology report findings document: invasive moderately differentiated colon adenocarcinoma with 2 of 9 lymph nodes positive for metastatic adenocarcinoma Question: Do you agree with the pathology report findings of colic lymph node metastasis? Please document a response in Progress Notes or Discharge Summary. 1. Agree with pathological diagnosis of colic lymph node metastasis. 2. No - Do not agree with pathology findings of colic lymph node metastasis. 3. Other, with explanation of the clinical findings. 4. Clinically undetermined, no explanation for the clinical findings. Is is appropriate for a provider to add additional documentation (addenda) to the record to explain the evaluation & care up to 30 days post-discharge. See [facility] and Patient Record Guidelines below. The [facility] Chapter Record of Care, Standard; [id number].01.03.01EP 1: "The hospital has a written policy that required timely entry of information into the medical record." According to [facility] Patient Record Guidelines, ARTICLE XXI. CORRECTIONS AND ADDENDA, Modifications (addenda amendments, corrections and retractions) should be made timely and no later than regulatory requirements for record completion (i.e. 30 days post discharge). Official coding guidelines require coders to query the physician for agreement with pathology findings that occur during the encounter. Coders are not allowed to pull information directly from the path reports. PHYSICIAN RESPONSE Pathology Report Findings: Yes,agree w/path dx as documented In responding to this query, please exercise your independent professional judgment. The purpose of this communication is to more accurately reflect the complexity of your patients condition. The fact that a question is asked does not imply that any particular answer is desired or expected. Thank you for your timely response to this clarification. Requestors name: Ricky THIS PHYSICIAN QUERY FORM IS A PERMANENT PART OF THE MEDICAL RECORD RICKY ARAMBULA Jul 06, 2022 13:24 HELENE PORTER MD Jul 07, 2022 11:22
== END 2022-07-05 19:00 | disposition home or self-care (01) | DRG 329 ==
LOC: 4TH 09:09 → SURG 09:10 → 4TH 14:52
PROVIDERS: ADMIT Surgery; ATTEND Surgery
PROC: 0DBL4ZZ Excision of Transverse Colon, Percutaneous Endoscopic Approach (ICD-10-PCS; principal; 2022-06-24 10:43)
DX: C18.4 Malignant neoplasm of transverse colon (principal); J18.9 Pneumonia, unspecified organism; C78.7 Secondary malignant neoplasm of liver and intrahepatic bile duct; C77.2 Secondary and unspecified malignant neoplasm of intra-abdominal lymph nodes; J98.11 Atelectasis; K56.7 Ileus, unspecified; K56.609 Unspecified intestinal obstruction, unspecified as to partial versus complete obstruction; L03.311 Cellulitis of abdominal wall; J44.9 Chronic obstructive pulmonary disease, unspecified; I10 Essential (primary) hypertension; Z85.6 Personal history of leukemia; K43.2 Incisional hernia without obstruction or gangrene; F41.9 Anxiety disorder, unspecified; F17.200 Nicotine dependence, unspecified, uncomplicated; Z86.73 Personal history of transient ischemic attack (TIA), and cerebral infarction without residual deficits; Z79.82 Long term (current) use of aspirin
CPT/HCPCS: 36415; 71045; 71046; 74019; 74176; 80048; 80053; 81000; 85007; 85025; 85027; 86850; 86900; 86901; 87081; 87088; 94640; 94664; 94760

== ENCOUNTER → 2022-07-12 | Outpatient (CLI) | payer MEDICARE, MEDICAID ==
[~2022-07-12] MED LIST changes: +LEVO-55 PO; +METR-145 PO
--- NOTE | 2022-07-12 15:00 | Diagnostic Imaging Report ---
EXAMINATION: Abdomen 2 view HISTORY: ABDOMINAL PAIN AND COLON CANCER COMPARISON: 07/01/2022 FINDINGS: There is a moderate amount of gas and stool throughout the colon. Nonobstructive bowel gas pattern. No radiopaque foreign body. The lung bases are clear. The osseous structures are intact. IMPRESSION: Moderate stool burden without other acute abnormality in the abdomen. Dictated by: Dictated on workstation # [id number]
== END ==
LOC: RAD 13:55
PROVIDERS: ATTEND Internal Medicine Hematology & Oncology
DX: C18.9 Malignant neoplasm of colon, unspecified (principal)
CPT/HCPCS: 74019

== ENCOUNTER 2022-07-13 16:55 | Emergency (ER) | payer MEDICARE, MEDICAID ==
[~2022-07-13] VITALS: Ht 154.9 cm; Wt 63.5 kg
--- NOTE | 2022-07-13 17:38 | ED Cough/URI ---
General Chief Complaint: Respiratory Problems Stated Complaint: SOB Nursing Triage Note: PT TO RM 9 BY WC WITH COMPLAINT OF NOT BEING ABLE TO BREATHE. STATES STARTED FEW DAYS AGO. HAS BEEN DOING BREATHING TREATMENTS AT HOME WITH NO RELIEF. Source: patient Exam Limitations: no limitations History of Present Illness Date Seen by Provider: Jul 13, 2022 Time Seen by Provider: 17:38 Initial Comments This is a 57-year-old female who presented to the ER via wheelchair with complaints of difficulty breathing. Allergies and Home Medications Allergies Coded Allergies: alcohol (Verified Allergy, Unknown, Hives, 04/13/22) morphine (Verified Allergy, Unknown, Hives- pt has tolerated hydrocodone, 06/24/22) Patient Home Medication List Albuterol Sulfate (Ventolin Hfa) 90 Mcg Hfa.aer.ad, 2 PUFF INH Q6H PRN for SHORTNESS OF BREATH Prescribed by: PILI ORTIZ on 04/16/22 1117 Hydrochlorothiazide (Hydrochlorothiazide) 25 Mg Tablet, 25 MG PO DAILY PRN for BLOOD PRESSURE, (Reported) Entered as Reported by: LUCIEN JADE on 04/14/22 1207 Hydrocodone/Acetaminophen (Hydrocodone-Acetamin 7.5-325) 7.5 Mg-325 Mg Tablet, 1 EACH PO Q4H Prescribed by: HELENE HUDSON on 06/29/22 1526 Levofloxacin (Levofloxacin) 500 Mg Tablet, 500 MG PO DAILY Prescribed by: HELENE HUDSON on 06/29/22 1526 Metronidazole (Metronidazole) 500 Mg Tablet, 500 MG PO BID Prescribed by: HELENE HUDSON on 06/29/22 1526 Past Gjybxun-Vssmbm-Tczyiv Hx Patient Social History Tobacco Use?: No Use of E-Cig and/or Vaping dev: No Substance use?: No Alcohol Use?: No Pt feels they are or have been: No Immunizations Up To Date Tetanus Booster (TDap): Unknown First/Initial COVID19 Vaccinat: YES Second COVID19 Vaccination Jamaal: YES Third COVID19 Vaccination Date: YES Seasonal Allergies Seasonal Allergies: Yes Past Medical History Surgery/Hospitalization HX: PMH: ANXIETY, PTSD, HTN, DEPRESSION, COPD, POPCORN LUNG, FIBRO, RLS Surgeries: Yes (THYROID CYST REMOVED) Tubal Ligation Respiratory: Yes (COPD) Currently Using CPAP: No Currently Using BIPAP: No Cardiac: No Hypertension Neurological: No (TIA X2) Stroke, TIA 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 Genitourinary: Yes Bladder Infection Gastrointestinal: Yes Gastroesophageal Reflux Musculoskeletal: Yes Fibromyalgia Endocrine: No HEENT: No Cancer: Yes (CLL) Did You Recieve Any Treatments: Yes What Type of Treatment Did You: Radiation Psychosocial: Yes Anxiety Integumentary: Yes (RASH) Recent Skin Changes Blood Disorders: Yes (ANEMIA) Family Medical History Cancer Physical Exam Vital Signs - First Documented 07/13/22 07/13/22 16:55 16:58 Temp 37.2 Pulse 112 Resp 40 B/P (MAP) 123/89 (100) Pulse Ox 98 O2 Delivery Nasal Cannula O2 Flow Rate 2.00 Capillary Refill : Less Than 3 Seconds Height: '" Weight: lbs. oz. kg; 26.00 BMI Method: Focused Exam Lactate Level 07/13/22 17:45: Lactic Acid Level 1.19 Lactic Acid Level Laboratory Tests Test 07/13/22 17:45 Lactic Acid Level 1.19 MMOL/L (0.50-2.00) Progress/Results/Core Measures Suspected Sepsis SIRS Temperature: Pulse: 112 Respiratory Rate: 40 Laboratory Tests 07/13/22 17:25: White Blood Count 25.2H Blood Pressure 123 /89 Mean: 100 07/13/22 17:45: Lactic Acid Level 1.19 Laboratory Tests 07/13/22 17:25: Creatinine 0.71, INR Comment 1.1, Platelet Count 1055*H, Total Bilirubin 0.4 Results/Orders Lab Results Laboratory Tests Test 07/13/22 17:25 07/13/22 17:45 07/13/22 18:34 07/13/22 19:48 Range/Units White Blood Count 25.2 H 4.3-11.0 10^3/uL Red Blood Count 4.53 3.80-5.11 10^6/uL Hemoglobin 9.3 L 11.5-16.0 g/dL Hematocrit 31 L 35-52 % Mean Corpuscular Volume 67 L 80-99 fL Mean Corpuscular Hemoglobin 21 L 25-34 pg Mean Corpuscular Hemoglobin Concent 31 L 32-36 g/dL Red Cell Distribution Width 17.8 H 10.0-14.5 % Platelet Count 1055 *H 130-400 10^3/uL Mean Platelet Volume 9.3 9.0-12.2 fL Immature Granulocyte % (Auto) 3 % Neutrophils (%) (Auto) 78 H 42-75 % Lymphocytes (%) (Auto) 9 L 12-44 % Monocytes (%) (Auto) 10 0-12 % Eosinophils (%) (Auto) 0 0-10 % Basophils (%) (Auto) 1 0-10 % Neutrophils # (Auto) 19.5 H 1.8-7.8 10^3/uL Lymphocytes # (Auto) 2.2 1.0-4.0 10^3/uL Monocytes # (Auto) 2.4 H 0.0-1.0 10^3/uL Eosinophils # (Auto) 0.1 0.0-0.3 10^3/uL Basophils # (Auto) 0.1 0.0-0.1 10^3/uL Immature Granulocyte # (Auto) 0.8 H 0.0-0.1 10^3/uL Neutrophils % (Manual) 84 % Lymphocytes % (Manual) 7 % Monocytes % (Manual) 5 % Eosinophils % (Manual) 0 % Basophils % (Manual) 0 % Metamyelocytes % 2 % Band Neutrophils 2 % Percent Immature Platelet Fraction 2.8 0.0-7.6 % Polychromasia SLIGHT Hypochromasia MARKED Anisocytosis MODERATE Target Cells MODERATE Prothrombin Time 14.8 H 12.2-14.7 SEC INR Comment 1.1 0.8-1.4 Activated Partial Thromboplast Time 37 H 24-35 SEC Sodium Level 138 135-145 MMOL/L Potassium Level 3.6 3.6-5.0 MMOL/L Chloride Level 93 L 98-107 MMOL/L Carbon Dioxide Level 31 21-32 MMOL/L Anion Gap 14 5-14 MMOL/L Blood Urea Nitrogen 10 7-18 MG/DL Creatinine 0.71 0.60-1.30 MG/DL Estimat Glomerular Filtration Rate 100 BUN/Creatinine Ratio 14 Glucose Level 108 H 70-105 MG/DL Calcium Level 8.2 L 8.5-10.1 MG/DL Corrected Calcium 9.2 8.5-10.1 MG/DL Total Bilirubin 0.4 0.1-1.0 MG/DL Aspartate Amino Transf (AST/SGOT) 14 5-34 U/L Alanine Aminotransferase (ALT/SGPT) 8 0-55 U/L Alkaline Phosphatase 95 40-136 U/L Troponin I < 0.028 <0.028 NG/ML B-Type Natriuretic Peptide 98.8 <100.0 PG/ML Total Protein 6.0 L 6.4-8.2 GM/DL Albumin 2.7 L 3.2-4.5 GM/DL Procalcitonin 0.31 H <0.10 NG/ML Lactic Acid Level 1.19 0.50-2.00 MMOL/L Blood Gas Puncture Site L RADIAL Blood Gas Patient Temperature 36.6 Arterial Blood pH 7.45 H 7.37-7.43 Arterial Blood Partial Pressure CO2 49 H 35-45 MMHG Arterial Blood Partial Pressure O2 70 L 79-93 MMHG Arterial Blood HCO3 33 H 23-27 MMOL/L Arterial Blood Total CO2 34.8 H 21.0-31.0 MMOL/L Arterial Blood Oxygen Saturation 94 94-100 % Arterial Blood Base Excess 8.8 H -2.5-2.5 MMOL/L Owen Test YES-POS Blood Gas Ventilator Setting NO Blood Gas Inspired Oxygen 2L My Orders Orders - KEVEN MCDONNELL APRN Cbc With Automated Diff (07/13/22 17:36) Comprehensive Metabolic Panel (07/13/22 17:36) Blood Culture (07/13/22 17:36) Sputum Culture (07/13/22 17:36) Urinalysis (07/13/22 17:36) Urine Culture (07/13/22 17:36) Protime With Inr (07/13/22 17:36) Partial Thromboplastin Time (07/13/22 17:36) Chest 1 View, Ap/Pa Only (07/13/22 17:36) Ed Iv/Invasive Line Start (07/13/22 17:36) Troponin I Haakon (07/13/22 17:36) O2 (07/13/22 17:36) Remove Rings In Anticipation O (07/13/22 17:36) Lactic Acid Analyzer (07/13/22 17:36) Covid 19 Inhouse Test (07/13/22 17:37) Influenza A And B By Pcr (07/13/22 17:37) Bnp Pipe (07/13/22 17:38) Manual Differential (07/13/22 17:25) Sucralfate Tablet (Carafate Tablet) (07/13/22 18:15) Hyoscyamine Sl Tablet (Levsin Sl Tablet) (07/13/22 18:15) Albuterol/Ipra Inhalation Soln (Duoneb I (07/13/22 18:15) Ct Abdomen/Pelvis W (07/13/22 18:13) Iohexol Injection (Omnipaque 350 Mg/Ml 1 (07/13/22 18:30) Received Contrast (Hold Metformin- Contr (07/13/22 18:30) Sodium Chloride Flush (Catheter Flush Sy (07/13/22 18:30) Arterial Blood Gas (07/13/22 18:39) Procalcitonin (Pct) (07/13/22 18:53) Ondansetron Injection (Zofran Injectio (07/13/22 19:15) Ns Iv 1000 Ml (Sodium Chloride 0.9%) (07/13/22 19:15) Ondansetron Injection (Zofran Injectio (07/13/22 19:14) Alprazolam Tablet (Xanax Tablet) (07/13/22 19:45) Metoclopramide Injection (Reglan Injecti (07/13/22 19:45) Rx-Oxycodone/Apap 5-325 Mg (Rx-Percocet (07/13/22 19:45) Ceftriaxone 1 Gm Pre-Mix (Rocephin 1 Gm (07/13/22 20:00) Medications Given in ED Current Medications Medications Dose Ordered Sig/Martha Route Start Time Stop Time Status Last Admin Dose Admin Albuterol/ Ipratropium 3 ml ONCE ONCE INH 07/13/22 18:15 07/13/22 18:16 DC 07/13/22 18:27 3 ML Alprazolam 0.5 mg ONCE ONCE PO 07/13/22 19:45 07/13/22 19:46 DC 07/13/22 19:38 0.5 MG Hyoscyamine Sulfate 0.125 mg ONCE ONCE PO 07/13/22 18:15 07/13/22 18:16 DC 07/13/22 18:17 0.125 MG Iohexol 100 ml ONCE ONCE IV 07/13/22 18:30 07/13/22 18:31 DC 07/13/22 19:05 73 ML Metoclopramide HCl 10 mg ONCE ONCE IVP 07/13/22 19:45 07/13/22 19:46 DC 07/13/22 19:38 10 MG Ondansetron HCl 4 mg ONCE ONCE IVP 07/13/22 19:15 07/13/22 19:16 DC 07/13/22 19:16 4 MG Sodium Chloride 10 ml NEEDED PRN IV 07/13/22 18:30 07/13/22 19:05 10 ML Sodium Chloride 1,000 ml @ 0 mls/hr Q0M ONCE IV 07/13/22 19:15 07/13/22 19:17 DC 07/13/22 19:23 1,000 MLS/HR Vital Signs/I&O 07/13/22 07/13/22 07/13/22 07/13/22 16:55 16:58 17:18 18:28 Temp 37.2 Pulse 112 Resp 40 B/P (MAP) 123/89 (100) Pulse Ox 98 92 98 O2 Delivery Nasal Cannula Nasal Cannula Nasal Cannula Nasal Cannula O2 Flow Rate 2.00 2.00 2.00 2.00 Capillary Refill : Less Than 3 Seconds Blood Pressure Mean: 100 Departure Impression Primary Impression: Hepatic cancer Additional Impressions: Thrombocytosis Hypoxia Disposition: 01 HOME, SELF-CARE Condition: Improved Departure-Patient Inst. Decision time for Depature: 19:57 Referrals: NO,LOCAL PHYSICIAN (PCP/Family) Primary Care Physician Patient Instructions: Oxygen Therapy, Adult (DC), Thrombocytosis Add. Discharge Instructions: Plan: 1. Call [facility] for Cheng in the morning to schedule close follow-up. 2. Dr. Hudson called in pain medication and and nausea medication for you to take, take the Reglan as directed. This will also help with motility. 3. Start with small quantities of food to prevent GI upset and gradually increase. 4. Ambulate as much as you are able to improve motility of your bowels. 5. Take Miralax by mouth twice a day to help with constipation. 6. take antibiotics as directed and complete full course even if you begin to feel better. 7. Return to the ER if you have any new, concerning, worsening symptoms. 8. Use oxygen 2 L via nasal cannula continuously. All discharge instructions reviewed with patient and/or family. Voiced understanding. Scripts Cefdinir (Cefdinir) 300 Mg Capsule 300 MG PO BID for 10 Days, #20 CAP 0 Refills Prov: KEVEN MCDONNELL ACCOUNTING ASSISTANT 07/13/22 KEVEN MCDONNELL ACCOUNTING ASSISTANT Jul 13, 2022 17:38
[2022-07-13 17:47] LABS: BASOPHILS % (AUTO) 1 % (0-10); HEMATOCRIT 31 % (35-52); HEMOGLOBIN 9.3 g/dL (11.5-16.0); MEAN CORPUSCULAR HEMOGLOBIN 21 pg (25-34); MEAN CORPUSCULAR HGB CONC 31 g/dL (32-36); MEAN CORPUSCULAR VOLUME 67 fL (80-99); MEAN PLATELET VOLUME 9.3 fL (9.0-12.2)
[2022-07-13 17:49] LABS: BASOPHILS # (AUTO) 0.1 10^3/uL (0.0-0.1); EOSINOPHILS # (AUTO) 0.1 10^3/uL (0.0-0.3); EOSINOPHILS % (AUTO) 0 % (0-10); LYMPHOCYTES # (AUTO) 2.2 10^3/uL (1.0-4.0); LYMPHOCYTES % (AUTO) 9 % (12-44); MONOCYTES # (AUTO) 2.4 10^3/uL (0.0-1.0); MONOCYTES % (AUTO) 10 % (0-12); NEUTROPHILS # (AUTO) 19.5 10^3/uL (1.8-7.8); NEUTROPHILS % (AUTO) 78 % (42-75); WHITE BLOOD COUNT 25.2 10^3/uL (4.3-11.0)
[2022-07-13 17:50] LABS: PLATELET COUNT 1055 10^3/uL (130-400)
[2022-07-13 18:05] LABS: ALBUMIN 2.7 GM/DL (3.2-4.5); CHLORIDE 93 MMOL/L (98-107); POTASSIUM 3.6 MMOL/L (3.6-5.0); SODIUM 138 MMOL/L (135-145)
[2022-07-13 18:06] LABS: CALCIUM 8.2 MG/DL (8.5-10.1)
[2022-07-13 18:07] LABS: GLUCOSE 108 MG/DL (70-105)
[2022-07-13 18:08] LABS: INR 1.1 (0.8-1.4); PROTHROMBIN TIME PATIENT 14.8 SEC (12.2-14.7)
[2022-07-13 18:09] LABS: ANISOCYTOSIS MODERATE; BAND NEUTROPHILS 2 %; BASOPHILS % (MANUAL) 0 %; BILIRUBIN,TOTAL 0.4 MG/DL (0.1-1.0); CARBON DIOXIDE 31 MMOL/L (21-32); EOSINOPHILS % (MANUAL) 0 %; HYPOCHROMASIA MARKED; LYMPHOCYTES % (MANUAL) 7 %; METAMYELOCYTES % 2 %; MONOCYTES % (MANUAL) 5 %; NEUTROPHILS % (MANUAL) 84 %; POLYCHROMASIA SLIGHT
[2022-07-13 18:10] LABS: TARGET CELLS MODERATE
[2022-07-13 18:11] LABS: ALKALINE PHOSPHATASE 95 U/L (40-136); CREATININE SERUM 0.71 MG/DL (0.60-1.30); GFR ESTIMATED 100
[2022-07-13 18:12] LABS: BUN/CREATININE RATIO 14
[2022-07-13 18:14] LABS: ALANINE AMINOTRANSFERASE 8 U/L (0-55)
[2022-07-13] MEDS ORDERED: RT-ALBUTEROL/IPRATROPIUM 3 ML (DUONEB) VIAL INH ONE (18:15)
[2022-07-13] MEDS ORDERED: HYOSCYAMINE 0.125 MG (LEVSIN) TAB PO ONE (18:15)
[2022-07-13] MEDS ORDERED: SUCRALFATE 1 GM (CARAFATE) TAB PO ONE (18:15)
--- NOTE | 2022-07-13 18:18 | Diagnostic Imaging Report ---
HISTORY: Shortness of air TECHNIQUE: Frontal view of the chest COMPARISON: 07/03/2022 FINDINGS: Lung volumes are normal. No consolidation is seen. There is no pleural effusion or pneumothorax. The cardiac silhouette is normal in size. There is an old healed right rib fracture. IMPRESSION: 1. No acute pulmonary abnormality. Dictated by: Dictated on workstation # [id number]
[2022-07-13] MEDS ORDERED: CATHETER FLUSH 10 ML SYR IV PRN (18:30)
[2022-07-13] MEDS ORDERED: IOHEXOL 350 MG/ML 100 ML (OMNIPAQUE 350) VIAL IV ONE (18:30)
[2022-07-13] MEDS ORDERED: HOLD METFORMIN - RECEIVED CONTRAST 20 ML VIAL IV SCH (18:30)
[2022-07-13 18:54] LABS: ABG BASE EXCESS 8.8 MMOL/L (-2.5-2.5); ABG OXYGEN SATURATION 94 % (94-100); ABG PCO2 49 MMHG (35-45); ABG PH 7.45 (7.37-7.43); ABG PO2 70 MMHG (79-93); ABG TCO2 34.8 MMOL/L (21.0-31.0); ALLENS TEST YES-POS; INSPIRED O2 2L; PATIENT TEMP 36.6; VENTILATOR NO
[2022-07-13] MEDS ORDERED: ONDANSETRON 4 MG/2 ML (SDV) Z0FRAN ONE (19:14)
[2022-07-13] MEDS ORDERED: NS IV 1000 ML 1,000 ML IV ONE (19:15)
[2022-07-13] MEDS ORDERED: ONDANSETRON 4 MG/2 ML (SDV) Z0FRAN IVP ONE (19:15)
--- NOTE | 2022-07-13 19:20 | Diagnostic Imaging Report ---
PROCEDURE: CT abdomen and pelvis with contrast. TECHNIQUE: Multiple contiguous axial images were obtained through the abdomen and pelvis after administration of intravenous contrast. Auto Exposure Controls were utilized during the CT exam to meet ALARA standards for radiation dose reduction. All CT scans use one or more of the following dose optimizing techniques: automated exposure control, MA and/or KvP adjustment based on patient size and exam type or iterative reconstruction. INDICATION: Difficulty breathing. COMPARISON: Correlation is made with prior CT from 07/03/2022. FINDINGS: The lung bases are clear. There are multiple low-attenuation lesions throughout the liver. Smaller lesions appear to be fluid containing and may represent cysts. However, there are at least two dominant solid-appearing lesions in the liver. Ill-defined right lobe lesion measures at least 6.8 cm in diameter. More posteriorly in the right lobe is a solid lesion measuring 4.8 cm. The gallbladder is unremarkable. Pancreas and spleen are unremarkable. There is no adrenal mass. Kidneys are unremarkable. Aorta is nonaneurysmal. Significant stool load in the right colon is noted proximal to the anastomotic sutures in the transverse colon. There is focal transition distal to the anastomotic sutures. There is some moderate stool in the sigmoid. Small bowel loops do appear to be much improved on today's study when compared with 10 days earlier. Small bowel appears to be decompressed. There are some small gas bubbles within the subcutaneous tissues of the anterior abdominal wall in the midline but no discrete fluid collection is seen. Small fat-containing ventral hernia is again noted. No significant free fluid is seen apart from some trace fluid in the pelvis. The bladder and uterus are unremarkable. There is some colonic diverticulosis present. IMPRESSION: 1. Hepatic metastatic disease. 2. Postop changes. There is significant stool load in the ascending colon and proximal one-half of the transverse colon, proximal to the anastomotic sutures. There is moderate stool more distally in the sigmoid colon. 3. Significant improved bowel gas pattern with decompression of the small bowel when compared with prior study. No small bowel obstruction is seen. There is no well-formed fluid collection identified. 4. Postop changes in the anterior abdominal wall with small gas bubbles present. No abdominal wall fluid collection is identified. Dictated by: Dictated on workstation # [id number]
[2022-07-13] MEDS ORDERED: METOCLOPRAMIDE INJ 10 MG/2 ML (REGLAN) IVP ONE (19:45)
[2022-07-13] MEDS ORDERED: ALPRAZolam 0.5 MG (XANAX) TAB PO ONE (19:45)
[2022-07-13] MEDS ORDERED: RX-OXYCODONE/APAP 5-325 MG #4 TAB PK PO PRN (19:45)
[2022-07-13 19:55] LABS: BILIRUBIN,URINE 1+ (NEGATIVE); CLARITY,URINE SL CLOUDY; COLOR,URINE DARK YELLOW; GLUCOSE, URINE (UA) NEGATIVE (NEGATIVE); KETONES,URINE NEGATIVE (NEGATIVE); LEUKOCYTE ESTERASE ,URINE NEGATIVE (NEGATIVE); NITRITE,URINE NEGATIVE (NEGATIVE); PH,URINE 7.5 (5-9); PROTEIN,URINE TRACE (NEGATIVE)
[2022-07-13] MEDS ORDERED: cefTRIAXone 1 GM PRE-MIX 50 ML IV ONE (20:00)
[2022-07-13 20:01] LABS: BACTERIA,URINE NEGATIVE /HPF; SQUAMOUS EPITHELIAL CELL,UR 0-2 /HPF
[2022-07-13] MEDS ORDERED: CEFD300C3 PO (20:01)
[2022-07-13 20:58] VITALS: BP 109/76
== END 2022-07-13 20:58 | disposition home or self-care (01) ==
LOC: EDUNIT# 16:55 → ER 16:57
DX: C22.9 Malignant neoplasm of liver, not specified as primary or secondary (principal); D75.839 Thrombocytosis, unspecified; R09.02 Hypoxemia
CPT/HCPCS: 36415; 36600; 71045; 74177; 80053; 81000; 82805; 83605; 83880; 84145; 84484; 85007; 85027; 85610; 85730; 87040; 87088; 94640

== ENCOUNTER 2022-08-03 14:15 | Observation (INO) | payer MEDICARE, MEDICAID ==
[~2022-08-03] VITALS: Ht 154 cm; Wt 63.0 kg
[2022-08-03] MEDS ORDERED: HYOSCYAMINE 0.125 MG (LEVSIN) TAB PO ONE (15:00)
[2022-08-03] MEDS ORDERED: NS IV 1000 ML 1,000 ML IV ONE (15:00)
[2022-08-03] MEDS ORDERED: ONDANSETRON 4 MG/2 ML (SDV) Z0FRAN IVP ONE (15:00)
[2022-08-03 15:03] LABS: BASOPHILS # (AUTO) 0.1 10^3/uL (0.0-0.1); BASOPHILS % (AUTO) 1 % (0-10); EOSINOPHILS # (AUTO) 0.6 10^3/uL (0.0-0.3); EOSINOPHILS % (AUTO) 4 % (0-10); HEMATOCRIT 36 % (35-52); HEMOGLOBIN 10.3 g/dL (11.5-16.0); LYMPHOCYTES % (AUTO) 39 % (12-44); MEAN CORPUSCULAR HEMOGLOBIN 20 pg (25-34); MEAN CORPUSCULAR HGB CONC 29 g/dL (32-36); MEAN CORPUSCULAR VOLUME 70 fL (80-99); MEAN PLATELET VOLUME 9.1 fL (9.0-12.2); MONOCYTES # (AUTO) 1.7 10^3/uL (0.0-1.0); MONOCYTES % (AUTO) 11 % (0-12); NEUTROPHILS # (AUTO) 7.2 10^3/uL (1.8-7.8); NEUTROPHILS % (AUTO) 46 % (42-75); PLATELET COUNT 676 10^3/uL (130-400); WHITE BLOOD COUNT 15.6 10^3/uL (4.3-11.0)
--- NOTE | 2022-08-03 15:03 | ED Abdominal Pain ---
General Chief Complaint: Abdominal/GI Problems Stated Complaint: STOMACH PAIN/FEVER Nursing Triage Note: STATES SHE HAS HAD A BELLY BUTTON INFECTION SINCE HER BOWEL SURGERY LAST MONTH. PT RECENTLY HAD AN MRI OF THE AREA IN [place]. DR DONIS WAS HER SUGEON HERE. PT COMPLAINS OF FEVER AND SEVERE ABD PAIN Source of Information: Patient, Old Records Exam Limitations: No Limitations (KEVEN MCDONNELL APRN) History of Present Illness Date Seen by Provider: Aug 03, 2022 Time Seen by Provider: 14:46 Initial Comments This is a 57-year-old female who with a history of chronic obstructive pulmonary disease, hypertension, and chronic lymphocytic leukemia, and hepatic cancer who presented to the ER for c/o fever, abdominal pain, intractable nausea, vomiting, and diarrhea x 5 days. Patient had recent hospital admission from June 17 to July 05, 2022 for bowel resection of colon mass. States she was found to have abscess under her umbilicus and is currently being treated by Dr. Hudson with oral antibiotics. Reports fever 102.5 at home with intractable nausea, vomiting, and diarrhea. Unable to hold down water. (KEVEN MCDONNELL APRN) Allergies and Home Medications Allergies Coded Allergies: alcohol (Verified Allergy, Unknown, Hives, 04/13/22) morphine (Verified Allergy, Unknown, Hives- pt has tolerated hydrocodone, 06/24/22) Patient Home Medication List Home Medication List Reviewed: Yes (KEVEN MCDONNELL APRN) Albuterol Sulfate (Ventolin Hfa) 90 Mcg Hfa.aer.ad, 2 PUFF INH Q6H PRN for SHORTNESS OF BREATH Prescribed by: PILI ORTIZ on 04/16/22 1117 Last Action: Reviewed Alprazolam (Alprazolam) 0.5 Mg Tablet, 1 MG PO QID PRN for ANXIETY, (Reported) Entered as Reported by: LUCIEN JADE on 08/04/22 1014 Last Action: Reviewed Amoxicillin/Potassium Clav (Amox Tr-K Clv 500-125 mg Tab) 500 Mg-125 Mg Tablet, 1 EA PO BID, (Reported) Entered as Reported by: LUCIEN JADE on 08/04/22 1014 Last Action: Reviewed Ascorbate Calcium (Vitamin C) 500 Mg Tablet, 500 MG PO DAILY, (Reported) Entered as Reported by: LUCIEN JADE on 10/19/22 1014 Last Action: Reviewed Cyanocobalamin (Vitamin B-12) (Vitamin B-12) 1,000 Mcg Tablet, 1,000 MCG PO DAILY, (Reported) Entered as Reported by: LUCIEN JADE on 08/04/221013 Last Action: Reviewed Fluticasone/Vilanterol (Breo Ellipta 200-25 Mcg INH) 200 Mcg-25 Mcg/Dose Blst.w.dev, 1 EACH IH DAILY, (Reported) Entered as Reported by: LUCIEN JADE on 08/04/221013 Last Action: Reviewed Hydrochlorothiazide (Hydrochlorothiazide) 25 Mg Tablet, 25 MG PO DAILY, (Reported) Entered as Reported by: LUCIEN JADE on 04/14/22 1207 Last Action: Reviewed Hydrocodone/Acetaminophen (Hydrocodone-Acetamin 10-325 mg) 10 Mg-325 Mg Tablet, 1 EA PO Q6H PRN for PAIN-MODERATE (5-7), (Reported) Entered as Reported by: LUCIEN JADE on 08/04/221013 Last Action: Reviewed [place]-3S/Dha/Epa/Fish Oil/D3 (Fish Oil + D3 Softgel) 360 Mg-1,200 Mg-1,000 Unit Capsule, 1 EACH PO DAILY, (Reported) Entered as Reported by: LUCIEN JADE on 08/04/221013 Last Action: Reviewed Omeprazole Magnesium (Omeprazole Magnesium) 20 Mg Capsule.dr, 40 MG PO DAILY PRN for HEARTBURN, (Reported) Entered as Reported by: LUCIEN JADE on 08/04/221013 Last Action: Reviewed Ondansetron HCl (Ondansetron HCl) 4 Mg Tablet, 4 MG PO Q4H PRN for NAUSEA/VOMITING-1ST LINE, (Reported) Entered as Reported by: LUCIEN JADE on 08/04/221013 Last Action: Reviewed Promethazine HCl (Promethazine Tablet) 25 Mg Tablet, 12.5 MG PO Q6H PRN for NAUSEA/VOMITING Prescribed by: HELENE HUDSON on 08/04/22 1513 Discontinued Medications Cefdinir (Cefdinir) 300 Mg Capsule, 300 MG PO BID Discontinued Reason: No Longer Taking Prescribed by: KEVEN MCDONNELL on 07/13/222000 Last Action: Discontinued Hydrocodone/Acetaminophen (Hydrocodone-Acetamin 7.5-325) 7.5 Mg-325 Mg Tablet, 1 EACH PO Q4H Discontinued Reason: No Longer Taking Prescribed by: HELENE HUDSON on 06/29/221525 Last Action: Discontinued Levofloxacin (Levofloxacin) 500 Mg Tablet, 500 MG PO DAILY Discontinued Reason: No Longer Taking Prescribed by: HELENE HUDSON on 06/29/221525 Last Action: Discontinued Metronidazole (Metronidazole) 500 Mg Tablet, 500 MG PO BID Discontinued Reason: No Longer Taking Prescribed by: HELENE HUDSON on 06/29/221525 Last Action: Discontinued Review of Systems Review of Systems Constitutional: chills, fever EENTM: No Symptoms Reported Respiratory: Cough, SOA at Rest Cardiovascular: Denies Chest Pain; Lightheadedness; Denies Palpitations, Denies Syncope Gastrointestinal: Abdomen Distended, Abdominal Pain, Diarrhea, Nausea, Vomiting Genitourinary: Denies Burning, Denies Discharge, Denies Flank Pain, Denies Hematuria Musculoskeletal: no symptoms reported Skin: other (redness, discharge from umbilicus ) Psychiatric/Neurological: Anxiety Endocrine: No Symptoms Reported Hematologic/Lymphatic: No Symptoms Reported (KEVEN MCDONNELL APRN) Past Oiemdwk-Dsawbk-Selxby Hx Patient Social History Tobacco Use?: Yes Smoking Status: Current Someday Smoker Substance use?: No (KEVEN MCDONNELL APRN) Immunizations Up To Date Tetanus Booster (TDap): Unknown First/Initial COVID19 Vaccinat: UNKNOWN Second COVID19 Vaccination Jamaal: YES Third COVID19 Vaccination Date: YES COVID19 Vaccine Nurse Practitioner Home Assessments: UNKNOWN (KEVEN MCDONNELL APRN) Seasonal Allergies Seasonal Allergies: Yes (KEVEN MCDONNELL APRN) Past Medical History Surgery/Hospitalization HX: PMH: ANXIETY, PTSD, HTN, DEPRESSION, COPD, POPCORN LUNG, FIBRO, RLS Surgeries: Yes (THYROID CYST REMOVED) Tubal Ligation Respiratory: Yes (COPD) Currently Using CPAP: No Currently Using BIPAP: No Cardiac: No Hypertension Neurological: No (TIA X2) Stroke, TIA 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 Genitourinary: Yes Bladder Infection Gastrointestinal: Yes Gastroesophageal Reflux Musculoskeletal: Yes Fibromyalgia Endocrine: No HEENT: No Cancer: Yes (CLL) Did You Recieve Any Treatments: Yes What Type of Treatment Did You: Radiation Psychosocial: Yes Anxiety Integumentary: Yes (RASH) Recent Skin Changes Blood Disorders: Yes (ANEMIA) (KEVEN MCDONNELL APRN) Family Medical History Cancer (KEVEN MCDONNELL APRN) Physical Exam Vital Signs Vital Signs - First Documented 08/03/22 08/03/22 14:32 15:05 Temp 36.7 Pulse 108 Resp 16 B/P (MAP) 134/83 (100) Pulse Ox 95 O2 Delivery Nasal Cannula O2 Flow Rate 2.00 (KENNEDI RODRIGUEZ MD) Vital Signs Capillary Refill : Less Than 3 Seconds (KEVEN MCDONNELL APRN) Height/Weight/BMI Height: '" Weight: lbs. oz. kg; 26.00 BMI Method: General Appearance: WD/WN, no apparent distress HEENT: PERRL/EOMI, normal ENT inspection, pharynx normal Neck: full range of motion, normal inspection Respiratory: no respiratory distress, decreased breath sounds Cardiovascular: normal peripheral pulses, regular rate, rhythm, no edema Gastrointestinal: normal bowel sounds, soft; No distended; tenderness (lower abdominal tenderness ), hepatomegaly, other (mild erythema and soft tissue swelling of umbilicus. ) Extremities: normal range of motion, normal inspection, normal capillary refill Neurologic/Psychiatric: no motor/sensory deficits, alert, normal mood/affect, oriented x 3, other (anxious ) Skin: normal color, warm/dry (KEVEN MCDONNELL APRN) Focused Exam Lactate Level 08/03/22 14:50: Lactic Acid Level 1.19 (KENNEDI RODRIGUEZ MD) Lactic Acid Level Laboratory Tests Test 08/03/22 14:50 Lactic Acid Level 1.19 MMOL/L (0.50-2.00) (KENNEDI RODRIGUEZ MD) Progress/Results/Core Measures Results/Orders Lab Results Laboratory Tests Test 08/03/22 14:50 08/03/22 16:29 08/03/22 19:15 Range/Units White Blood Count 15.6 H 4.3-11.0 10^3/uL Red Blood Count 5.20 H 3.80-5.11 10^6/uL Hemoglobin 10.3 L 11.5-16.0 g/dL Hematocrit 36 35-52 % Mean Corpuscular Volume 70 L 80-99 fL Mean Corpuscular Hemoglobin 20 L 25-34 pg Mean Corpuscular Hemoglobin Concent 29 L 32-36 g/dL Red Cell Distribution Width 18.6 H 10.0-14.5 % Platelet Count 676 H 130-400 10^3/uL Mean Platelet Volume 9.1 9.0-12.2 fL Immature Granulocyte % (Auto) 0 % Neutrophils (%) (Auto) 46 42-75 % Lymphocytes (%) (Auto) 39 12-44 % Monocytes (%) (Auto) 11 0-12 % Eosinophils (%) (Auto) 4 0-10 % Basophils (%) (Auto) 1 0-10 % Neutrophils # (Auto) 7.2 1.8-7.8 10^3/uL Lymphocytes # (Auto) 6.0 H 1.0-4.0 10^3/uL Monocytes # (Auto) 1.7 H 0.0-1.0 10^3/uL Eosinophils # (Auto) 0.6 H 0.0-0.3 10^3/uL Basophils # (Auto) 0.1 0.0-0.1 10^3/uL Immature Granulocyte # (Auto) 0.1 0.0-0.1 10^3/uL Neutrophils % (Manual) 45 % Lymphocytes % (Manual) 32 % Monocytes % (Manual) 18 % Eosinophils % (Manual) 5 % Polychromasia MARKED Target Cells MODERATE Stomatocytes MODERATE Elliptocytes SLIGHT Prothrombin Time 13.2 12.2-14.7 SEC INR Comment 1.0 0.8-1.4 Activated Partial Thromboplast Time 33 24-35 SEC Sodium Level 139 135-145 MMOL/L Potassium Level 4.0 3.6-5.0 MMOL/L Chloride Level 96 L 98-107 MMOL/L Carbon Dioxide Level 32 21-32 MMOL/L Anion Gap 11 5-14 MMOL/L Blood Urea Nitrogen 4 L 7-18 MG/DL Creatinine 0.66 0.60-1.30 MG/DL Estimat Glomerular Filtration Rate 104 BUN/Creatinine Ratio 6 Glucose Level 102 70-105 MG/DL Lactic Acid Level 1.19 0.50-2.00 MMOL/L Calcium Level 9.2 8.5-10.1 MG/DL Corrected Calcium 9.4 8.5-10.1 MG/DL Total Bilirubin 0.3 0.1-1.0 MG/DL Aspartate Amino Transf (AST/SGOT) 16 5-34 U/L Alanine Aminotransferase (ALT/SGPT) 7 0-55 U/L Alkaline Phosphatase 117 40-136 U/L C-Reactive Protein High Sensitivity 1.55 H 0.00-0.50 MG/DL Total Protein 8.1 6.4-8.2 GM/DL Albumin 3.7 3.2-4.5 GM/DL Procalcitonin 0.06 <0.10 NG/ML Stool Occult Blood Immunoassay POSITIVE H NEGATIVE Urine Color YELLOW Urine Clarity CLEAR Urine pH 6.5 5-9 Urine Specific [place] <=1.005 1.016-1.022 Urine Protein NEGATIVE NEGATIVE Urine Glucose (UA) NEGATIVE NEGATIVE Urine Ketones NEGATIVE NEGATIVE Urine Nitrite NEGATIVE NEGATIVE Urine Bilirubin NEGATIVE NEGATIVE Urine Urobilinogen 0.2 < = 1.0 MG/DL Urine Leukocyte Esterase NEGATIVE NEGATIVE Urine RBC (Auto) NEGATIVE NEGATIVE Urine RBC 5-10 H /HPF Urine WBC NONE /HPF Urine Squamous Epithelial Cells NONE /HPF Urine Renal Epithelial Cells NONE /HPF Urine Crystals NONE /LPF Urine Bacteria NEGATIVE /HPF Urine Casts NONE /LPF Urine Mucus NEGATIVE /LPF Urine Culture Indicated CULTURE PENDING (KENNEDI RODRIGUEZ MD) Micro Results Microbiology 08/03/22 Urine Culture - Final, Complete NO GROWTH 08/03/22 C. difficile GDH Antigen & Toxins - Final, Complete 08/03/22 Stool Culture - Final, Complete 08/03/22 Blood Culture - Preliminary, Resulted No growth 08/03/22 Blood Culture - Preliminary, Resulted No growth (KENNEDI RODRIGUEZ MD) Vital Signs/I&O 08/03/22 08/03/22 14:32 15:05 Temp 36.7 Pulse 108 Resp 16 B/P (MAP) 134/83 (100) Pulse Ox 95 94 O2 Delivery Nasal Cannula Nasal Cannula O2 Flow Rate 2.00 (KENNEDI RODRIGUEZ MD) Blood Pressure Mean: 100 Progress Progress Note : Progress Note Patient examined, very anxious. Orders placed for sepsis workup, IVF, Zofran, and Levsin for abdominal cramping. Labs and imaging reviewed. Improvement in WBC, Hgb stable. Given Zofran and Phenergan for nausea/vomiting. Vomited again in restroom. Persistent diarrhea. Negative for C-diff, positive occult blood. Discussed that her labs and imaging all indicate improvement of her abscess and infection. She is adamant for admission due to N/V/D. Plan of care reviewed with Dr. Hudson, will admit observation for hydration, intractable nausea and vomiting. (KEVEN MCDONNELL FISH TENDER) Diagnostic Imaging Comments [facility] [place], [place] NAME: TAVARES JEFFERS [facility] REC#: [id number] PT STATUS: REG ER : 1965 PHYSICIAN: KEVEN MCDONNELL APRN ADMIT DATE: 08/03/22/ER Draft Date of Exam:08/03/22 CHEST 1 VIEW, AP/PA ONLY INDICATION: Fever Frontal chest obtained at 02:59 p.m. Heart and mediastinal silhouette are normal in appearance. The lungs are clear. There is no pneumothorax or pleural fluid. There is an old right 6th rib fracture. IMPRESSION: No acute process in the chest. Dictated on workstation # [id number] Dict: 08/03/22 1500 Trans: 08/03/22 1509 [facility] [id number] Interpreted by: MACY KELLEY MD Electronically signed by: Comments [facility], [facility] [place], [place] NAME: TAVARES JEFFERS [facility] REC#: [id number] PT STATUS: REG ER : 1965 PHYSICIAN: KEVEN MCDONNELL APRN ADMIT DATE: 08/03/22/ER Signed Date of Exam:08/03/22 CT ABDOMEN/PELVIS W PROCEDURE: CT abdomen and pelvis with contrast. TECHNIQUE: Multiple contiguous axial images were obtained through the abdomen and pelvis after administration of intravenous contrast. Auto Exposure Controls were utilized during the CT exam to meet ALARA standards for radiation dose reduction. All CT scans use one or more of the following dose optimizing techniques: Automated exposure control, MA and/or KvP adjustment based on patient size and exam type or iterative reconstruction. INDICATION: Fever and pain. COMPARISON: Exam is compared with study 07/13/2022. FINDINGS: Multifocal ill-defined hypodense but solid infiltrative lesions in the left and right hepatic lobes, presumptively metastatic. Largest lesion along the left lobe at its junction with the right lobe is 6.4 x 5.4 cm today, previously 6.8 x 6 cm, little if any change. There are some additional scattered simple hepatic cysts superimposed as well as additional smaller solid masses also showing no substantial change. No bile duct dilatation. The spleen and adrenals are negative. The pancreas is nonacute. There is noninflamed sigmoid diverticulosis. There has been improvement in constipation from prior and further reduction in small bowel dilatation. Abdominal periumbilical subcutaneous edema and regional cellulitis have also mildly improved with decreased bubbles of subcutaneous gas, and no appreciable residual drainable periumbilical fluid collection. No adverse interval development. No ascites. IMPRESSION: 1. Further improvements in periumbilical subcutaneous cellulitis, stranding, edema, and gas with no residual or recurrent drainable fluid collection. 2. Multifocal presumptive hepatic metastatic disease, unchanged. 3. Further reduction in elevation of the fecal load and essential resolution of prior small bowel dilatation. There has been no adverse interval development. Dictated by: Dictated on workstation # [id number] Dict: 08/03/221699 Trans: 08/03/221711 [id number] Interpreted by: XI RESENDIZ Electronically signed by: XI RESENDIZ 08/03/221711 (KEVEN MCDONNELL FISH TENDER) Departure Communication (Admissions) Time/Spoke to Admitting Phy: 19:45 Becca (KEVEN MCDONNELL FISH TENDER) Impression Primary Impression: Intractable nausea and vomiting Additional Impression: Diarrhea Disposition: ADMITTED INPATIENT Condition: Stable Admissions Decision to Admit Reason: Admit from ER (General) Decision to Admit/Date: Aug 03, 2022 Time/Decision to Admit Time: 20:00 (KEVEN MCDONNELL FISH TENDER) Departure-Patient Inst. Referrals: NO,LOCAL PHYSICIAN (PCP/Family) Primary Care Physician Scripts Promethazine HCl (Promethazine Tablet) 25 Mg Tablet 12.5 MG PO Q6H PRN for NAUSEA/VOMITING, #60 TAB Prov: HELENE HUDSON MD 08/04/22 ATTENDING PHYSICIAN NOTE: I was physically present in the Emergency Department during the assessment and treatment of this patient and was available for consultation. I did not directly interview or examine this patient and was otherwise not directly involved in decision making or treatment of this patient. (KENNEDI RODRIGUEZ MD) KEVEN MCDONNELL FISH TENDER Aug 03, 2022 15:03 KENNEDI RODRIGUEZ MD Aug 07, 2022 07:48
--- NOTE | 2022-08-03 15:10 | Diagnostic Imaging Report ---
INDICATION: Fever Frontal chest obtained at 02:59 p.m. Heart and mediastinal silhouette are normal in appearance. The lungs are clear. There is no pneumothorax or pleural fluid. There is an old right 6th rib fracture. IMPRESSION: No acute process in the chest. Dictated by: Dictated on workstation # [id number]
[2022-08-03 15:14] LABS: ALBUMIN 3.7 GM/DL (3.2-4.5)
[2022-08-03 15:15] LABS: CALCIUM 9.2 MG/DL (8.5-10.1)
[2022-08-03 15:16] LABS: TOTAL PROTEIN 8.1 GM/DL (6.4-8.2)
[2022-08-03 15:18] LABS: BILIRUBIN,TOTAL 0.3 MG/DL (0.1-1.0); PROTHROMBIN TIME PATIENT 13.2 SEC (12.2-14.7)
[2022-08-03 15:20] LABS: CREATININE SERUM 0.66 MG/DL (0.60-1.30)
[2022-08-03 15:22] LABS: ELLIPT/OVALOCYTES SLIGHT; EOSINOPHILS % (MANUAL) 5 %; LYMPHOCYTES % (MANUAL) 32 %; MONOCYTES % (MANUAL) 18 %; NEUTROPHILS % (MANUAL) 45 %; POLYCHROMASIA MARKED; STOMATOCYTES MODERATE; TARGET CELLS MODERATE
[2022-08-03] MEDS ORDERED: PROMETHAZINE INJ 25 MG/ML (PHENERGAN) AMP IVP ONE (16:15)
[2022-08-03] MEDS ORDERED: IOHEXOL 350 MG/ML 100 ML (OMNIPAQUE 350) VIAL IV ONE (16:30)
[2022-08-03] MEDS ORDERED: HOLD METFORMIN - RECEIVED CONTRAST 20 ML VIAL IV SCH (16:30)
[2022-08-03] MEDS ORDERED: NS 100 ML (IVPB) BAG IV ONE (16:30)
[2022-08-03] MEDS ORDERED: HYDROmorphone 2 MG/ML VIAL (DILAUDID) IV ONE (16:30)
--- NOTE | 2022-08-03 17:10 | Diagnostic Imaging Report ---
PROCEDURE: CT abdomen and pelvis with contrast. TECHNIQUE: Multiple contiguous axial images were obtained through the abdomen and pelvis after administration of intravenous contrast. Auto Exposure Controls were utilized during the CT exam to meet ALARA standards for radiation dose reduction. All CT scans use one or more of the following dose optimizing techniques: Automated exposure control, MA and/or KvP adjustment based on patient size and exam type or iterative reconstruction. INDICATION: Fever and pain. COMPARISON: Exam is compared with study 07/13/2022. FINDINGS: Multifocal ill-defined hypodense but solid infiltrative lesions in the left and right hepatic lobes, presumptively metastatic. Largest lesion along the left lobe at its junction with the right lobe is 6.4 x 5.4 cm today, previously 6.8 x 6 cm, little if any change. There are some additional scattered simple hepatic cysts superimposed as well as additional smaller solid masses also showing no substantial change. No bile duct dilatation. The spleen and adrenals are negative. The pancreas is nonacute. There is noninflamed sigmoid diverticulosis. There has been improvement in constipation from prior and further reduction in small bowel dilatation. Abdominal periumbilical subcutaneous edema and regional cellulitis have also mildly improved with decreased bubbles of subcutaneous gas, and no appreciable residual drainable periumbilical fluid collection. No adverse interval development. No ascites. IMPRESSION: 1. Further improvements in periumbilical subcutaneous cellulitis, stranding, edema, and gas with no residual or recurrent drainable fluid collection. 2. Multifocal presumptive hepatic metastatic disease, unchanged. 3. Further reduction in elevation of the fecal load and essential resolution of prior small bowel dilatation. There has been no adverse interval development. Dictated by: Dictated on workstation # [id number]
[2022-08-03 19:31] LABS: BILIRUBIN,URINE NEGATIVE (NEGATIVE); CLARITY,URINE CLEAR; COLOR,URINE YELLOW; GLUCOSE, URINE (UA) NEGATIVE (NEGATIVE); KETONES,URINE NEGATIVE (NEGATIVE); LEUKOCYTE ESTERASE ,URINE NEGATIVE (NEGATIVE); NITRITE,URINE NEGATIVE (NEGATIVE); PH,URINE 6.5 (5-9); PROTEIN,URINE NEGATIVE (NEGATIVE)
[2022-08-03 19:32] LABS: BACTERIA,URINE NEGATIVE /HPF
[2022-08-03] MEDS ORDERED: HYDROcodone/APAP 5 MG/325 MG (LORTAB) TAB PO ONE (20:15)
[2022-08-03 20:45] VITALS: BP 123/79
[2022-08-03 21:19] VITALS: BP 134/83
[2022-08-03] MEDS ORDERED: PROCHLORPERAZINE 10 MG/2ML INJ (COMPAZINE) IV PRN (21:45)
[2022-08-03] MEDS ORDERED: PROMETHAZINE INJ 25 MG/ML (PHENERGAN) AMP IVP PRN (21:45)
[2022-08-03] MEDS ORDERED: METOCLOPRAMIDE INJ 10 MG/2 ML (REGLAN) IVP PRN (21:45)
[2022-08-03] MEDS ORDERED: RT-ALBUTEROL SULF 2.5 MG/3 ML PRE-MIX VIAL INH PRN (21:45)
[2022-08-03] MEDS ORDERED: ONDANSETRON 4 MG/2 ML (SDV) Z0FRAN IV PRN (21:45)
[2022-08-03] MEDS ORDERED: HYDROcodone/APAP 5 MG/325 MG (LORTAB) TAB PO PRN (22:00)
[2022-08-03] MEDS: NS IV 1000 ML 1,000 ML IV SCH (23:55)
[2022-08-04] VITALS: BP 124/79
[2022-08-04] MEDS: HYDROmorphone 2 MG/ML VIAL (DILAUDID) IV PRN ×2 (02:35→08:09)
[2022-08-04 04:00] VITALS: BP 84/79
[2022-08-04] MEDS ORDERED: CATHETER FLUSH 10 ML SYR IVP PRN (07:00)
[2022-08-04 07:59] VITALS: BP 118/59
[2022-08-04] MEDS: NS IV 1000 ML 1,000 ML IV SCH ×2 (08:08→10:18)
[2022-08-04] MEDS ORDERED: CHOLESTYRAMINE 4 GM (QUESTRAN LITE, PREVALITE) PKT PO SCH (09:00)
[2022-08-04] MEDS ORDERED: AMOX1TAB11 PO (10:14)
[2022-08-04] MEDS ORDERED: ASCO-262 PO (10:14)
[2022-08-04] MEDS ORDERED: HYDR-3820 PO (10:14)
[2022-08-04] MEDS ORDERED: CYAN-41 PO (10:14)
[2022-08-04] MEDS ORDERED: ONDA-105 PO (10:14)
[2022-08-04] MEDS ORDERED: OMEG-82 PO (10:14)
[2022-08-04] MEDS ORDERED: ALPR0.5T7 PO (10:14)
[2022-08-04] MEDS ORDERED: FLUT1BLS IH (10:14)
[2022-08-04] MEDS ORDERED: OMEP-254 PO (10:14)
[2022-08-04 11:34] VITALS: BP 128/74
[2022-08-04] MEDS ORDERED: PROM25TA14 PO (15:13)
--- NOTE | 2022-08-04 15:15 | Discharge Inst-Surgical ---
D/C Lap Instructions-KIDO New, Converted, or Re-Newed RX: RX on Chart Follow Up 08/17/22 Activity as tolerated High Fiber Diet 25g or more per day Avoid Alcohol, Caffeine, Spicy [place] and Acid foods. Drink 64 fluid oz or more of fluids per day. Symptoms to Report: Fever over 101 degree F, Nausea/Vomiting If any problems/questions: Contact your physician or go to Emergency Room HELENE PORTER MD Aug 04, 2022 15:15
[2022-08-04 15:28] VITALS: BP 115/71
--- NOTE | 2022-08-04 15:40 | HISTORY AND PHYSICAL ---
DATE OF SERVICE: HISTORY OF PRESENT ILLNESS: The patient is a 57-year-old female known to us. She initially presented to the Emergency Department on 04/13/2022 with 3-day history of crampy abdominal pain and nausea and vomiting. A CT scan showed two significant size lesion of the liver as well as a lesion of the transverse colon suspicious for metastatic malignancy. The patient does appear to have a multitude of psychosocial issues and was initially resistant to everything. She was seen in the office several times and did finally agree to have a colonoscopy, which was performed on 05/07/2022 and was found to have a circumferential transverse colonic mass, which was biopsied and submucosally marked. This came back consistent with an adenocarcinoma. No DNA mismatch repair gene would indicate a Bhakta syndrome. After thinking on this for several weeks, she did decide on resection of the colonic mass. We did this on 06/24/2022 and since that time, she has had multiple normal postoperative issues including diarrhea as well as nausea and vomiting; however, again may have a compliance issue. She has also been seen by oncology with the recommendation to proceed with a right lobectomy for the two lesions of the liver. However, again she states that she wants to wait before proceeding with the procedure. PAST MEDICAL HISTORY: Metastatic colon cancer, COPD, hypertension, chronic urinary tract infection, history of chronic lymphocytic leukemia, anxiety, history of stroke. PAST SURGICAL HISTORY: Right breast biopsy, which was benign, tubal ligation, laparoscopic transverse colectomy on 06/24/2022. ALLERGIES: MORPHINE. MEDICATIONS: Albuterol 90 mcg 6 hours p.r.n., aspirin 81 mg daily, bupropion 150 mg daily, Breo Ellipta 200/25 mcg daily, hydrochlorothiazide 25 mg daily, hydroxyzine 25 mg daily. SOCIAL HISTORY: Positive smoke 40 pack years. Negative alcohol. FAMILY HISTORY: Mother, colon cancer. Brother, lung cancer. REVIEW OF SYSTEMS: Well-nourished female currently in no acute distress. She is not experiencing any shortness of breath or difficulty breathing. No chest pain, palpitations, diaphoresis. Currently, no nausea, vomiting and states that she is tolerating liquids without any difficulty. She is also having loose stools; however, more solidified than what was previous at home. No red blood per rectum, no dark tarry stools. She states that she did have some fevers at home; however, none since being admitted. She also has lost some weight since the surgery. PHYSICAL EXAMINATION: CHEST: Scattered wheezes and rhonchi bilaterally. HEART: Regular, no murmurs. EXTREMITIES: No lower extremity edema, negative Homans sign. HEENT: No scleral icterus. NECK: No cervical lymphadenopathy. ABDOMEN: Soft, nondistended. There is mild discomfort around the mid abdominal region. The wound is clean, dry and intact with no surrounding redness or erythema. SKIN: Warm, dry. LABORATORY DATA: WBC 15.6, hemoglobin 10.3, hematocrit 36, platelets 676. BUN 4, creatinine 0.66. ASSESSMENT AND PLAN: A 57-year-old female with nausea and vomiting, likely secondary to previous medications and diarrhea, likely secondary to antibiotics. She has improved dramatically overnight. After IV hydration, we will continue with medical management antinausea medication with Phenergan 12.5 mg p.o. q.6 hours p.r.n. along with Zofran that she already has at home. We will have her follow up in the office on a regular basis as well. Job ID: [id number] DocumentID: [id number] Dictated Date: 08/04/2022 15:21:38 Tilesetter Date: 08/04/2022 15:39:17 Dictated By: HELENE PORTER MD
== END 2022-08-04 16:08 | disposition home or self-care (01) ==
LOC: EDUNIT# 14:15 → ER 14:18 → 4TH 20:00
PROVIDERS: ADMIT Surgery; ATTEND Surgery
DX: R11.2 Nausea with vomiting, unspecified (principal); R19.7 Diarrhea, unspecified; F17.210 Nicotine dependence, cigarettes, uncomplicated
CPT/HCPCS: 71045; 74177; 80053; 81000; 82274; 83605; 84145; 85007; 85027; 85610; 85730; 86141; 87015; 87040; 87045; 87046; 87088; 87324; 87449; 87899; 96375; 96376; 99284; G0378; 36415; 85025; 96361; 96374

== ENCOUNTER 2022-08-09 14:46 | Emergency (ER) | payer MEDICARE, MEDICAID ==
[~2022-08-09] VITALS: Ht 157 cm; Wt 58.0 kg
[~2022-08-09 14:46] MED LIST changes: +ALPR0.5T7 PO; +AMOX1TAB11 PO; +CYAN-41 PO; +FLUT1BLS IH; +HYDR-3820 PO; +OMEG-82 PO; +OMEP-254 PO; +ONDA-105 PO; +PROM25TA14 PO
[2022-08-09] MEDS ORDERED: RT-ALBUTEROL/IPRATROPIUM 3 ML (DUONEB) VIAL ONE (15:08)
--- NOTE | 2022-08-09 15:11 | ED Respiratory ---
General Chief Complaint: Respiratory Problems Stated Complaint: FEVER/OXY DROPPING Source: patient History of Present Illness Date Seen by Provider: Aug 09, 2022 Time Seen by Provider: 14:55 Initial Comments Patient is a 57-year-old female history of severe COPD recent diagnosis of colon cancer and liver mass. On oxygen at 1 L at home. States that she is no longer smoking, found to have room air oxygen sats at 68/69%. Significant increased work of breathing. She has had a mildly productive cough of a light yellow sputum. She complains of intermittent fevers since her last ER visit during which she was admitted overnight for intractable nausea and vomiting. No significant abdominal pain. She complains of rashes under her breast and in her groin that she has been putting powder on. She states it itches severely. She denies being COVID vaccinated and adamantly refuses any COVID testing. No body aches. She is quite agitated on arrival. Physical exam reveals very poor air movement in her lungs. No audible wheezing. She is immediately placed on 10 L per simple facemask with improvement of her oxygen saturations to 100%. She is concerned about a "abscess" under the umbilicus. Per review of the medical record last admission she had improvement of the area of concern. She has had chronic leukocytosis. She quit taking her amoxicillin because she said it was upsetting her stomach. She has 1 tablet left. No burning with urination. She has chronic diarrhea. Nonblack nonbloody. All other review of systems reviewed and negative except as stated Timing/Duration: this afternoon Severity: severe Prior Episodes/Possible Cause: occasional episodes Modifying Factors: Worse With Activity Associated Symptoms: cough, fever/chills, shortness of breath Allergies and Home Medications Allergies Coded Allergies: alcohol (Verified Allergy, Unknown, Hives, 04/13/22) morphine (Verified Allergy, Unknown, Hives- pt has tolerated hydrocodone, 06/24/22) Patient Home Medication List Home Medication List Reviewed: Yes Albuterol Sulfate (Ventolin Hfa) 90 Mcg Hfa.aer.ad, 2 PUFF INH Q6H PRN for SHORTNESS OF BREATH Prescribed by: PILI ORTIZ on 04/16/22 1117 Alprazolam (Alprazolam) 0.5 Mg Tablet, 1 MG PO QID PRN for ANXIETY, (Reported) Entered as Reported by: ULCIEN JADE on 08/04/22 1014 Amoxicillin/Potassium Clav (Amox Tr-K Clv 500-125 mg Tab) 500 Mg-125 Mg Tablet, 1 EA PO BID, (Reported) Entered as Reported by: LUCIEN JADE on 08/04/22 1014 Ascorbate Calcium (Vitamin C) 500 Mg Tablet, 500 MG PO DAILY, (Reported) Entered as Reported by: LUCIEN JADE on 08/04/22 1014 Cyanocobalamin (Vitamin B-12) (Vitamin B-12) 1,000 Mcg Tablet, 1,000 MCG PO DAILY, (Reported) Entered as Reported by: LUCIEN JADE on 08/04/22 1014 Fluticasone/Vilanterol (Breo Ellipta 200-25 Mcg INH) 200 Mcg-25 Mcg/Dose Blst.w.dev, 1 EACH IH DAILY, (Reported) Entered as Reported by: LUCIEN JADE on 08/04/22 1014 Hydrochlorothiazide (Hydrochlorothiazide) 25 Mg Tablet, 25 MG PO DAILY, (Reported) Entered as Reported by: LUCIEN JADE on 04/14/22 1207 Hydrocodone/Acetaminophen (Hydrocodone-Acetamin 10-325 mg) 10 Mg-325 Mg Tablet, 1 EA PO Q6H PRN for PAIN-MODERATE (5-7), (Reported) Entered as Reported by: LUCIEN JADE on 08/04/22 1014 [place]-3S/Dha/Epa/Fish Oil/D3 (Fish Oil + D3 Softgel) 360 Mg-1,200 Mg-1,000 Unit Capsule, 1 EACH PO DAILY, (Reported) Entered as Reported by: LUCIEN JADE on 08/04/22 1014 Omeprazole Magnesium (Omeprazole Magnesium) 20 Mg Capsule.dr, 40 MG PO DAILY PRN for HEARTBURN, (Reported) Entered as Reported by: LUCIEN JADE on 08/04/22 1014 Ondansetron HCl (Ondansetron HCl) 4 Mg Tablet, 4 MG PO Q4H PRN for NAUSEA/VOMITING-1ST LINE, (Reported) Entered as Reported by: LUCIEN JADE on 08/04/22 1014 Promethazine HCl (Promethazine Tablet) 25 Mg Tablet, 12.5 MG PO Q6H PRN for NAUSEA/VOMITING Prescribed by: HELENE PORTER on 08/04/22 1513 Discontinued Medications Cefdinir (Cefdinir) 300 Mg Capsule, 300 MG PO BID Discontinued Reason: No Longer Taking Prescribed by: KEVEN MCDONNELL on 07/13/222000 Hydrocodone/Acetaminophen (Hydrocodone-Acetamin 7.5-325) 7.5 Mg-325 Mg Tablet, 1 EACH PO Q4H Discontinued Reason: No Longer Taking Prescribed by: HELENE PORTER on 06/29/22 152 Levofloxacin (Levofloxacin) 500 Mg Tablet, 500 MG PO DAILY Discontinued Reason: No Longer Taking Prescribed by: HELENE PORTER on 06/29/22 152 Metronidazole (Metronidazole) 500 Mg Tablet, 500 MG PO BID Discontinued Reason: No Longer Taking Prescribed by: HELENE PORTER on 06/29/221525 Review of Systems Review of Systems Constitutional: see HPI EENTM: no symptoms reported Respiratory: cough, phlegm, short of breath Cardiovascular: no symptoms reported Gastrointestinal: abdominal pain Genitourinary: no symptoms reported Musculoskeletal: no symptoms reported Skin: no symptoms reported Psychiatric/Neurological: Anxiety All Other Systems Reviewed Negative Unless Noted: Yes Past Ohnphen-Rckjtc-Rxuksn Hx Immunizations Up To Date Tetanus Booster (TDap): Unknown First/Initial COVID19 Vaccinat: UNKNOWN Second COVID19 Vaccination Jamaal: YES Third COVID19 Vaccination Date: YES Seasonal Allergies Seasonal Allergies: Yes Past Medical History Surgery/Hospitalization HX: PMH: ANXIETY, PTSD, HTN, DEPRESSION, COPD, POPCORN LUNG, FIBRO, RLS Surgeries: Yes (THYROID CYST REMOVED) Tubal Ligation Respiratory: Yes (COPD) Currently Using CPAP: No Currently Using BIPAP: No Cardiac: No Hypertension Neurological: No (TIA X2) 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 oz. kg; 26.00 BMI Method: General Appearance: moderate distress Eyes: Bilateral Eye Normal Inspection, Bilateral Eye PERRL, Bilateral Eye EOMI HEENT: PERRL/EOMI Neck: normal inspection Respiratory: chest non-tender, accessory muscle use, other (poor air movement throughout) Cardiovascular: regular rate, rhythm Gastrointestinal: soft, tenderness (mild luther umbilical tenderness) Extremities: normal range of motion, non-tender, normal inspection, no pedal edema, no calf tenderness Neurologic/Psychiatric: alert, normal mood/affect, oriented x 3 Skin: normal color, warm/dry, rash (candidal dermatitis under breasts; ) Focused Exam Lactate Level 08/09/22 14:45: Lactic Acid Level 1.43 Lactic Acid Level Laboratory Tests Test 08/09/22 14:45 Lactic Acid Level 1.43 MMOL/L (0.50-2.00) Progress/Results/Core Measures Suspected Sepsis SIRS Temperature: Pulse: Respiratory Rate: Laboratory Tests 08/09/22 14:45: White Blood Count 15.2H Blood Pressure / Mean: 08/09/22 14:45: Lactic Acid Level 1.43 Laboratory Tests 08/09/22 14:45: Creatinine 0.74, INR Comment 0.9, Platelet Count 705H, Total Bilirubin 0.3 Results/Orders Lab Results Laboratory Tests Test 08/09/22 14:45 08/09/22 17:29 Range/Units White Blood Count 15.2 H 4.3-11.0 10^3/uL Red Blood Count 5.06 3.80-5.11 10^6/uL Hemoglobin 10.0 L 11.5-16.0 g/dL Hematocrit 36 35-52 % Mean Corpuscular Volume 71 L 80-99 fL Mean Corpuscular Hemoglobin 20 L 25-34 pg Mean Corpuscular Hemoglobin Concent 28 L 32-36 g/dL Red Cell Distribution Width 17.4 H 10.0-14.5 % Platelet Count 705 H 130-400 10^3/uL Mean Platelet Volume 9.7 9.0-12.2 fL Immature Granulocyte % (Auto) 1 % Neutrophils (%) (Auto) 69 42-75 % Lymphocytes (%) (Auto) 21 12-44 % Monocytes (%) (Auto) 8 0-12 % Eosinophils (%) (Auto) 2 0-10 % Basophils (%) (Auto) 1 0-10 % Neutrophils # (Auto) 10.5 H 1.8-7.8 10^3/uL Lymphocytes # (Auto) 3.2 1.0-4.0 10^3/uL Monocytes # (Auto) 1.2 H 0.0-1.0 10^3/uL Eosinophils # (Auto) 0.3 0.0-0.3 10^3/uL Basophils # (Auto) 0.1 0.0-0.1 10^3/uL Immature Granulocyte # (Auto) 0.1 0.0-0.1 10^3/uL Neutrophils % (Manual) 69 % Lymphocytes % (Manual) 21 % Monocytes % (Manual) 10 % Eosinophils % (Manual) 0 % Basophils % (Manual) 0 % Band Neutrophils 0 % Polychromasia MARKED Hypochromasia MARKED Anisocytosis MARKED Target Cells SLIGHT Prothrombin Time 12.5 12.2-14.7 SEC INR Comment 0.9 0.8-1.4 Activated Partial Thromboplast Time 27 24-35 SEC Sodium Level 137 135-145 MMOL/L Potassium Level 4.1 3.6-5.0 MMOL/L Chloride Level 93 L 98-107 MMOL/L Carbon Dioxide Level 32 21-32 MMOL/L Anion Gap 12 5-14 MMOL/L Blood Urea Nitrogen 4 L 7-18 MG/DL Creatinine 0.74 0.60-1.30 MG/DL Estimat Glomerular Filtration Rate 95 BUN/Creatinine Ratio 5 Glucose Level 141 H 70-105 MG/DL Lactic Acid Level 1.43 0.50-2.00 MMOL/L Calcium Level 9.2 8.5-10.1 MG/DL Corrected Calcium 9.3 8.5-10.1 MG/DL Total Bilirubin 0.3 0.1-1.0 MG/DL Aspartate Amino Transf (AST/SGOT) 18 5-34 U/L Alanine Aminotransferase (ALT/SGPT) 6 0-55 U/L Alkaline Phosphatase 125 40-136 U/L Total Protein 8.5 H 6.4-8.2 GM/DL Albumin 3.9 3.2-4.5 GM/DL Urine Color YELLOW Urine Clarity CLEAR Urine pH 7.0 5-9 Urine Specific [place] 1.010 L 1.016-1.022 Urine Protein NEGATIVE NEGATIVE Urine Glucose (UA) NEGATIVE NEGATIVE Urine Ketones NEGATIVE NEGATIVE Urine Nitrite NEGATIVE NEGATIVE Urine Bilirubin NEGATIVE NEGATIVE Urine Urobilinogen 0.2 < = 1.0 MG/DL Urine Leukocyte Esterase NEGATIVE NEGATIVE Urine RBC (Auto) NEGATIVE NEGATIVE Urine RBC NONE /HPF Urine WBC NONE /HPF Urine Squamous Epithelial Cells RARE /HPF Urine Crystals NONE /LPF Urine Bacteria NEGATIVE /HPF Urine Casts NONE /LPF Urine Mucus NEGATIVE /LPF Urine Culture Indicated NO My Orders Orders - MARIA GUADALUPE CANDELARIO MD Cbc With Automated Diff (08/09/22 15:05) Comprehensive Metabolic Panel (08/09/22 15:05) Blood Culture (08/09/22 15:05) Sputum Culture (08/09/22 15:05) Urinalysis (08/09/22 15:05) Urine Culture (08/09/22 15:05) Protime With Inr (08/09/22 15:05) Partial Thromboplastin Time (08/09/22 15:05) Chest 1 View, Ap/Pa Only (08/09/22 15:05) Ed Iv/Invasive Line Start (08/09/22 15:05) Ed Iv/Invasive Line Start (08/09/22 15:05) Vital Signs Adult Sepsis Patie Q15M (08/09/22 15:05) O2 (08/09/22 15:05) Remove Rings In Anticipation O (08/09/22 15:05) Lactic Acid Analyzer (08/09/22 15:05) Albuterol Pre-Mix Nebs (Rt) (Proventil (08/09/22 15:15) Svn Small Volume Nebulizer (08/09/22 15:07) Ns Iv 1000 Ml (Sodium Chloride 0.9%) (08/09/22 15:15) Albuterol/Ipra Inhalation Soln (Duoneb I (08/09/22 15:15) Svn Small Volume Nebulizer (08/09/22 15:07) Albuterol/Ipra Inhalation Soln (Duoneb I (08/09/22 15:08) Manual Differential (08/09/22 14:45) Methylprednisolone Sod Succ (Solu-Medrol (08/09/22 16:00) Fluconazole Tablet (Diflucan Tablet) (08/09/22 17:45) Medications Given in ED Current Medications Medications Dose Ordered Sig/Martha Route Start Time Stop Time Status Last Admin Dose Admin Albuterol/ Ipratropium 3 ml STK-MED ONCE .ROUTE 08/09/22 15:08 08/09/22 15:10 DC 08/09/22 15:14 3 ML Fluconazole 200 mg ONCE ONCE PO 08/09/22 17:45 08/09/22 17:46 DC 08/09/22 17:44 200 MG Methylprednisolone Sodium Succinate 125 mg ONCE ONCE IVP 08/09/22 16:00 08/09/22 16:01 DC 08/09/22 17:33 125 MG Vital Signs/I&O 08/09/22 08/09/22 08/09/22 14:52 14:52 15:15 Temp 37.4 Pulse 122 Resp 20 B/P (MAP) 118/91 (100) Pulse Ox 69 99 O2 Delivery Nasal Cannula Nasal Cannula OxyMask O2 Flow Rate 1.00 1.00 15.00 Capillary Refill : Progress Note : Time: 17:33 Progress Note Patient reexamined, she is moving much better air. She is down to 2 L satting 97%. No increased work of breathing. She is quite belligerent when I ask about testing her for COVID again she adamantly refuses. Her abdominal exam is benign. She does have evidence of candidal dermatitis in her groin and under her breasts bilaterally. Blood cultures are pending. Urinalysis has been sent at this time. Her blood pressure is good, she is not tachycardic. I do not believe she meets any inpatient criteria. We will have her follow-up with her primary care physician this week. Recommend every 4-6 hour breathing treatments we will send her home on some steroids. Also nystatin powder and an oral Diflucan now for her rash. Diagnostic Imaging Diagonstic Imaging: Xray Plain Films/CT/US/NM/MRI: chest Comments [facility]. [place], [place] NAME: TAVARES JEFFERS [facility] REC#: [id number] PT STATUS: REG ER : 1965 PHYSICIAN: MARIA GUADALUPE CANDELARIO MD ADMIT DATE: 08/09/22/ER Signed Date of Exam:08/09/22 CHEST 1 VIEW, AP/PA ONLY INDICATION: Shortness of breath, hypoxia. Frontal chest obtained at 03:32 p.m. compared to 08/03/2022 Heart and mediastinal silhouette are normal in appearance. The lungs are clear. There is no pneumothorax or pleural fluid. IMPRESSION: Negative chest. Dictated by: Dictated on workstation # [id number] Dict: 08/09/22 1545 Trans: 08/09/22 1607 [id number] Interpreted by: MACY KELLEY MD Electronically signed by: MACY KELLEY MD 08/09/22 1607 Critical Care Note Critical Care Start Time: 14:55 Stop Time: 17:00 Total Time (minutes) 45 minutes critical care time in the evaluation and management of this 57-year-old with acute respiratory failure, hypoxia with room air saturations of 69%. Time includes initial evaluation and management with supplemental oxygenation, review and interpretation of laboratory studies and imaging, serial reevaluations, review of the medical record. Departure Impression Primary Impression: Acute exacerbation of chronic obstructive pulmonary disease (COPD) Disposition: HOME, SELF-CARE Condition: Improved Departure-Patient Inst. Decision time for Depature: 17:50 Referrals: [facility],LOCAL PHYSICIAN (PCP) Primary Care Physician Patient Instructions: COPD Exacerbation, Adult ED Add. Discharge Instructions: Take the prednisone daily as directed. This medication will taper off. 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 You have had blood cultures taken today. These will be monitored and if any bacteria grow from your blood cultures we will notify you and start you on appropriate antibiotics. You should follow-up with a primary care doctor for your COPD/emphysema. Use your inhalers every 4-6 hours over the course of the next 1 to 2 days for your breathing. Follow-up with your cancer doctor as scheduled. Return to the emergency department for any new, concerning or emergent complaints. Scripts Prednisone (Prednisone) 10 Mg Tab.ds.pk 10 MG PO DAILY, #21 EA Take 6 tabs(60mg)daily,decrease by 1 tab(10MG)daily. Prov: MARIA GUADALUPE CANDELARIO MD 08/09/22 Copy Copies To 1: ANA MARIA EATON KATHRYN M MD Aug 09, 2022 15:11
[2022-08-09] MEDS ORDERED: RT-ALBUTEROL/IPRATROPIUM 3 ML (DUONEB) VIAL INH ONE (15:15)
[2022-08-09] MEDS ORDERED: RT-ALBUTEROL SULF 2.5 MG/3 ML PRE-MIX VIAL INH ONE (15:15)
[2022-08-09] MEDS ORDERED: NS IV 1000 ML 1,000 ML IV SCH (15:15)
[2022-08-09 15:19] LABS: BASOPHILS # (AUTO) 0.1 10^3/uL (0.0-0.1); BASOPHILS % (AUTO) 1 % (0-10); EOSINOPHILS # (AUTO) 0.3 10^3/uL (0.0-0.3); EOSINOPHILS % (AUTO) 2 % (0-10); HEMATOCRIT 36 % (35-52); LYMPHOCYTES # (AUTO) 3.2 10^3/uL (1.0-4.0); LYMPHOCYTES % (AUTO) 21 % (12-44); MEAN CORPUSCULAR HEMOGLOBIN 20 pg (25-34); MEAN CORPUSCULAR HGB CONC 28 g/dL (32-36); MEAN CORPUSCULAR VOLUME 71 fL (80-99); MEAN PLATELET VOLUME 9.7 fL (9.0-12.2); MONOCYTES # (AUTO) 1.2 10^3/uL (0.0-1.0); MONOCYTES % (AUTO) 8 % (0-12); NEUTROPHILS # (AUTO) 10.5 10^3/uL (1.8-7.8); NEUTROPHILS % (AUTO) 69 % (42-75); PLATELET COUNT 705 10^3/uL (130-400); WHITE BLOOD COUNT 15.2 10^3/uL (4.3-11.0)
[2022-08-09 15:28] LABS: ALBUMIN 3.9 GM/DL (3.2-4.5)
[2022-08-09 15:29] LABS: POTASSIUM 4.1 MMOL/L (3.6-5.0)
[2022-08-09 15:30] LABS: CALCIUM 9.2 MG/DL (8.5-10.1)
[2022-08-09 15:31] LABS: TOTAL PROTEIN 8.5 GM/DL (6.4-8.2)
[2022-08-09 15:33] LABS: BILIRUBIN,TOTAL 0.3 MG/DL (0.1-1.0)
[2022-08-09 15:34] LABS: INR 0.9 (0.8-1.4); PROTHROMBIN TIME PATIENT 12.5 SEC (12.2-14.7)
[2022-08-09 15:35] LABS: CREATININE SERUM 0.74 MG/DL (0.60-1.30)
[2022-08-09 15:45] LABS: ANISOCYTOSIS MARKED; BAND NEUTROPHILS 0 %; BASOPHILS % (MANUAL) 0 %; EOSINOPHILS % (MANUAL) 0 %; HYPOCHROMASIA MARKED; LYMPHOCYTES % (MANUAL) 21 %; MONOCYTES % (MANUAL) 10 %; NEUTROPHILS % (MANUAL) 69 %; POLYCHROMASIA MARKED; TARGET CELLS SLIGHT
--- NOTE | 2022-08-09 15:48 | Diagnostic Imaging Report ---
INDICATION: Shortness of breath, hypoxia. Frontal chest obtained at 03:32 p.m. compared to 08/03/2022 Heart and mediastinal silhouette are normal in appearance. The lungs are clear. There is no pneumothorax or pleural fluid. IMPRESSION: Negative chest. Dictated by: Dictated on workstation # [id number]
[2022-08-09] MEDS ORDERED: methylPREDNISolone 125 MG (Solu-MEDROL) VIAL IVP ONE (16:00)
[2022-08-09 17:34] LABS: BILIRUBIN,URINE NEGATIVE (NEGATIVE); CLARITY,URINE CLEAR; COLOR,URINE YELLOW; GLUCOSE, URINE (UA) NEGATIVE (NEGATIVE); KETONES,URINE NEGATIVE (NEGATIVE); LEUKOCYTE ESTERASE ,URINE NEGATIVE (NEGATIVE); NITRITE,URINE NEGATIVE (NEGATIVE); PROTEIN,URINE NEGATIVE (NEGATIVE)
[2022-08-09 17:40] LABS: BACTERIA,URINE NEGATIVE /HPF; SQUAMOUS EPITHELIAL CELL,UR RARE /HPF
[2022-08-09] MEDS ORDERED: fluCOnazole (DIFLUCAN) 100 MG TAB PO ONE (17:45)
[2022-08-09] MEDS ORDERED: PRED10TA22 PO (18:00)
[2022-08-09 18:08] VITALS: BP 120/73
== END 2022-08-09 18:29 | disposition home or self-care (01) ==
LOC: EDUNIT# 14:46 → ER 14:47
DX: J44.1 Chronic obstructive pulmonary disease with (acute) exacerbation (principal); Z99.81 Dependence on supplemental oxygen; Z91.14 Patient's other noncompliance with medication regimen; Z28.310 Unvaccinated for COVID-19
CPT/HCPCS: 36415; 71045; 80053; 81000; 83605; 85007; 85027; 85610; 85730; 87040; 87077; 87088; 87186; 94640

== ENCOUNTER 2022-09-07 19:37 | Emergency (ER) | payer MEDICARE, MEDICAID ==
[~2022-09-07 19:37] MED LIST changes: +PRED10TA22 PO
[2022-09-07] MEDS ORDERED: CLINDAMYCIN 600 MG/4ML (CLEOCIN) VIAL IM ONE (20:15)
[2022-09-07] MEDS ORDERED: CLINDAMYCIN 600 MG/50 ML IVPB 50 ML IV ONE (20:30)
[2022-09-07 20:38] LABS: BASOPHILS # (AUTO) 0.1 10^3/uL (0.0-0.1); BASOPHILS % (AUTO) 0 % (0-10); EOSINOPHILS # (AUTO) 0.8 10^3/uL (0.0-0.3); EOSINOPHILS % (AUTO) 5 % (0-10); HEMATOCRIT 33 % (35-52); HEMOGLOBIN 9.7 g/dL (11.5-16.0); LYMPHOCYTES # (AUTO) 3.3 10^3/uL (1.0-4.0); LYMPHOCYTES % (AUTO) 21 % (12-44); MEAN CORPUSCULAR HEMOGLOBIN 19 pg (25-34); MEAN CORPUSCULAR HGB CONC 30 g/dL (32-36); MEAN CORPUSCULAR VOLUME 65 fL (80-99); MONOCYTES # (AUTO) 1.4 10^3/uL (0.0-1.0); MONOCYTES % (AUTO) 9 % (0-12); NEUTROPHILS # (AUTO) 10.1 10^3/uL (1.8-7.8); NEUTROPHILS % (AUTO) 64 % (42-75); PLATELET COUNT 701 10^3/uL (130-400); WHITE BLOOD COUNT 15.8 10^3/uL (4.3-11.0)
[2022-09-07 20:48] LABS: ALBUMIN 3.5 GM/DL (3.2-4.5)
[2022-09-07 20:49] LABS: POTASSIUM 4.1 MMOL/L (3.6-5.0)
[2022-09-07 20:50] LABS: CALCIUM 9.3 MG/DL (8.5-10.1)
[2022-09-07 20:51] LABS: TOTAL PROTEIN 7.5 GM/DL (6.4-8.2)
[2022-09-07 20:53] LABS: BILIRUBIN,TOTAL 0.3 MG/DL (0.1-1.0); EOSINOPHILS % (MANUAL) 8 %; LYMPHOCYTES % (MANUAL) 22 %; MONOCYTES % (MANUAL) 11 %; NEUTROPHILS % (MANUAL) 59 %; POLYCHROMASIA MARKED; TARGET CELLS MODERATE
[2022-09-07 20:55] LABS: CREATININE SERUM 0.75 MG/DL (0.60-1.30)
[2022-09-07] MEDS ORDERED: CLIN-144 PO (21:02)
--- NOTE | 2022-09-07 21:02 | ED Integumentary General ---
General Chief Complaint: Skin/Wound Problems Stated Complaint: INSECT BITES ON LT ARM Nursing Triage Note: PT ARRIVAL TO ER VIA PRIVATE VEHICLE WITH COMPLAINT OF ABSCESS OR BITES TO LEFT ARM. THIS STARTED LAST WEEK. PATIENT STATES THAT SHE TOOK AN OLD ANTIBIOTIC THAT SHE HAD, WITHOUT RELIEF. Source: patient Exam Limitations: no limitations History of Present Illness Date Seen by Provider: Sep 07, 2022 Allergies and Home Medications Allergies Coded Allergies: alcohol (Verified Allergy, Unknown, Hives, 04/13/22) morphine (Verified Allergy, Unknown, Hives- pt has tolerated hydrocodone, 06/24/22) Patient Home Medication List Albuterol Sulfate (Ventolin Hfa) 90 Mcg Hfa.aer.ad, 2 PUFF INH Q6H PRN for SHORTNESS OF BREATH Prescribed by: PILI ORTIZ on 04/16/22 1117 Alprazolam (Alprazolam) 0.5 Mg Tablet, 1 MG PO QID PRN for ANXIETY, (Reported) Entered as Reported by: LUCIEN JADE on 08/04/22 1014 Amoxicillin/Potassium Clav (Amox Tr-K Clv 500-125 mg Tab) 500 Mg-125 Mg Tablet, 1 EA PO BID, (Reported) Entered as Reported by: LUCIEN JADE on 08/04/22 1014 Ascorbate Calcium (Vitamin C) 500 Mg Tablet, 500 MG PO DAILY, (Reported) Entered as Reported by: LUCIEN JADE on 08/04/22 1014 Cyanocobalamin (Vitamin B-12) (Vitamin B-12) 1,000 Mcg Tablet, 1,000 MCG PO DAILY, (Reported) Entered as Reported by: LUCIEN JADE on 08/04/22 1014 Fluticasone/Vilanterol (Breo Ellipta 200-25 Mcg INH) 200 Mcg-25 Mcg/Dose Blst.w.dev, 1 EACH IH DAILY, (Reported) Entered as Reported by: LUCIEN JADE on 08/04/22 1014 Hydrochlorothiazide (Hydrochlorothiazide) 25 Mg Tablet, 25 MG PO DAILY, ( Reported) Entered as Reported by: LUCIEN JADE on 04/14/22 1207 Hydrocodone/Acetaminophen (Hydrocodone-Acetamin 10-325 mg) 10 Mg-325 Mg Tablet, 1 EA PO Q6H PRN for PAIN-MODERATE (5-7), (Reported) Entered as Reported by: LUCIEN JADE on 08/04/22 1014 [place]-3S/Dha/Epa/Fish Oil/D3 (Fish Oil + D3 Softgel) 360 Mg-1,200 Mg-1,000 Unit Capsule, 1 EACH PO DAILY, (Reported) Entered as Reported by: LUCIEN JADE on 08/04/22 1014 Omeprazole Magnesium (Omeprazole Magnesium) 20 Mg Capsule.dr, 40 MG PO DAILY PRN for HEARTBURN, (Reported) Entered as Reported by: LUCIEN JADE on 08/04/22 1014 Ondansetron HCl (Ondansetron HCl) 4 Mg Tablet, 4 MG PO Q4H PRN for NAUSEA/VOMITING-1ST LINE, (Reported) Entered as Reported by: LUCIEN JADE on 08/04/22 1014 Prednisone (Prednisone) 10 Mg Tab.ds.pk, 10 MG PO DAILY Prescribed by: MARIA GUADALUPE CANDELARIO on 08/09/22 1800 Promethazine HCl (Promethazine Tablet) 25 Mg Tablet, 12.5 MG PO Q6H PRN for NAUSEA/VOMITING Prescribed by: HELENE PORTER on 08/04/22 1513 Past Yrqvbed-Wxjofa-Xenhjt Hx Patient Social History Tobacco Use?: Yes Tobacco type used: Cigarettes Smoking Status: Light Tobacco Smoker Use of E-Cig and/or Vaping dev: No Substance use?: No Alcohol Use?: No Pt feels they are or have been: No Immunizations Up To Date Tetanus Booster (TDap): Unknown Influenza Vaccine Up-to-Date: No; Not Current First/Initial COVID19 Vaccinat: UNKNOWN Second COVID19 Vaccination Jamaal: UNKNOWN Third COVID19 Vaccination Date: UNKNOWN COVID19 Vaccine Youth Development Specialist: MODERNA Seasonal Allergies Seasonal Allergies: Yes Past Medical History Surgery/Hospitalization HX: PMH: ANXIETY, PTSD, HTN, DEPRESSION, COPD, POPCORN LUNG, FIBRO, RLS, COLON CA, BOWEL RESECTION Surgeries: Yes (THYROID CYST REMOVED) Tubal Ligation Respiratory: Yes (COPD) Currently Using CPAP: No Currently Using BIPAP: No Cardiac: No Hypertension Neurological: No (TIA X2) 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, 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 Genitourinary: Yes Bladder Infection Gastrointestinal: Yes Gastroesophageal Reflux Musculoskeletal: Yes Fibromyalgia Endocrine: No HEENT: No Cancer: Yes (CLL) Did You Recieve Any Treatments: Yes What Type of Treatment Did You: Radiation Psychosocial: Yes Anxiety Integumentary: Yes (RASH) Recent Skin Changes Blood Disorders: Yes (ANEMIA) Family Medical History Cancer Physical Exam Vital Signs Vital Signs - First Documented 09/07/22 19:42 Temp 37.5 Pulse 124 Resp 24 B/P (MAP) 144/84 (104) Pulse Ox 94 O2 Delivery Nasal Cannula O2 Flow Rate 2.00 Capillary Refill : Less Than 3 Seconds Progress/Results/Core Measures Results/Orders Lab Results Laboratory Tests Test 09/07/22 20:28 Range/Units White Blood Count 15.8 H 4.3-11.0 10^3/uL Red Blood Count 5.05 3.80-5.11 10^6/uL Hemoglobin 9.7 L 11.5-16.0 g/dL Hematocrit 33 L 35-52 % Mean Corpuscular Volume 65 L 80-99 fL Mean Corpuscular Hemoglobin 19 L 25-34 pg Mean Corpuscular Hemoglobin Concent 30 L 32-36 g/dL Red Cell Distribution Width 16.8 H 10.0-14.5 % Platelet Count 701 H 130-400 10^3/uL Mean Platelet Volume 9.0 9.0-12.2 fL Immature Granulocyte % (Auto) 1 % Neutrophils (%) (Auto) 64 42-75 % Lymphocytes (%) (Auto) 21 12-44 % Monocytes (%) (Auto) 9 0-12 % Eosinophils (%) (Auto) 5 0-10 % Basophils (%) (Auto) 0 0-10 % Neutrophils # (Auto) 10.1 H 1.8-7.8 10^3/uL Lymphocytes # (Auto) 3.3 1.0-4.0 10^3/uL Monocytes # (Auto) 1.4 H 0.0-1.0 10^3/uL Eosinophils # (Auto) 0.8 H 0.0-0.3 10^3/uL Basophils # (Auto) 0.1 0.0-0.1 10^3/uL Immature Granulocyte # (Auto) 0.1 0.0-0.1 10^3/uL Neutrophils % (Manual) 59 % Lymphocytes % (Manual) 22 % Monocytes % (Manual) 11 % Eosinophils % (Manual) 8 % Polychromasia MARKED Target Cells MODERATE Sodium Level 137 135-145 MMOL/L Potassium Level 4.1 3.6-5.0 MMOL/L Chloride Level 100 98-107 MMOL/L Carbon Dioxide Level 25 21-32 MMOL/L Anion Gap 12 5-14 MMOL/L Blood Urea Nitrogen 6 L 7-18 MG/DL Creatinine 0.75 0.60-1.30 MG/DL Estimat Glomerular Filtration Rate 94 BUN/Creatinine Ratio 8 Glucose Level 117 H 70-105 MG/DL Calcium Level 9.3 8.5-10.1 MG/DL Corrected Calcium 9.7 8.5-10.1 MG/DL Total Bilirubin 0.3 0.1-1.0 MG/DL Aspartate Amino Transf (AST/SGOT) 13 5-34 U/L Alanine Aminotransferase (ALT/SGPT) 9 0-55 U/L Alkaline Phosphatase 175 H 40-136 U/L Total Protein 7.5 6.4-8.2 GM/DL Albumin 3.5 3.2-4.5 GM/DL My Orders Orders - SEGUNDO MELCHOR APRN Cbc With Automated Diff (09/07/22 20:00) Comprehensive Metabolic Panel (09/07/22 20:00) Wound Culture (09/07/22 20:02) Iv/Invasive Line Insertion .IV INSERT (09/07/22 20:20) Clindamycin 600 Mg/50 Ml Ivpb (Cleocin P (09/07/22 20:30) Manual Differential (09/07/22 20:28) Medications Given in ED Current Medications Medications Dose Ordered Sig/Martha Route Start Time Stop Time Status Last Admin Dose Admin Clindamycin Phosphate/Dextrose 50 ml @ 100 mls/hr ONCE ONCE IV 09/07/22 20:30 09/07/22 20:59 DC 09/07/22 20:40 100 MLS/HR Vital Signs/I&O 09/07/22 19:42 Temp 37.5 Pulse 124 Resp 24 B/P (MAP) 144/84 (104) Pulse Ox 94 O2 Delivery Nasal Cannula O2 Flow Rate 2.00 Blood Pressure Mean: 104 Departure Impression Primary Impression: Abscess of left elbow Disposition: 01 HOME, SELF-CARE Condition: Stable Departure-Patient Inst. Decision time for Depature: 21:00 Referrals: NO,LOCAL PHYSICIAN (PCP/Family) Primary Care Physician Patient Instructions: Boil, Adult ED Scripts Clindamycin HCl (Clindamycin HCl) 300 Mg Capsule 300 MG PO QID for 7 Days, #28 CAP 0 Refills Prov: SEGUNDO MELCHOR APRN 09/07/22 SEGUNDO MELCHOR APRN Sep 07, 2022 21:02
[2022-09-07 21:16] VITALS: BP 138/82
== END 2022-09-07 21:17 | disposition home or self-care (01) ==
LOC: EDUNIT# 19:37 → ER 19:39
DX: L02.414 Cutaneous abscess of left upper limb (principal); F17.210 Nicotine dependence, cigarettes, uncomplicated; Z28.311 Partially vaccinated for COVID-19
CPT/HCPCS: 36415; 80053; 85007; 85027; 87070; 87077; 87205; 99282